=== PATIENT | male | born 1985 | race Caucasian/White ===

== ENCOUNTER 2019-05-23 17:45 | Inpatient (IN) ==
[2019-05-23 18:17] LABS: Appearance Urine Clear (Clear); Bacteria Urine Automated Negative (Negative); Blood Urine Negative (Negative); Color Urine Dark Yellow; Epithelial Cell Urine Auto 20-30 /lpf (0-5); Glucose Urine UA Negative (Negative); Ketones Urine 2+ (Negative); Leukocyte Esterase Urine Negative (Negative); Nitrite Urine Negative (Negative); Protein Urine Trace (Negative); RBC Urine Automated 0-4 /hpf (0-4); Specific Gravity Urine 1.038 (1.000-1.030); Urobilinogen Urine Negative (Negative); pH Urine 5.5 (4.5-7.5)
[2019-05-23 18:23] LABS: Bilirubin Urine Negative (Negative); Ictotest Urine Negative (Negative)
[2019-05-23 18:30] LABS: Amphetamines+Metham, Urine Neg (Neg); Barbiturates, Urine Neg (Neg); Benzodiazepine, Urine Neg (Neg); Cocaine, Urine Neg (Neg); MDMA (Ecstacy), Urine Neg (Neg); Methadone, Urine Neg (Neg); Opiate, Urine Neg (Neg); Phencyclidine, Urine Neg (Neg)
[2019-05-23 18:36] LABS: Mucus Urine Present (None Prsent)
[2019-05-23 18:51] LABS: Basophils # (auto) 0.03 K/uL (0-0.2); Basophils % (auto) 0.3 %; Eosinophils # (auto) 0.07 K/uL (0-0.5); Eosinophils % (auto) 0.7 %; Hematocrit (blood only) 46.5 % (42-52); Hemoglobin 16.5 g/dL (14.0-18.0); Immature Granulocytes # (auto) 0.02 K/uL (0.00-0.02); Immature Granulocytes % (auto) 0.2 %; Lymphocytes # (auto) 1.76 K/uL (1.2-3.4); Lymphocytes % (auto) 17.3 %; Mean Corpuscular Hgb Conc 35.5 g/dL (32-36); Mean Corpuscular Volume 87.2 fL (80-100); Mean Platelet Volume 12.2 fL (7.4-10.4); Monocytes % (auto) 8.9 %; Neutrophils # (auto) 7.38 K/uL (1.4-6.5); Neutrophils % (auto) 72.6 %; Platelet Count 147 K/uL (130-400); RDW Coefficient of Variation 14.6 % (11.5-14.5); RDW Standard Deviation 46.6 fL (36.4-46.3); Red Blood Count 5.33 M/uL (4.7-6.1); White Blood Count 10.16 K/uL (4.8-10.8)
[2019-05-23 19:01] LABS: Albumin Level 4.1 gm/dl (3.4-5.0); BUN Creatinine Ratio 10.8 (10-20); Calcium 9.3 mg/dl (8.5-10.1); Creatinine Clr Calc Pharmacy 145.5 ml/min; Est GFR (African American) 115.5; Est GFR (Non-African American) 99.7; Potassium 3.5 mmol/L (3.5-5.1)
--- NOTE | 2019-05-23 19:02 | Emergency Department Note ---
History of Present Illness General Chief complaint: Mental Health Evaluation Stated complaint: MENTAL HEALTH EVAL Time Seen by Provider: 05/23/19 17:53 History of Present Illness Provider complaint: Auditory hallucinations 34-year-old male with history of paranoid schizophrenia presents to the emergency department for auditory hallucinations. He presents to the emergency department with his flat optical element maker from [facility] where he lives. Textile Screen Printer reports that the patient has not slept the last 3 days. Patient reports he has been having auditory hallucinations. The auditory hallucinations have been making him sad and scared. The voices are threatening him and demanding money of him. The patient reports that the auditory hallucinations are sometimes a man's voice and sometimes a woman's voice. He states that the man's voice sometimes tells him to hurt other people and because of this he is afraid that he will hurt someone else. He stated he was afraid to travel with his flat optical element maker because he was afraid that he would hurt her due to the voice talking to him. The flat optical element maker at bedside also states that the patient had a recent medication change. She also reports that the patient did confide in her and state he was having suicidal thoughts earlier today. Home Medications Home Medications Medication Instructions Recorded Confirmed Type aripiprazole [Abilify Maintena] 300 mg IM Q4WK 05/21/19 05/23/19 History fluconazole [Diflucan] 200 mg PO DIRECTED PRN 05/21/19 05/23/19 History acetaminophen [Tylenol Extra 500 mg PO DIRECTED PRN 05/23/19 05/23/19 History Strength] aripiprazole [Abilify] 5 mg PO HS 05/23/19 05/23/19 History ascorbic acid (vitamin C) [Vitamin 1,000 mg PO BID 05/23/19 05/23/19 History C] benztropine 0.5 mg PO TID 05/23/19 05/23/19 History cholecalciferol (vitamin D3) 2,000 unit PO DAILY 05/23/19 05/23/19 History lorazepam [Ativan] 0.5 mg PO TID 05/23/19 05/23/19 History multivitamin 1 tab PO BID 05/23/19 05/23/19 History niacin 1,000 mg PO HS 05/23/19 05/23/19 History niacin 500 mg PO BID 05/23/19 05/23/19 History pyridoxine (vitamin B6) [Vitamin 100 mg PO QPM 05/23/19 05/23/19 History B-6] salmon oil-omega-3 fatty acids 1 cap PO DAILY 05/23/19 05/23/19 History [[place] Oil-1000] vitamin B complex 1 tab PO DAILY 05/23/19 05/23/19 History vitamin E 800 unit PO DAILY 05/23/19 05/23/19 History Allergies Allergy/AdvReac Type Severity Reaction Status Date / Time No Known Allergies Allergy Verified 05/23/19 18:03 Past Med/Surg History Medical History Mood disorder (Acute) No pertinent family history Paranoid schizophrenia (Chronic) Surgical History No pertinent past surgical history Social History Preferred Language: Kyrgyz Feels Safe at Home: Yes Smoking Status: Never smoker Hx Alcohol Use: No Hx Substance Use: No Review of Systems A total of 10 systems reviewed and were otherwise negative Physical Exam Vital Signs Vital Signs - 24 hr 05/23/19 17:47 Temperature 36.5 C Temperature Source Oral Pulse Rate 116 H Respiratory Rate 19 Blood Pressure 141/91 H Blood Pressure Mean 107 Pulse Oximetry 93 Sepsis Recent Fever Within 48 Hours No Sepsis Action Taken by Nursing No Action Required Physical Exam HENT: Exam performed. - Head: Normocephalic and atraumatic. - Right Ear: External ear normal. No mastoid tenderness. - Left Ear: External ear normal. No mastoid tenderness. - Mouth/Throat: The oropharynx is clear and moist. No trismus in the jaw. No dental abscesses or uvula swelling. No oropharyngeal exudate or tonsillar abscesses. EYES: Conjunctivae and EOM are normal. Pupils are equal, round, and reactive to light. Right eye exhibits no discharge. Left eye exhibits no discharge. No scleral icterus. NECK: Normal range of motion. Neck supple. No JVD present. No spinous process tenderness present. No carotid bruit present. No rigidity. No tracheal deviation and normal range of motion present. No Brudzinski's sign and no Kernig's sign noted. CV: Normal rate, regular rhythm, normal heart sounds and intact distal pulses. There is no peripheral edema. Palpable radial pulses bue. PULM/CHEST: Effort normal and breath sounds normal. No respiratory distress. No stridor. He has no wheezes. He has no rales. - Chest Wall: He exhibits no tenderness. ABD: The abdomen is soft. Bowel sounds are normal. He has no distension. No mass is present. There is no tenderness. There is no rebound, no guarding, no Edwards's sign and no tenderness at McBurney's point. Rovsig negative. MUSC/SKEL: Normal range of motion. There is no peripheral edema, tenderness or deformity. LYMPH: No cervical adenopathy. NEURO: He is alert and oriented to person, place, and time. He has normal strength. No cranial nerve deficit or sensory deficit. Coordination and gait normal. GCS eye subscore is 4. GCS verbal subscore is 5. GCS motor subscore is 6. Cerebellar tests wnl. SKIN: Skin is warm and dry. He is not diaphoretic. PSYCH: Patient appears sad and scared. Having auditory hallucinations currently. Course Course 1819: The patient was evaluated in room A8. A complete history and physical exam was performed. 1899: Patient medically cleared. Placed in observation at this time awaiting psychiatric evaluation and placement. 2216: Signs stable. Patient accepted into inpatient psychiatric [facility] in 3 S. Administered Medications Discontinued Medications Aripiprazole (Abilify) 5 mg PO NOW STA Stop: 05/23/19 21:58 Last Admin: 05/23/19 22:12 Dose: 5 mg Documented by: [id number] Benztropine Mesylate (Cogentin) 0.5 mg PO NOW STA Stop: 05/23/19 21:58 Last Admin: 05/23/19 22:12 Dose: 0.5 mg Documented by: [id number] Lorazepam (Ativan) 0.5 mg PO NOW STA Stop: 05/23/19 21:58 Last Admin: 05/23/19 22:12 Dose: 0.5 mg Documented by: [id number] Medical Decision Making Laboratory Data Result diagrams: 05/23/19 18:31 05/23/19 18:31 Lab Results 05/23/19 05/23/19 05/23/19 Range/Units 17:55 17:55 18:31 WBC 10.16 (4.8-10.8) K/uL RBC 5.33 (4.7-6.1) M/uL Hgb 16.5 (14.0-18.0) g/dL Hct 46.5 (42-52) % MCV 87.2 (80-100) fL MCH 31.0 (25-34) pg MCHC 35.5 (32-36) g/dL RDW Std Deviation 46.6 H (36.4-46.3) fL RDW Coeff of Fidelina 14.6 H (11.5-14.5) % Plt Count 147 (130-400) K/uL MPV 12.2 H (7.4-10.4) fL Immature Gran % (Auto) 0.2 % Neut % (Auto) 72.6 % Lymph % (Auto) 17.3 % [place] % (Auto) 8.9 % Eos % (Auto) 0.7 % Baso % (Auto) 0.3 % Immature Gran # (Auto) 0.02 (0.00-0.02) K/uL Neut # (Auto) 7.38 H (1.4-6.5) K/uL Lymph # (Auto) 1.76 (1.2-3.4) K/uL [place] # (Auto) 0.90 H (0.11-0.59) K/uL Eos # (Auto) 0.07 (0-0.5) K/uL Baso # (Auto) 0.03 (0-0.2) K/uL Sodium (136-145) mmol/L Potassium (3.5-5.1) mmol/L Chloride (98-107) mmol/L Carbon Dioxide (21-32) mmol/L Anion Gap (3-11) BUN (7-18) mg/dl Creatinine (0.6-1.4) mg/dl Est Cr Clr Drug Dosing ml/min Est GFR ( Amer) Est GFR (Non-Af Amer) BUN/Creatinine Ratio (10-20) Glucose (70-99) mg/dl Calcium (8.5-10.1) mg/dl Total Bilirubin (0.2-1) mg/dl AST (15-37) U/L ALT (12-78) U/L Alkaline Phosphatase (45-117) U/L Total Protein (6.4-8.2) gm/dl Albumin (3.4-5.0) gm/dl Globulin (2.5-4.0) gm/dl Albumin/Globulin Ratio (0.9-2) TSH (0.300-4.500) uIu/ml Urine Color Dark Yellow Urine Appearance Clear (Clear) Urine pH 5.5 (4.5-7.5) Ur Specific [place] 1.038 H (1.000-1.030) Urine Protein Trace H (Negative) Urine Glucose (UA) Negative (Negative) Urine Ketones 2+ H (Negative) Urine Blood Negative (Negative) Urine Nitrite Negative (Negative) Urine Bilirubin Negative (Negative) Urine Urobilinogen Negative (Negative) Ur Leukocyte Esterase Negative (Negative) Urine WBC (Auto) 1-5 (0-5) /hpf Urine RBC (Auto) 0-4 (0-4) /hpf U Hyaline Cast (Auto) 1-5 (0-5) /lpf U Epithel Cells (Auto) 20-30 H (0-5) /lpf Urine Bacteria (Auto) Negative (Negative) Urine Mucus Present A (None Prsent) Salicylates (2.8-20) mg/dl Urine Opiates Screen Neg (Neg) Ur Methadone, Qual Neg (Neg) Acetaminophen (10-30) ug/ml Urine Barbiturates Neg (Neg) Ur Phencyclidine (PCP) Neg (Neg) U Amphetamin/Meth Scrn Neg (Neg) MDMA (Ecstasy) Screen Neg (Neg) U Benzodiazepines Scrn Neg (Neg) Ur Cocaine Metabolite Neg (Neg) U Marijuana (THC) Screen Neg (Neg) Ethyl Alcohol mg/dL (0-3) mg/dl 05/23/19 05/23/19 05/23/19 Range/Units 18:31 18:31 18:31 WBC (4.8-10.8) K/uL RBC (4.7-6.1) M/uL Hgb (14.0-18.0) g/dL Hct (42-52) % MCV (80-100) fL MCH (25-34) pg MCHC (32-36) g/dL RDW Std Deviation (36.4-46.3) fL RDW Coeff of Fidelina (11.5-14.5) % Plt Count (130-400) K/uL MPV (7.4-10.4) fL Immature Gran % (Auto) % Neut % (Auto) % Lymph % (Auto) % [place] % (Auto) % Eos % (Auto) % Baso % (Auto) % Immature Gran # (Auto) (0.00-0.02) K/uL Neut # (Auto) (1.4-6.5) K/uL Lymph # (Auto) (1.2-3.4) K/uL [place] # (Auto) (0.11-0.59) K/uL Eos # (Auto) (0-0.5) K/uL Baso # (Auto) (0-0.2) K/uL Sodium 137 (136-145) mmol/L Potassium 3.5 (3.5-5.1) mmol/L Chloride 106 (98-107) mmol/L Carbon Dioxide 26 (21-32) mmol/L Anion Gap 5.0 (3-11) BUN 11 (7-18) mg/dl Creatinine 0.99 (0.6-1.4) mg/dl Est Cr Clr Drug Dosing 145.5 ml/min Est GFR ( Amer) 115.5 Est GFR (Non-Af Amer) 99.7 BUN/Creatinine Ratio 10.8 (10-20) Glucose 91 (70-99) mg/dl Calcium 9.3 (8.5-10.1) mg/dl Total Bilirubin 0.9 (0.2-1) mg/dl AST 43 H (15-37) U/L ALT 78 (12-78) U/L Alkaline Phosphatase 76 (45-117) U/L Total Protein 7.8 (6.4-8.2) gm/dl Albumin 4.1 (3.4-5.0) gm/dl Globulin 3.7 (2.5-4.0) gm/dl Albumin/Globulin Ratio 1.1 (0.9-2) TSH 1.310 (0.300-4.500) uIu/ml Urine Color Urine Appearance (Clear) Urine pH (4.5-7.5) Ur Specific [place] (1.000-1.030) Urine Protein (Negative) Urine Glucose (UA) (Negative) Urine Ketones (Negative) Urine Blood (Negative) Urine Nitrite (Negative) Urine Bilirubin (Negative) Urine Urobilinogen (Negative) Ur Leukocyte Esterase (Negative) Urine WBC (Auto) (0-5) /hpf Urine RBC (Auto) (0-4) /hpf U Hyaline Cast (Auto) (0-5) /lpf U Epithel Cells (Auto) (0-5) /lpf Urine Bacteria (Auto) (Negative) Urine Mucus (None Prsent) Salicylates < 1.7 L (2.8-20) mg/dl Urine Opiates Screen (Neg) Ur Methadone, Qual (Neg) Acetaminophen < 2 L (10-30) ug/ml Urine Barbiturates (Neg) Ur Phencyclidine (PCP) (Neg) U Amphetamin/Meth Scrn (Neg) MDMA (Ecstasy) Screen (Neg) U Benzodiazepines Scrn (Neg) Ur Cocaine Metabolite (Neg) U Marijuana (THC) Screen (Neg) Ethyl Alcohol mg/dL < 3.0 (0-3) mg/dl MDM Narrative Observation note Indication: Psychiatric evaluation/placement Patient, with history of paranoid schizophrenia was first seen at 1820 and the observation time began at 1900 and was necessary in order to determine psychiatric evaluation/placement. Upon re-evaluation, 3 hours and 17 minutes of observation revealed that the patient should be admitted for inpatient psychiatric help. Disposition date and time May 23, [id number]. Impression & Plan Paranoid schizophrenia, Acute psychosis, Hallucinations Discharge Plan Visit Data Chief Complaint: Mental Health Evaluation Stated Complaint: MENTAL HEALTH EVAL ED Provider: Ezekiel Aceves Discharge Problem: Paranoid schizophrenia, Acute psychosis, Hallucinations Patient Disposition: Admitted As Inpatient Forms Stand Alone Forms: [facility], Suicide Prevention Resources Prescriptions Prescriptions: No Action Abilify Maintena 400 mg suspension,extended rel syring 300 mg IM Q4WK RF: 0 fluconazole [Diflucan] 200 mg tablet 200 mg PO DIRECTED PRN (Reason: Acne) RF: 0 benztropine 0.5 mg Tablet 0.5 mg PO TID RF: 0 aripiprazole [Abilify] 5 mg Tablet 5 mg PO HS RF: 0 acetaminophen [Tylenol Extra Strength] 500 mg Tablet 500 mg PO DIRECTED PRN (Reason: pain/fever) RF: 0 multivitamin Tablet 1 tab PO BID RF: 0 [place] Oil-1000 1,000-200 mg Capsule 1 cap PO DAILY RF: 0 niacin 500 mg Tablet 500 mg PO BID RF: 0 niacin 1,000 mg Tablet Extended Release 1,000 mg PO HS RF: 0 ascorbic acid (vitamin C) [Vitamin C] 1,000 mg Tablet 1,000 mg PO BID RF: 0 cholecalciferol (vitamin D3) 2,000 unit Tablet,Chewable 2,000 unit PO DAILY RF: 0 vitamin E 400 unit Capsule 800 unit PO DAILY RF: 0 pyridoxine (vitamin B6) [Vitamin B-6] 100 mg Tablet 100 mg PO QPM RF: 0 vitamin B complex Tablet 1 tab PO DAILY RF: 0 lorazepam [Ativan] 0.5 mg Tablet 0.5 mg PO TID RF: 0 Referrals Referrals: Elia Lyons MD [Primary Care Provider] -
[2019-05-23 19:11] LABS: Albumin Globulin Ratio 1.1 (0.9-2); Bilirubin,Total 0.9 mg/dl (0.2-1); Globulin 3.7 gm/dl (2.5-4.0); Thyroid Stimulating Hormone 1.31 uIu/ml (0.300-4.500); Total Protein 7.8 gm/dl (6.4-8.2)
[2019-05-23 19:14] LABS: Acetaminophen < 2 ug/ml (10-30); Salicylate < 1.7 mg/dl (2.8-20)
[2019-05-23] MEDS ORDERED: LORazepam 0.5 MG TAB PO STA (21:57)
[2019-05-23] MEDS ORDERED: ARIPiprazole 5 MG TAB PO STA (21:57)
[2019-05-23] MEDS ORDERED: BENZTROPINE MESYLATE 0.5 MG TAB PO STA (21:57)
[2019-05-23] MEDS ORDERED: MAGNESIUM HYDROXIDE SUSP 30 ML UDC PO PRN (22:54)
[2019-05-23] MEDS ORDERED: ACETAMINOPHEN 325 MG TAB PO PRN (22:54)
[2019-05-23] MEDS ORDERED: SODIUM CHLORIDE 0.65% NA SOLN 45 ML (OCEAN) PRN (22:54)
[2019-05-23] MEDS ORDERED: ALUMINUM/MAGNESIUM SUSP 30 ML UDC PO PRN (22:54)
[2019-05-23] MEDS ORDERED: BISMUTH SUBSALICYLATE PER ML OMNICELL CHARGE PO PRN (22:54)
[2019-05-23] MEDS ORDERED: LORazepam 0.5 MG TAB PO PRN (22:55)
[2019-05-24] MEDS ORDERED: OMEGA-3 (PURIFIED FISH OIL) 1 GM CAP PO SCH (11:30)
[2019-05-24] MEDS ORDERED: ASCORBIC ACID 500 MG TAB PO SCH (11:30)
[2019-05-24] MEDS ORDERED: MULTIVITAMIN TAB PO SCH (11:30)
[2019-05-24] MEDS ORDERED: TOCOPHERYL, DL-ALPHA 400 UNITS CAP PO SCH (11:30)
[2019-05-24] MEDS ORDERED: CHOLECALCIFEROL 1,000 UNITS 25 MCG TAB PO SCH (11:30)
[2019-05-24] MEDS: BENZTROPINE MESYLATE 0.5 MG TAB PO SCH ×2 (12:10→20:55)
[2019-05-24] MEDS ORDERED: PALIPERIDONE 3 MG TABCR PO ONE (12:15)
[2019-05-24] MEDS: NIACIN 500 MG TAB PO SCH ×2 (12:18→12:41)
[2019-05-24] MEDS ORDERED: LORazepam 1 MG TAB PO STA (13:25)
--- NOTE | 2019-05-24 13:39 | History & Physical ---
Date of Service May 24, 2019 Impression / Recommendations Impression 34 yo male with shcizophrenia, paranoid type with long history of birmingham/paranoid delusions requiring multiple antipsychotic trials. He reports more breakthrough symptoms since Invega switched to Abilify. (1) Paranoid schizophrenia: The patient was admitted to the [facility] ([facility] mental [facility] unit) on q15 min checks (behavioral with suicide precautions) for safety. The patient will participate in group, recreational, and milieu therapies and will be offered additional individual and family sessions as clinically appropriate. Case discussed with Dr. Wise. Agreed to offer Invega and Ativan prns with plan to use in combo with Abilify maintenna over next month while Abilify in system. Avoid typicals as prone to EPS if possible. Inventory Assets Strengths: compliant with outpatient care, intelligent Risk Factors Assessment Male: Yes : Yes Do You Have Access To A Gun?: No Substance Use Disorders: No Previous Attempt: No Previous Psychiatric Hospitalization: Yes Protective Factors Assessment Responsible for Young Children: No Employed: No Supportive Family: Yes Psychiatric History Identifying Data CHAR BOLIVAR is a 34-year-old M who currently lives in [facility], has a history of schizophrenia, and was admitted on 05/23/19 22:20 on a 201 voluntary commitment for increase in paranoia and hallucinations for 2+ weeks. He is also on a 305 outpatient commitment. Chief Complaint "I just feel like things are caving in sometimes, like someone is going to get me". History of Present Illness Noted increase in paranoia and hallucinations (auditory) since March. Reports that switched from [facility] Invega sustenna to Ablify in December. Reports he is less sedated/fewer side effects overall on Abilify but "my thinking just isn't quite right". He reports feeling off topic and disorganized at times and now preoccupied with safety, particularly at night resulting in several days of poor sleep. He also reports decreased appetite and feels isolated from housemates. Normally he goes to [facility] but this was discontinued due to COVID-19. He was seen in ED on 05/20 but birmingham were rather non-specific and not command in nature so he was safety planned home. Sleep only worsened and birmingham did become command in sense he believed he may harm someone. He also made statements about there being an implant in his head and believes money was removed from his family accounts. Past Psychiatric History Current Psychiatric Diagnosis: Schizophrenia Outpatient Services: Brennon Wise MD for meds, Delma Durant ([facility]) for therapy, DOMENICA Barron Previous Psych Admissions: 2013 [facility] and [facility], [facility] for delusions Do You Have Access To A Gun?: No History of Previous Suicide Attempt: No Describe Attempts in the Past: denies Past Medication Trials: Haldol, Risperdal and Zyprexa have all been discontinued due to EPS. Saphris, perphenazine, Ativan, Invega Past Head Trauma/Neuro History History of Concussion/Seizure: No Allergies Allergy/AdvReac Type Severity Reaction Status Date / Time No Known Allergies Allergy Verified 05/23/19 18:03 Home Medications Home Medications Medication Instructions Recorded Confirmed Type aripiprazole [Abilify Maintena] 300 mg IM Q4WK 05/21/19 05/23/19 History fluconazole [Diflucan] 200 mg PO DIRECTED PRN 05/21/19 05/23/19 History acetaminophen [Tylenol Extra 500 mg PO DIRECTED PRN 05/23/19 05/23/19 History Strength] aripiprazole [Abilify] 5 mg PO HS 05/23/19 05/23/19 History ascorbic acid (vitamin C) [Vitamin 1,000 mg PO BID 05/23/19 05/23/19 History C] benztropine 0.5 mg PO TID 05/23/19 05/23/19 History cholecalciferol (vitamin D3) 2,000 unit PO DAILY 05/23/19 05/23/19 History lorazepam [Ativan] 0.5 mg PO TID 05/23/19 05/23/19 History multivitamin 1 tab PO BID 05/23/19 05/23/19 History niacin 1,000 mg PO HS 05/23/19 05/23/19 History niacin 500 mg PO BID 05/23/19 05/23/19 History pyridoxine (vitamin B6) [Vitamin 100 mg PO QPM 05/23/19 05/23/19 History B-6] salmon oil-omega-3 fatty acids 1 cap PO DAILY 05/23/19 05/23/19 History [[place] Oil-1000] vitamin B complex 1 tab PO DAILY 05/23/19 05/23/19 History vitamin E 800 unit PO DAILY 05/23/19 05/23/19 History Family History Family Mental Health History Comment: Schizophrenia in paternal uncle, perhaps a half-sis Alcohol History Hx of Alcohol Use Over the Past 12 Months: No Smoking Use Have You Smoked or Used Tobacco Products in the Last 30 Days: No Smoking Status: Never smoker Substance History Hx of Prescription Med Misuse Over the Past 12 Months: No Hx of Over the Counter Med Misuse Over the Past 12 Months: No Hx of Inhalent Misuse Over the Past 12 Months: No Hx of Organic Substance Use Over the Past 12 Months: No Hx of Illegal Substances/Street Drug Use Over Past 12 Months: No Problems as a Result of Past Substance Use: None Identified Personal History Living Arrangements: Supervised Living Living Arrangements Comments: Patient lives at a [facility]. He lives with 12 different individuals Childhood: grew up in [place] Highest Grade Completed: High School Graduate ([employer] [place]) and College Highest Grade Completed Comment: Bachelors in [employer] from [employer] Employment Status: Disabled (has volunteered at [employer] in the past) Marital Status: Single Beliefs That Will Affect Care: None Current Legal Problems: No Hx Traumatic Life Events: No Patient History Medical History Mood disorder (Acute) No pertinent family history Paranoid schizophrenia (Chronic) Surgical History No pertinent past surgical history Social History Preferred Language: Uzbek Communication Ability: Effective Inspector Set Up And Lay Out Required: No Beliefs That Will Affect Care: None Feels Safe at Home: Yes Smoking Status: Never smoker Hx Alcohol Use: No Hx Substance Use: No Review of Systems Review of Systems: All systems reviewed & are unremarkable except as noted in HPI & below Physical Exam Psychiatric: Orientation: alert and oriented x 3 Apperance: appropriately dressed Eye Contact: + fair eye contact Motor Behavior: steady gait and station Speech: normal rate/rhythm/volume of speech Affect: + depressed affect Mood: + anxious mood Thought Process: + circumstantial thought process Thought Content: + preoccupation and + paranoid Suicidal Thoughts: denies suicidal thoughts Homicidal Thoughts: denies homicidal thoughts Hallucinations: + auditory hallucinations Cognition: + attention not intact Estimated Intelligence: consistent with education level Insight: + poor insight Judgement: + poor judgement Vital Signs (Past 24 Hours): Last Vital Signs Temp 36.5 C 05/24/19 06:25 Pulse 90 05/24/19 06:26 Resp 18 05/24/19 06:25 BP 111/75 05/24/19 06:26 Pulse Ox 97 05/23/19 23:41 Results & Data ([facility]) Laboratory Results Laboratory Results - last 24 hr 05/23/19 05/23/19 05/23/19 17:55 17:55 18:31 WBC 10.16 RBC 5.33 Hgb 16.5 Hct 46.5 MCV 87.2 MCH 31.0 MCHC 35.5 RDW Std Deviation 46.6 H RDW Coeff of Fidelina 14.6 H Plt Count 147 MPV 12.2 H Immature Gran % (Auto) 0.2 Neut % (Auto) 72.6 Lymph % (Auto) 17.3 [place] % (Auto) 8.9 Eos % (Auto) 0.7 Baso % (Auto) 0.3 Immature Gran # (Auto) 0.02 Neut # (Auto) 7.38 H Lymph # (Auto) 1.76 [place] # (Auto) 0.90 H Eos # (Auto) 0.07 Baso # (Auto) 0.03 Sodium Potassium Chloride Carbon Dioxide Anion Gap BUN Creatinine Est Cr Clr Drug Dosing Est GFR ( Amer) Est GFR (Non-Af Amer) BUN/Creatinine Ratio Glucose Calcium Total Bilirubin AST ALT Alkaline Phosphatase Total Protein Albumin Globulin Albumin/Globulin Ratio TSH Urine Color Dark Yellow Urine Appearance Clear Urine pH 5.5 Ur Specific [place] 1.038 H Urine Protein Trace H Urine Glucose (UA) Negative Urine Ketones 2+ H Urine Blood Negative Urine Nitrite Negative Urine Bilirubin Negative Urine Urobilinogen Negative Ur Leukocyte Esterase Negative Urine WBC (Auto) 1-5 Urine RBC (Auto) 0-4 U Hyaline Cast (Auto) 1-5 U Epithel Cells (Auto) 20-30 H Urine Bacteria (Auto) Negative Urine Mucus Present A Salicylates Urine Opiates Screen Neg Ur Methadone, Qual Neg Acetaminophen Urine Barbiturates Neg Ur Phencyclidine (PCP) Neg U Amphetamin/Meth Scrn Neg MDMA (Ecstasy) Screen Neg U Benzodiazepines Scrn Neg Ur Cocaine Metabolite Neg U Marijuana (THC) Screen Neg Ethyl Alcohol mg/dL 05/23/19 05/23/19 05/23/19 18:31 18:31 18:31 WBC RBC Hgb Hct MCV MCH MCHC RDW Std Deviation RDW Coeff of Fidelina Plt Count MPV Immature Gran % (Auto) Neut % (Auto) Lymph % (Auto) [place] % (Auto) Eos % (Auto) Baso % (Auto) Immature Gran # (Auto) Neut # (Auto) Lymph # (Auto) [place] # (Auto) Eos # (Auto) Baso # (Auto) Sodium 137 Potassium 3.5 Chloride 106 Carbon Dioxide 26 Anion Gap 5.0 BUN 11 Creatinine 0.99 Est Cr Clr Drug Dosing 145.5 Est GFR ( Amer) 115.5 Est GFR (Non-Af Amer) 99.7 BUN/Creatinine Ratio 10.8 Glucose 91 Calcium 9.3 Total Bilirubin 0.9 AST 43 H ALT 78 Alkaline Phosphatase 76 Total Protein 7.8 Albumin 4.1 Globulin 3.7 Albumin/Globulin Ratio 1.1 TSH 1.310 Urine Color Urine Appearance Urine pH Ur Specific [place] Urine Protein Urine Glucose (UA) Urine Ketones Urine Blood Urine Nitrite Urine Bilirubin Urine Urobilinogen Ur Leukocyte Esterase Urine WBC (Auto) Urine RBC (Auto) U Hyaline Cast (Auto) U Epithel Cells (Auto) Urine Bacteria (Auto) Urine Mucus Salicylates < 1.7 L Urine Opiates Screen Ur Methadone, Qual Acetaminophen < 2 L Urine Barbiturates Ur Phencyclidine (PCP) U Amphetamin/Meth Scrn MDMA (Ecstasy) Screen U Benzodiazepines Scrn Ur Cocaine Metabolite U Marijuana (THC) Screen Ethyl Alcohol mg/dL < 3.0 Current Inpatient Medications Current Inpatient Medications: Current Inpatient Medications Acetaminophen (Tylenol) 650 mg PO Q4H PRN PRN Reason: Headache or Minor Fever Stop: 06/22/19 22:53 Al Hydrox/Mg Hydrox/Simethicone (Maalox) 30 ml PO Q4H PRN PRN Reason: GI Upset Stop: 06/22/19 22:53 Aripiprazole (Abilify) 5 mg PO HS SARA Stop: 06/23/19 21:59 Benztropine Mesylate (Cogentin) 0.5 mg PO TID@1000,1400,2200 SARA Stop: 06/23/19 13:59 Last Admin: 05/24/19 12:10 Dose: 0.5 mg Documented by: Bismuth Subsalicylate (Kaopectate) 15 ml PO PRN PRN PRN Reason: Loose Stool Stop: 06/22/19 22:53 Hydroxyzine HCl (Vistaril) 50 mg PO HSZ PRN PRN Reason: Insomnia Stop: 06/22/19 22:53 Hydroxyzine HCl (Vistaril) 25 mg PO Q4H PRN PRN Reason: Anxiety Stop: 06/22/19 22:53 Lorazepam (Ativan) 0.5 mg PO TID PRN PRN Reason: Anxiety Stop: 06/22/19 22:54 Last Admin: 05/24/19 10:45 Dose: 0.5 mg Documented by: Magnesium Hydroxide (Milk Of Magnesia) 30 ml PO DAILY PRN PRN Reason: Constipation Stop: 06/22/19 22:53 Sodium Chloride ([place] Nasal) 1 - 2 sprays NA PRN PRN PRN Reason: Nasal Dryness/Congestion Stop: 06/22/19 22:53
[2019-05-24] MEDS ORDERED: VITAMIN B COMPLEX TAB PO SCH (14:00)
[2019-05-24] MEDS: LORazepam 1 MG TAB PO PRN (20:30)
[2019-05-24] MEDS ORDERED: PYRIDOXINE HCL 50 MG TAB PO SCH (21:00)
[2019-05-24] MEDS ORDERED: PALIPERIDONE 3 MG TABCR PO SCH (22:00)
[2019-05-24] MEDS ORDERED: NIACIN 500 MG TAB PO SCH (22:00)
[2019-05-24] MEDS ORDERED: ARIPiprazole 5 MG TAB PO SCH (22:00)
[2019-05-25] MEDS: LORazepam 1 MG TAB PO PRN ×3 (05:02→19:21)
[2019-05-25 08:13] LABS: Glucose Fasting 86 mg/dl (70-99)
[2019-05-25 08:19] LABS: Chol HDL Ratio 4; Cholesterol 192 mg/dl (0-200); HDL Cholesterol 53 mg/dl; LDL Cholesterol Calculated 118 mg/dl; Triglycerides 105 mg/dl (0-150); VLDL Cholesterol 21 mg/dl
[2019-05-25] MEDS: PALIPERIDONE 3 MG TABCR PO PRN (08:36)
[2019-05-25] MEDS: BENZTROPINE MESYLATE 0.5 MG TAB PO SCH ×3 (08:36→21:07)
--- NOTE | 2019-05-25 13:13 | Psychiatric Progress Note ---
Date of Service May 25, 2019 Impression / Recommendations Impression 34 yo male with shcizophrenia, paranoid type with long history of [place]/paranoid delusions requiring multiple antipsychotic trials. He reports more breakthrough symptoms since Invega switched to Abilify. (1) Paranoid schizophrenia: 05/23--The patient was admitted to the [facility] ([facility]) on q15 min checks (behavioral with suicide precautions) for safety. The patient will participate in group, recreational, and milieu therapies and will be offered additional individual and family sessions as clinically appropriate. Case discussed with Dr. Wise. Agreed to offer Invega and Ativan prns with plan to use in combo with Abilify maintenna over next month while Abilify in system. Avoid typicals as prone to EPS if possible. 05/24--increase Invega to 6 mg, he'd prefer am dosing. Will add standing Klonopin to minimize breakthrough/Ativan prns. Inventory Assets Strengths: compliant with outpatient care, intelligent Risk Factors Assessment Male: Yes : Yes Do You Have Access To A Gun?: No Substance Use Disorders: No Previous Attempt: No Previous Psychiatric Hospitalization: Yes Protective Factors Assessment Responsible for Young Children: No Employed: No Supportive Family: Yes Interval History Chief Complaint "I get messed up, can't think, worry about being watched". Review of Systems Sleep Information Total Hours of Sleep: 6 Sleep Comments: kept his room lights on dimly through the night Meal Information Percent Meal Consumed - Breakfast: 100 Percent Meal Consumed - Lunch: 100 Percent Meal Consumed - Dinner: 25 Nutrition Comment: pt verbalized he was not feeling very hungry Subjective Subjective Patient was seen & assessed and interval progress reviewed with nursing. Did take prns yesterday for thought blocking, general feeling of things being unsafe. Today states that he was thinking about cameras that are somewhat invisible yet also part of a computer matrix. Believes that $ will be taken from him. Won't elaborate much on b[place] but periods where clearly preoccupied. States he doesn't believe that can get his meds consistently at the [facility]. Then talked about some checking compulsions he's noticed/had since childhood. Physical Exam Psychiatric Orientation: alert and oriented x 3 Apperance: appropriately dressed Eye Contact: + fair eye contact Motor Behavior: steady gait and station Speech: normal rate/rhythm/volume of speech Affect: + depressed affect Mood: + anxious mood Thought Process: + circumstantial thought process Thought Content: + preoccupation and + paranoid Suicidal Thoughts: denies suicidal thoughts Homicidal Thoughts: denies homicidal thoughts Hallucinations: + auditory hallucinations Cognition: + attention not intact Estimated Intelligence: consistent with education level Insight: + poor insight Judgement: + poor judgement Vital Signs (Past 24 Hours) Last Vital Signs Temp 36.4 C L 05/25/19 06:16 Pulse 105 H 05/25/19 06:17 Resp 18 05/25/19 06:16 BP 141/89 H 05/25/19 06:17 Pulse Ox 97 05/23/19 23:41 Results & Data ([facility]) Laboratory Results Laboratory Results - last 24 hr 05/25/19 07:33 Fasting Glucose 86 Triglycerides 105 Cholesterol 192 LDL Cholesterol, Calc 118 VLDL Cholesterol, Calc 21 HDL Cholesterol 53 Cholesterol/HDL Ratio 4 Current Inpatient Medications Current Inpatient Medications: Current Inpatient Medications Acetaminophen (Tylenol) 650 mg PO Q4H PRN PRN Reason: Headache or Minor Fever Stop: 06/22/19 22:53 Al Hydrox/Mg Hydrox/Simethicone (Maalox) 30 ml PO Q4H PRN PRN Reason: GI Upset Stop: 06/22/19 22:53 Benztropine Mesylate (Cogentin) 0.5 mg PO TID@1000,1400,2200 [facility] Stop: 06/23/19 13:59 Last Admin: 05/25/19 08:36 Dose: 0.5 mg Documented by: Bismuth Subsalicylate (Kaopectate) 15 ml PO PRN PRN PRN Reason: Loose Stool Stop: 06/22/19 22:53 Hydroxyzine HCl (Vistaril) 50 mg PO HSZ PRN PRN Reason: Insomnia Stop: 06/22/19 22:53 Lorazepam (Ativan) 1 mg PO TID PRN PRN Reason: Anxiety Stop: 06/22/19 22:54 Last Admin: 05/25/19 10:20 Dose: 1 mg Documented by: Magnesium Hydroxide (Milk Of Magnesia) 30 ml PO DAILY PRN PRN Reason: Constipation Stop: 06/22/19 22:53 Paliperidone (Invega) 3 mg PO HS SARA Stop: 06/23/19 21:59 Last Admin: 05/24/19 20:56 Dose: 3 mg Documented by: Paliperidone (Invega) 3 mg PO Q6 PRN PRN Reason: Agitation Stop: 06/23/19 17:59 Last Admin: 05/25/19 08:36 Dose: 3 mg Documented by: Sodium Chloride ([place] Nasal) 1 - 2 sprays NA PRN PRN PRN Reason: Nasal Dryness/Congestion Stop: 06/22/19 22:53 Mental Health & Subst Abuse Tx Psychiatrist Name of Psychiatrist: Dr. Wise Therapist [facility]: [facility] Hand Stone Polisher Name of Hand Stone Polisher: Mumtaz Martínez Post Discharge Appointments Primary Care Physician Name Of Family Doctor: Dr. Lyons
[2019-05-25] MEDS: clonazePAM 0.5 MG TAB PO SCH ×2 (13:56→21:07)
[2019-05-25] MEDS: PALIPERIDONE 3 MG TABCR PO SCH (14:00)
[2019-05-26] MEDS: LORazepam 1 MG TAB PO PRN ×2 (06:56→15:15)
[2019-05-26] MEDS: BENZTROPINE MESYLATE 0.5 MG TAB PO SCH ×3 (08:10→21:30)
[2019-05-26] MEDS: PALIPERIDONE 3 MG TABCR PO SCH (08:10)
[2019-05-26] MEDS: clonazePAM 0.5 MG TAB PO SCH ×2 (08:10→21:30)
--- NOTE | 2019-05-26 10:49 | Psychiatric Progress Note ---
Date of Service May 26, 2019 Impression / Recommendations Impression 34 yo male with shcizophrenia, paranoid type with long history of [place]/paranoid delusions requiring multiple antipsychotic trials. He reports more breakthrough symptoms since Invega switched to Abilify. new cough today, no criteria for Covid testing. Mild sedation from Klonopin, ongoing delusions. (1) Paranoid schizophrenia: 05/23--The patient was admitted to the [facility] ([facility]) on q15 min checks (behavioral with suicide precautions) for safety. The patient will participate in group, recreational, and milieu therapies and will be offered additional individual and family sessions as clinically appropriate. Case discussed with Dr. Wise. Agreed to offer Invega and Ativan prns with plan to use in combo with Abilify maintenna over next month while Abilify in system. Avoid typicals as prone to EPS if possible. 05/24--increase Invega to 6 mg, he'd prefer am dosing. Will add standing Klonopin to minimize breakthrough/Ativan prns. 05/25--continue current med plan for today, if remains sedated may dose Klonopin TID, no evidence of NMS, if fever check CPK and consult with infection control. Inventory Assets Strengths: compliant with outpatient care, intelligent Risk Factors Assessment Male: Yes : Yes Do You Have Access To A Gun?: No Substance Use Disorders: No Previous Attempt: No Previous Psychiatric Hospitalization: Yes Protective Factors Assessment Responsible for Young Children: No Employed: No Supportive Family: Yes Interval History Chief Complaint dry cough, "I'm scared there are computer parts in me". Review of Systems Sleep Information Total Hours of Sleep: 6.5 Sleep Comments: pt on q-15 minute checks Meal Information Percent Meal Consumed - Breakfast: 100 Percent Meal Consumed - Lunch: 100 Percent Meal Consumed - Dinner: 100 Nutrition Comment: pt verbalized he was not feeling very hungry Subjective Subjective Patient was seen & assessed and interval progress reviewed with nursing and social work in treatment team. no fever, c/o dry cough this am. He is aware of thought blocking so continues to report to staff as happening when there is a presence in the room. Believes that he may be taken over by robots. He is able to tell me this is not real but it is distressing for him. Contact precautions discussed with school of nursing director. He had c/o blurry vision (apparently prior to admission) to staff. Tells me hard to read, no apparent issues with eye movements, suspect Abilify and will just need to work out of system. States he slept well for him, seems a bit tired from Klonopin this am. Physical Exam Psychiatric Orientation: alert Apperance: appropriately dressed and appropriately groomed Eye Contact: good eye contact Motor Behavior: no abnormal motor movements; n EPS Speech: normal rate/rhythm/volume of speech (though less spontaneous.) Affect: + blunted affect Mood: + anxious mood Thought Process: clear/coherent thought process Thought Content: + paranoid and + delusions Suicidal Thoughts: denies suicidal thoughts Homicidal Thoughts: denies homicidal thoughts Hallucinations: no auditory hallucinations and no visual hallucinations Cognition: + attention not intact Estimated Intelligence: consistent with education level Insight: + limited insight Judgement: + limited judgement Vital Signs (Past 24 Hours) Last Vital Signs Temp 37.2 C 05/26/19 10:14 Pulse 108 H 05/26/19 09:01 Resp 18 05/26/19 06:45 BP 119/79 05/26/19 06:46 Pulse Ox 97 05/23/19 23:41 Results & Data ([email or web address] Current Inpatient Medications Current Inpatient Medications: Current Inpatient Medications Acetaminophen (Tylenol) 650 mg PO Q4H PRN PRN Reason: Headache or Minor Fever Stop: 06/22/19 22:53 Al Hydrox/Mg Hydrox/Simethicone (Maalox) 30 ml PO Q4H PRN PRN Reason: GI Upset Stop: 06/22/19 22:53 Benztropine Mesylate (Cogentin) 0.5 mg PO TID@1000,1400,2200 [facility] Stop: 06/23/19 13:59 Last Admin: 05/26/19 08:10 Dose: 0.5 mg Documented by: Bismuth Subsalicylate (Kaopectate) 15 ml PO PRN PRN PRN Reason: Loose Stool Stop: 06/22/19 22:53 Clonazepam (Klonopin) 0.5 mg PO BID SARA Stop: 06/24/19 13:14 Last Admin: 05/26/19 08:10 Dose: 0.5 mg Documented by: Hydroxyzine HCl (Vistaril) 50 mg PO HSZ PRN PRN Reason: Insomnia Stop: 06/22/19 22:53 Lorazepam (Ativan) 1 mg PO TID PRN PRN Reason: Anxiety Stop: 06/22/19 22:54 Last Admin: 05/26/19 06:56 Dose: 1 mg Documented by: Magnesium Hydroxide (Milk Of Magnesia) 30 ml PO DAILY PRN PRN Reason: Constipation Stop: 06/22/19 22:53 Paliperidone (Invega) 3 mg PO Q6 PRN PRN Reason: Agitation Stop: 06/23/19 17:59 Last Admin: 05/25/19 08:36 Dose: 3 mg Documented by: Paliperidone (Invega) 6 mg PO QAM SARA Stop: 06/24/19 13:14 Last Admin: 05/26/19 08:10 Dose: 6 mg Documented by: Sodium Chloride ([place] Nasal) 1 - 2 sprays NA PRN PRN PRN Reason: Nasal Dryness/Congestion Stop: 06/22/19 22:53 Mental Health & Subst Abuse Tx Psychiatrist Name of Psychiatrist: Dr. Wise Therapist [facility]: [facility] Seaweed Harvester Name of Seaweed Harvester: Mumtaz Martínez Post Discharge Appointments Primary Care Physician Name Of Family Doctor: Dr. Lyons
[2019-05-26] MEDS: PALIPERIDONE 3 MG TABCR PO PRN (14:54)
--- NOTE | 2019-05-26 15:07 | Electrocardiogram Report ---
Test Reason : Blood Pressure : / mmHG Vent. Rate : 081 BPM Atrial Rate : 081 BPM P-R Int : 130 ms QRS Dur : 094 ms QT Int : 348 ms P-R-T Axes : 057 008 045 degrees QTc Int : 404 ms Sinus rhythm with sinus arrhythmia with occasional Premature ventricular complexes Possible Left atrial enlargement Borderline ECG Confirmed by Burke Rock ([id number]) on 05/26/2019 3:07:12 PM Referred By: REFERRED SELF Confirmed By:Burke Rock
[2019-05-27] MEDS: PALIPERIDONE 3 MG TABCR PO SCH (07:43)
[2019-05-27] MEDS: clonazePAM 0.5 MG TAB PO SCH ×2 (07:43→21:06)
--- NOTE | 2019-05-27 07:43 | Psychiatric Progress Note ---
Date of Service May 27, 2019 Impression / Recommendations Impression 34 yo male with shcizophrenia, paranoid type with long history of auditory hallucinations of voices and paranoid delusions requiring multiple antipsychotic trials. He reports more breakthrough symptoms since Invega switched to Abilify, so is being switched back. Mild sedation from Klonopin, but otherwise tolerating med changes well. He has ongoing delusions, AH and anxiety, and although he feels safe in the hospital, he does not feel safe outside. He remains at risk for suicide if discharged, and ongoing inpatient treatment is recommended. He is now on a 305 involuntary inpatient commitment. (1) Paranoid schizophrenia: 05/23--The patient was admitted to the [facility] ([facility]) on q15 min checks (behavioral with suicide precautions) for safety. The patient will participate in group, recreational, and milieu therapies and will be offered additional individual and family sessions as clinically appropriate. Case discussed with Dr. Wise. Agreed to offer Invega and Ativan prns with plan to use in combo with Abilify Maintena over next month while Abilify in system. Avoid typicals as prone to EPS if possible. 05/24--increase Invega to 6 mg, he'd prefer am dosing. Will add standing Klonopin to minimize breakthrough/Ativan prns. 05/25--continue current med plan for today, if remains sedated may dose Klonopin TID, no evidence of NMS, if fever check CPK and consult with infection control. 05/26--continue paliperidone 6 mg daily and 3 mg as needed, clonazepam 0.5 mg twice daily, and lorazepam 1 mg 3 times daily as needed. Patient remains afebrile and normotensive, but has had episodes of tachycardia. He reports resolution of cough and denies other URI symptoms. Tachycardia may be due to anxiety, as he reports feeling distraught about the command auditory hallucinations. --306 conversion hearing held today; --Schedule discharge planning meeting with [facility] staff and trimming caser. Care coordinated with Dr. Wise; will also notify his therapist Delma Durant of hospitalization. Inventory Assets Strengths: compliant with outpatient care, intelligent Risk Factors Assessment Male: Yes : Yes Do You Have Access To A Gun?: No Substance Use Disorders: No Previous Attempt: No Previous Psychiatric Hospitalization: Yes Protective Factors Assessment Responsible for Young Children: No Employed: No Supportive Family: Yes Interval History Identifying Information CHAR BOLIVAR is a 34-year-old M who currently lives in [facility] intermediate, has a history of schizophrenia, and was admitted on 05/23/19 22:20 on a 201 voluntary commitment for increase in paranoia and hallucinations for 2+ weeks. He is also on a 305 outpatient commitment, and 306 conversion held 05/27/2019. Chief Complaint "I tried to check myself in, but I was turned away". Review of Systems Sleep Information Total Hours of Sleep: 5.5 Sleep Comments: pt on q-15 minute checks Meal Information Percent Meal Consumed - Breakfast: 100 Percent Meal Consumed - Lunch: 100 Percent Meal Consumed - Dinner: 100 Nutrition Comment: pt verbalized he was not feeling very hungry Subjective Subjective Patient was seen & assessed and interval progress reviewed with nursing and social work. Staff report he reported a dry cough yesterday, was afebrile but slightly tachycardic, denied chest pain and S OB. He was given cough drops, and later reported resolution of the cough. He has a 306 conversion hearing today, as he is on a 305 involuntary outpatient commitment. Social work contacted his outpatient trimming caser, Beatrice, yesterday, who states she meets with him every 1 to 2 weeks, and will be present by phone for his conversion hearing. She also spoke with Anna, his goal insurance agency sales manager at [facility], who reported that the patient is good at attending appointments and loves routine. She noted that he had been increasingly disorganized over the past week, which was a significant change in a sign of decompensation. He continued to report "scary" auditory hallucinations telling him that his life was not worth living, that he is worthless, and feeling that he needed help. He received a dose of paliperidone 3 mg as needed. He then reported feeling anxious and tearful, and received lorazepam 1 mg. He also utilized a stress ball and walked laps around the unit. He told staff that he was considering returning home with his parents, who told him he was welcome there anytime, as he was displeased about how his medication is dispensed at the [facility], but also feels his parents can be unstable at times. On my assessment, he reports he feels safe here, but continues to have AH telling him they will kill him, which come and go, and are less intense than on admission. States he was so fearful that "I'd meet my end at the hands of bad people, and it sarah be soon," that he contemplated ending his own life. He states that "the delusions I had the past week were the strongest I've ever had," and were very frightening. He is fearful of leaving the hospital, stating he doesn't feel safe, and agrees with his treatment plan. He is tolerating the medication changes well, and asks multiple appropriate questions. He wants to know if there is a medication that will "take away all my symptoms." He expresses frustration that the [facility] staff wouldn't give him his meds the way Dr. Wise had advised him to take them, stating he saw dr. Wise multiple times in a 3 days period prior to admission and they were adjusting meds to try to improve his sleep, but [facility] staff insisted he take meds the way they'd been prescribed previously. He declined to attend his 306 converstion hearing. Physical Exam Psychiatric Orientation: alert and cooperative Apperance: appropriately dressed, appropriately groomed and appeared stated age Eye Contact: + poor eye contact Motor Behavior: steady gait and station and no abnormal motor movements Speech: normal rate/rhythm/volume of speech Affect: + anxious affect and mood congruent with affect Mood: + anxious mood Thought Process: goal directed thought process Thought Content: + paranoid and + persecution Suicidal Thoughts: + reports suicidal thoughts Homicidal Thoughts: denies homicidal thoughts Hallucinations: + auditory hallucinations Cognition: recent memory grossly intact, attention grossly intact and language grossly intact Insight: good insight Judgement: good judgement Vital Signs (Past 24 Hours) Last Vital Signs Temp 36.5 C 05/27/19 06:43 Pulse 98 H 05/27/19 06:44 Resp 18 05/27/19 06:43 BP 126/87 05/27/19 06:44 Pulse Ox 96 05/26/19 17:35 Results & Data ([facility]) Current Inpatient Medications Current Inpatient Medications: Current Inpatient Medications Acetaminophen (Tylenol) 650 mg PO Q4H PRN PRN Reason: Headache or Minor Fever Stop: 06/22/19 22:53 Al Hydrox/Mg Hydrox/Simethicone (Maalox) 30 ml PO Q4H PRN PRN Reason: GI Upset Stop: 06/22/19 22:53 Benztropine Mesylate (Cogentin) 0.5 mg PO TID@1000,1400,2200 [facility] Stop: 06/23/19 13:59 Last Admin: 05/26/19 21:30 Dose: 0.5 mg Documented by: Bismuth Subsalicylate (Kaopectate) 15 ml PO PRN PRN PRN Reason: Loose Stool Stop: 06/22/19 22:53 Clonazepam (Klonopin) 0.5 mg PO BID SARA Stop: 06/24/19 13:14 Last Admin: 05/26/19 21:30 Dose: 0.5 mg Documented by: Hydroxyzine HCl (Vistaril) 50 mg PO HSZ PRN PRN Reason: Insomnia Stop: 06/22/19 22:53 Lorazepam (Ativan) 1 mg PO TID PRN PRN Reason: Anxiety Stop: 06/22/19 22:54 Last Admin: 05/26/19 15:15 Dose: 1 mg Documented by: Magnesium Hydroxide (Milk Of Magnesia) 30 ml PO DAILY PRN PRN Reason: Constipation Stop: 06/22/19 22:53 Paliperidone (Invega) 3 mg PO Q6 PRN PRN Reason: Agitation Stop: 06/23/19 17:59 Last Admin: 05/26/19 14:54 Dose: 3 mg Documented by: Paliperidone (Invega) 6 mg PO QAM SARA Stop: 06/24/19 13:14 Last Admin: 05/26/19 08:10 Dose: 6 mg Documented by: Sodium Chloride ([place] Nasal) 1 - 2 sprays NA PRN PRN PRN Reason: Nasal Dryness/Congestion Stop: 06/22/19 22:53 Mental Health & Subst Abuse Tx Psychiatrist Name of Psychiatrist: Dr. Wise Psychiatrist's Psychiatric Appointment Comment: [address] [facility], [address], [place] Therapist Name of Therapist: Elli Durant Therapist's Therapy Appointment Comment: [address] [facility] [place] Aws Software Development Engineer Name of Aws Software Development Engineer: [facility] Cornelia Barron Phone Number for Aws Software Development Engineer: [phone] Post Discharge Appointments Primary Care Physician Name Of Family Doctor: Cristiana Lyons Primary Care Provider Appointment Comment: [address] [facility], [place] Contact Information Discharge Discharge Address: [address] [place] [address], [id number]
[2019-05-27] MEDS: BENZTROPINE MESYLATE 0.5 MG TAB PO SCH ×3 (10:05→21:06)
[2019-05-27] MEDS: LORazepam 1 MG TAB PO PRN (14:16)
[2019-05-28] MEDS: clonazePAM 0.5 MG TAB PO SCH ×2 (07:45→21:38)
[2019-05-28] MEDS: PALIPERIDONE 3 MG TABCR PO SCH (07:46)
[2019-05-28] MEDS: BENZTROPINE MESYLATE 0.5 MG TAB PO SCH ×3 (07:46→21:38)
--- NOTE | 2019-05-28 08:08 | Psychiatric Progress Note ---
Date of Service May 28, 2019 Impression / Recommendations Impression 34 yo male with shcizophrenia, paranoid type with long history of auditory hallucinations of voices and paranoid delusions requiring multiple antipsychotic trials. He reports more breakthrough symptoms since Invega switched to Abilify, so is being switched back. Mild sedation from Klonopin, but otherwise tolerating med changes well. He has ongoing delusions, AH and anxiety, although he reports improvement in these symptoms over the past 1-2 days. Pt does admit to feeling safe in the hospital, but remains unable to contract for safety outside of the inpatient setting. He remains at risk for suicide if discharged, and ongoing inpatient treatment is recommended. He is now on a 305 involuntary inpatient commitment. (1) Paranoid schizophrenia: 05/23--The patient was admitted to the [facility] ([facility] mental health unit) on q15 min checks (behavioral with suicide precautions) for safety. The patient will participate in group, recreational, and milieu therapies and will be offered additional individual and family sessions as clinically appropriate. Case discussed with Dr. Wise. Agreed to offer Invega and Ativan prns with plan to use in combo with Abilify Maintena over next month while Abilify in system. Avoid typicals as prone to EPS if possible. 05/24--increase Invega to 6 mg, he'd prefer am dosing. Will add standing Klonopin to minimize breakthrough/Ativan prns. 05/25--continue current med plan for today, if remains sedated may dose Klonopin TID, no evidence of NMS, if fever check CPK and consult with infection control. 05/26--continue paliperidone 6 mg daily and 3 mg as needed, clonazepam 0.5 mg twice daily, and lorazepam 1 mg 3 times daily as needed. Patient remains afebrile and normotensive, but has had episodes of tachycardia. He reports resolution of cough and denies other URI symptoms. Tachycardia may be due to anxiety, as he reports feeling distraught about the command auditory hallucinations. --306 conversion hearing held today; --Schedule discharge planning meeting with CRR staff and case liner. Care coordinated with Dr. Wise; will also notify his therapist Delma Durant of hospitalization. 05/27--Continue current medication regimen - anticipate conversion to Invega Sustenna ~4 weeks after previous Abilify Maintena injection was given. Pt currently on a 305 inpatient commitment. --Dietary consult placed due to patient's focus on snack choices and reported concern surrounding significant weight increase when on Invega Sustenna in the past. --Discharge planning meeting scheduled for 06/02 with CRR staff and CM --Coordinate outpatient appointments Inventory Assets Strengths: compliant with outpatient care, intelligent Risk Factors Assessment Male: Yes : Yes Do You Have Access To A Gun?: No Substance Use Disorders: No Previous Attempt: No Previous Psychiatric Hospitalization: Yes Protective Factors Assessment Responsible for Young Children: No Employed: No Supportive Family: Yes Interval History Identifying Information CHAR BOLIVAR is a 34-year-old M who currently lives in [facility] home, has a history of schizophrenia, and was admitted on 05/23/19 22:20 on a 201 voluntary commitment for increase in paranoia and hallucinations for 2+ weeks. He is also on a 305 outpatient commitment, and 306 conversion held 05/27/2019. Chief Complaint "Um, things are ok. I slept pretty well last night." Review of Systems Notes Constitutional: denied Cardiovascular: denied Respiratory: denied Gastrointestinal: denied Neurological: denied Psychiatric: denies symptoms other than stated above Total of at least 10 systems reviewed, pertinent positives as above and in HPI. Sleep Information Total Hours of Sleep: 6.5 Sleep Comments: pt on q-15 minute checks Meal Information Percent Meal Consumed - Breakfast: 100 Percent Meal Consumed - Lunch: 40 Percent Meal Consumed - Dinner: 100 Nutrition Comment: per meal record Subjective Subjective Patient was seen & assessed and interval progress reviewed with treatment team. Staff report the patient has been doing well, and is tolerating medication adjustments. Pt reports ongoing auditory hallucinations, and continues to be somewhat fixated on his negative thoughts. Pt was seen today to assess progress since admission. Pt reports that he is noticing some improvement in his psychiatric symptoms with recent medication changes. While he admits to improvement in his paranoid thoughts and auditory hallucinations, he continues to be concerned about the possibility of harm to self if he were to leave the hospital. Pt is able to discuss appropriate concerns surrounding medications. While patient does feel that Invega had been helpful for his negative thoughts and auditory hallucinations in the past, he is concerned about some of the side effects he had with the previous medication trial. Once specific concern is significant weight gain. Pt was offered and accepted a dietary consultation with hopes to educate patient on healthy nutrition options. Pt denies SI, but states he would be unable to predict is ability to maintain his safety outside of the hospital setting. Pt denies other needs or concerns today. Physical Exam Psychiatric Orientation: alert, oriented x 3 and cooperative Apperance: appropriately dressed, appropriately groomed and appeared stated age Eye Contact: good eye contact Motor Behavior: steady gait and station and no abnormal motor movements Speech: normal rate/rhythm/volume of speech Affect: + anxious affect, + constricted affect and mood congruent with affect Mood: + anxious mood Thought Process: goal directed thought process Thought Content: + paranoid Suicidal Thoughts: denies suicidal thoughts but reports he is unable to contract for safety outside of the inpatient setting Homicidal Thoughts: denies homicidal thoughts Hallucinations: + auditory hallucinations (but does report improvement with recent medication changes); no visual hallucinations Cognition: attention grossly intact and language grossly intact Insight: good insight Judgement: good judgement Vital Signs (Past 24 Hours) Last Vital Signs Temp 36.5 C 05/28/19 06:51 Pulse 112 H 05/28/19 06:51 Resp 18 05/28/19 06:51 BP 138/82 05/28/19 06:51 Pulse Ox 96 05/26/19 17:35 Results & Data (U) Current Inpatient Medications Current Inpatient Medications: Current Inpatient Medications Acetaminophen (Tylenol) 650 mg PO Q4H PRN PRN Reason: Headache or Minor Fever Stop: 06/22/19 22:53 Al Hydrox/Mg Hydrox/Simethicone (Maalox) 30 ml PO Q4H PRN PRN Reason: GI Upset Stop: 06/22/19 22:53 Benztropine Mesylate (Cogentin) 0.5 mg PO TID@1000,1400,2200 [facility] Stop: 06/23/19 13:59 Last Admin: 05/28/19 07:46 Dose: 0.5 mg Documented by: Bismuth Subsalicylate (Kaopectate) 15 ml PO PRN PRN PRN Reason: Loose Stool Stop: 06/22/19 22:53 Clonazepam (Klonopin) 0.5 mg PO BID SARA Stop: 06/24/19 13:14 Last Admin: 05/28/19 07:45 Dose: 0.5 mg Documented by: Hydroxyzine HCl (Vistaril) 50 mg PO HSZ PRN PRN Reason: Insomnia Stop: 06/22/19 22:53 Lorazepam (Ativan) 1 mg PO TID PRN PRN Reason: Anxiety Stop: 06/22/19 22:54 Last Admin: 05/27/19 14:16 Dose: 1 mg Documented by: Magnesium Hydroxide (Milk Of Magnesia) 30 ml PO DAILY PRN PRN Reason: Constipation Stop: 06/22/19 22:53 Paliperidone (Invega) 3 mg PO Q6 PRN PRN Reason: Agitation Stop: 06/23/19 17:59 Last Admin: 05/26/19 14:54 Dose: 3 mg Documented by: Paliperidone (Invega) 6 mg PO QAM SARA Stop: 06/24/19 13:14 Last Admin: 05/28/19 07:46 Dose: 6 mg Documented by: Sodium Chloride (Modena Nasal) 1 - 2 sprays NA PRN PRN PRN Reason: Nasal Dryness/Congestion Stop: 06/22/19 22:53 Mental Health & Subst Abuse Tx Psychiatrist Name of Psychiatrist: Dr. Wise Psychiatrist's Psychiatric Appointment Comment: [address] [place] [address], [address] [place] [address] Therapist Name of Therapist: Brand[place] - Delma Durant Therapist's Date of Therapist Appointment: 06/05/19 Time of Therapist Appointment: 1:00 p.m. Therapy Appointment Comment: Telephone appt Photographic Specialist Name of Photographic Specialist: [facility] Zeferino Barron Phone Number for Photographic Specialist: [phone] Post Discharge Appointments Primary Care Physician Name Of Family Doctor: Cristiana Lyons Primary Care Provider Appointment Comment: [address] [facility] Other #1: Name of Aftercare Appointment: Essence HANSEN Phone Number of Aftercare Appointment: [phone] Aftercare Appointment Comment: [address] [place] [address] Contact Information Discharge Discharge Address: [address] [place] [id number]
[2019-05-28] MEDS: LORazepam 1 MG TAB PO PRN (16:40)
[2019-05-28] MEDS: PALIPERIDONE 3 MG TABCR PO PRN (20:00)
[2019-05-29] MEDS: PALIPERIDONE 3 MG TABCR PO SCH (07:48)
[2019-05-29] MEDS: BENZTROPINE MESYLATE 0.5 MG TAB PO SCH ×3 (07:49→21:05)
[2019-05-29] MEDS: clonazePAM 0.5 MG TAB PO SCH ×2 (07:49→21:05)
--- NOTE | 2019-05-29 08:50 | Psychiatric Progress Note ---
Date of Service May 29, 2019 Impression / Recommendations Impression 34 yo male with shcizophrenia, paranoid type with long history of auditory hallucinations of voices and paranoid delusions requiring multiple antipsychotic trials. He reports more breakthrough symptoms since Invega switched to Abilify, so is being switched back. Mild sedation from Klonopin, but otherwise tolerating med changes well. He has ongoing delusions, AH and anxiety, although he reports improvement in these symptoms over the past 1-2 days. Pt does admit to feeling safe in the hospital, but remains unable to contract for safety outside of the inpatient setting. He remains at risk for suicide if discharged, and ongoing inpatient treatment is recommended. He is now on a 305 involuntary inpatient commitment. (1) Paranoid schizophrenia: 05/23--The patient was admitted to the [facility] ([facility] mental health unit) on q15 min checks (behavioral with suicide precautions) for safety. The patient will participate in group, recreational, and milieu therapies and will be offered additional individual and family sessions as clinically appropriate. Case discussed with Dr. Wise. Agreed to offer Invega and Ativan prns with plan to use in combo with Abilify Maintena over next month while Abilify in system. Avoid typicals as prone to EPS if possible. 05/24--increase Invega to 6 mg, he'd prefer am dosing. Will add standing Klonopin to minimize breakthrough/Ativan prns. 05/25--continue current med plan for today, if remains sedated may dose Klonopin TID, no evidence of NMS, if fever check CPK and consult with infection control. 05/26--continue paliperidone 6 mg daily and 3 mg as needed, clonazepam 0.5 mg twice daily, and lorazepam 1 mg 3 times daily as needed. Patient remains afebrile and normotensive, but has had episodes of tachycardia. He reports resolution of cough and denies other URI symptoms. Tachycardia may be due to anxiety, as he reports feeling distraught about the command auditory hallucinations. --306 conversion hearing held today; --Schedule discharge planning meeting with [facility] staff and case assembler. Care coordinated with Dr. Wise; will also notify his therapist Delma Durant of hospitalization. 05/27--Continue current medication regimen - anticipate conversion to Invega Sustenna ~4 weeks after previous Abilify Maintena injection was given. Pt currently on a 305 inpatient commitment. --Dietary consult placed due to patient's focus on snack choices and reported concern surrounding significant weight increase when on Invega Sustenna in the past. --Discharge planning meeting scheduled for 06/02 with CRR staff and CM --Coordinate outpatient appointments 05/28--Continue current medication regimen --Remainder of treatment plan as above Inventory Assets Strengths: compliant with outpatient care, intelligent Risk Factors Assessment Male: Yes : Yes Do You Have Access To A Gun?: No Substance Use Disorders: No Previous Attempt: No Previous Psychiatric Hospitalization: Yes Protective Factors Assessment Responsible for Young Children: No Employed: No Supportive Family: Yes Interval History Identifying Information CHAR BOLIVAR is a 34-year-old M who currently lives in [facility] custodial, has a history of schizophrenia, and was admitted on 05/23/19 22:20 on a 201 voluntary commitment for increase in paranoia and hallucinations for 2+ weeks. He is also on a 305 outpatient commitment, and 306 conversion held 05/27/2019. Chief Complaint "I'm feeling a little better. Sleep is always good for me." Review of Systems Notes Constitutional: reports improved sleep for the last several nights Cardiovascular: denied Respiratory: denied Gastrointestinal: denied Neurological: denied Psychiatric: denies symptoms other than stated above Total of at least 10 systems reviewed, pertinent positives as above and in HPI. Sleep Information Total Hours of Sleep: 5.5 Sleep Comments: pt on q-15 minute checks Meal Information Percent Meal Consumed - Breakfast: 100 Percent Meal Consumed - Lunch: 100 Percent Meal Consumed - Dinner: 100 Nutrition Comment: per meal record Subjective Subjective Patient was seen & assessed and interval progress reviewed with nursing and social work. Staff report the patient had a somewhat difficult evening, experiencing increased anxiety and reported having auditory hallucinations contributing to thoughts to "hurt someone" - though no specific individual identified. Pt did process these thoughts appropriately with staff. Pt seen today to assess progress since admission. Pt states he is feeling "a little better" this morning, and rated his mood an 8/10 during community meeting. Pt states that he has been sleeping well the past several nights, and that this generally leads to improvement in his mood. Pt was asked about his anxiety lev el, to which he responded "what's anxiety again?" We discussed the different ways in which anxiety manifests, and patient was able to talk about several coping strategies he has trialed over time. Pt does admit to "worrying about my future", but admits "I like my life, I believe we're all just here to have a good time." Pt denies acute SI, but continues to report concerns about his safety should he return home. He admits to ongoing paranoia and auditory hallucinations that, while improved, continue to be concerning to the patient. He denies other needs or concerns at this time. Physical Exam Psychiatric Orientation: alert, oriented x 3 and cooperative Apperance: appropriately dressed (casually dressed, wearing khaki pants and a polo shirt), appropriately groomed and appeared stated age Eye Contact: good eye contact Motor Behavior: steady gait and station and no abnormal motor movements Speech: normal rate/rhythm/volume of speech Affect: + anxious affect and mood congruent with affect Mood: + anxious mood Thought Process: goal directed thought process and clear/coherent thought process Thought Content: + paranoid and + delusions (though reportedly improving) Suicidal Thoughts: denies suicidal thoughts (but continues to report feeling unsafe for discharge home) Hallucinations: + auditory hallucinations (ongoing, but patient reports some improvement); no visual hallucinations Cognition: recent memory grossly intact, attention grossly intact and language grossly intact Insight: good insight Judgement: good judgement Vital Signs (Past 24 Hours) Last Vital Signs Temp 36.5 C 05/28/19 06:51 Pulse 109 H 05/29/19 06:49 Resp 18 05/29/19 06:47 BP 125/86 05/29/19 06:49 Pulse Ox 96 05/26/19 17:35 Results & Data ([facility]) Current Inpatient Medications Current Inpatient Medications: Current Inpatient Medications Acetaminophen (Tylenol) 650 mg PO Q4H PRN PRN Reason: Headache or Minor Fever Stop: 06/22/19 22:53 Al Hydrox/Mg Hydrox/Simethicone (Maalox) 30 ml PO Q4H PRN PRN Reason: GI Upset Stop: 06/22/19 22:53 Benztropine Mesylate (Cogentin) 0.5 mg PO TID@1000,1400,2200 SARA Stop: 06/23/19 13:59 Last Admin: 05/29/19 07:49 Dose: 0.5 mg Documented by: Bismuth Subsalicylate (Kaopectate) 15 ml PO PRN PRN PRN Reason: Loose Stool Stop: 06/22/19 22:53 Clonazepam (Klonopin) 0.5 mg PO BID SARA Stop: 06/24/19 13:14 Last Admin: 05/29/19 07:49 Dose: 0.5 mg Documented by: Hydroxyzine HCl (Vistaril) 50 mg PO HSZ PRN PRN Reason: Insomnia Stop: 06/22/19 22:53 Last Admin: 05/28/19 23:36 Dose: 50 mg Documented by: Lorazepam (Ativan) 1 mg PO TID PRN PRN Reason: Anxiety Stop: 06/22/19 22:54 Last Admin: 05/28/19 16:40 Dose: 1 mg Documented by: Magnesium Hydroxide (Milk Of Magnesia) 30 ml PO DAILY PRN PRN Reason: Constipation Stop: 06/22/19 22:53 Paliperidone (Invega) 3 mg PO Q6 PRN PRN Reason: Agitation Stop: 06/23/19 17:59 Last Admin: 05/28/19 20:00 Dose: 3 mg Documented by: Paliperidone (Invega) 6 mg PO QAM SARA Stop: 06/24/19 13:14 Last Admin: 05/29/19 07:48 Dose: 6 mg Documented by: Sodium Chloride (Lander Nasal) 1 - 2 sprays NA PRN PRN PRN Reason: Nasal Dryness/Congestion Stop: 06/22/19 22:53 Mental Health & Subst Abuse Tx Psychiatrist Name of Psychiatrist: Dr. Wise Psychiatrist's Psychiatric Appointment Comment: [address] [place] [address], [address] Therapist Name of Therapist: [facility] - Delma Durant Therapist's Date of Therapist Appointment: 06/05/19 Time of Therapist Appointment: 1:00 p.m. Therapy Appointment Comment: Telephone appt Mill Control Operator Name of Mill Control Operator: [employer] Zeferino Barron Phone Number for Mill Control Operator: [phone] Post Discharge Appointments Primary Care Physician Name Of Family Doctor: Cristiana - Dr. Lyons Primary Care Provider Appointment Comment: [address] [facility] Other #1: Name of Aftercare Appointment: Essence HANSEN Phone Number of Aftercare Appointment: [phone] Aftercare Appointment Comment: [address] [facility], [place] [address] Contact Information Discharge Discharge Address: [address] [place] [address], [place] [address]
[2019-05-29] MEDS: LORazepam 1 MG TAB PO PRN (18:46)
[2019-05-30] MEDS: clonazePAM 0.5 MG TAB PO SCH ×2 (08:40→20:53)
[2019-05-30] MEDS: PALIPERIDONE 3 MG TABCR PO SCH (08:40)
[2019-05-30] MEDS: BENZTROPINE MESYLATE 0.5 MG TAB PO SCH ×3 (08:41→20:53)
[2019-05-30] MEDS: LORazepam 1 MG TAB PO PRN (09:17)
--- NOTE | 2019-05-30 10:51 | Psychiatric Progress Note ---
Date of Service May 30, 2019 Impression / Recommendations Impression 34 yo male with shcizophrenia, paranoid type with long history of auditory hallucinations of voices and paranoid delusions requiring multiple antipsychotic trials. He reports more breakthrough symptoms since Invega switched to Abilify, so is being switched back. Mild sedation from Klonopin, but otherwise tolerating med changes well. He has ongoing delusions, AH and anxiety, although he reports improvement in these symptoms since his admission. Pt initiated on metformin on 05/29 due to reports of significant weight gain with paliperidone in the past - will begin at 250mg with dinner and titrate as tolerated. Pt does admit to feeling safe in the hospital, but remains unable to contract for safety outside of the inpatient setting. He remains at risk for suicide if discharged, and ongoing inpatient treatment is recommended. He is now on a 305 involuntary inpatient commitment. (1) Paranoid schizophrenia: 05/23--The patient was admitted to the [facility] ([facility] mental health unit) on q15 min checks (behavioral with suicide precautions) for safety. The patient will participate in group, recreational, and milieu therapies and will be offered additional individual and family sessions as clinically appropriate. Case discussed with Dr. Wise. Agreed to offer Invega and Ativan prns with plan to use in combo with Kiesha Thompson over next month shantel Pop in system. Avoid typicals as prone to EPS if possible. 05/24--increase Invega to 6 mg, he'd prefer am dosing. Will add standing Klonopin to minimize breakthrough/Ativan prns. 05/25--continue current med plan for today, if remains sedated may dose Klonopin TID, no evidence of NMS, if fever check CPK and consult with infection control. 05/26--continue paliperidone 6 mg daily and 3 mg as needed, clonazepam 0.5 mg twice daily, and lorazepam 1 mg 3 times daily as needed. Patient remains afebrile and normotensive, but has had episodes of tachycardia. He reports resolution of cough and denies other URI symptoms. Tachycardia may be due to anxiety, as he reports feeling distraught about the command auditory hallucinations. --306 conversion hearing held today; --Schedule discharge planning meeting with [facility] staff and behavioral health case manager. Care coordinated with Dr. Wise; will also notify his therapist Delma Durant of hospitalization. 05/27--Continue current medication regimen - anticipate conversion to Invega Sustenna ~4 weeks after previous Abilify Maintena injection was given. Pt currently on a 305 inpatient commitment. --Dietary consult placed due to patient's focus on snack choices and reported concern surrounding significant weight increase when on Invega Sustenna in the past. --Discharge planning meeting scheduled for 06/02 with [facility] staff and CM --Coordinate outpatient appointments 05/28--Continue current medication regimen --Remainder of treatment plan as above 05/29 - Continue current medication regimen, patient reportedly having a more difficult day today - Pt agreeable with initiation of metformin in attempts to combat metabolic side effects of atypical antipsychotic medications. Will begin with 250mg each evening with dinner and titrate as tolerated (low dose as patient is often preoccupied with medication changes and side effects). - Meeting with [facility] staff and CM on 06/02 - will discuss discharge planning further Inventory Assets Strengths: compliant with outpatient care, intelligent Risk Factors Assessment Male: Yes : Yes Do You Have Access To A Gun?: No Substance Use Disorders: No Previous Attempt: No Previous Psychiatric Hospitalization: Yes Protective Factors Assessment Responsible for Young Children: No Employed: No Supportive Family: Yes Interval History Identifying Information CHAR BOLIVAR is a 34-year-old M who currently lives in [facility] home, has a history of schizophrenia, and was admitted on 05/23/19 22:20 on a 201 voluntary commitment for increase in paranoia and hallucinations for 2+ weeks. He is also on a 305 outpatient commitment, and 306 conversion held 05/27/2019. Chief Complaint "Um, not so good today. I'm in an abnormally bad mood." Review of Systems Notes Constitutional: denied Cardiovascular: denied Respiratory: denied Gastrointestinal: reports increased appetite Neurological: denied Psychiatric: denies symptoms other than stated above Total of at least 10 systems reviewed, pertinent positives as above and in HPI. Sleep Information Total Hours of Sleep: 5 Sleep Comments: pt on q-15 minute checks Meal Information Percent Meal Consumed - Breakfast: 100 Percent Meal Consumed - Lunch: 100 Percent Meal Consumed - Dinner: 100 Nutrition Comment: per meal record Subjective Subjective Patient was seen & assessed and interval progress reviewed with treatment team. Staff report the patient had a somewhat difficult evening, rating his mood a 5/10 and "apprehensive" last night. This morning he is reporting increased anxiety and even irritability, rating his mood a 2/10 during this morning's community meeting. Pt was seen today to assess progress since admission. Pt states that he is in "an abnormally bad mood" this morning, reporting anxiety, irritability, sadness "all in one." Pt states he is not sure of any particular stressors, but thinks "maybe it was something I ate, like the sausage I had this morning put me in a bad mood. Maybe I shouldn't eat meat anymore, could that be why?" Pt states that he may require help with filling out his menu, but that he was hoping to have more vegetarian options to choose from. We discussed his concern regarding weight gain, and trial of metformin was offered. Pt states he had been on the medication in the past, but felt "it made me really slow." It was unclear with further questioning of the patient if this response was truly related to the trial of metformin. Pt did admit, however, that he was interested in the medication. Risks, benefits, and potential side effects were discussed. When talking about his auditory hallucinations and anxiety, the patient stated "I feel like people's spirits can like drift into my body and like control my thoughts and speak to me." Pt states that these are "people from the past" - including his psychiatrist who "enters my brain and can like fix things with magic or something. Pt states this does not happen with individuals he is in conversation with in the present. Pt states "that's usually where the voices come from, it's like they are within me." Pt states that while he continues to experience these feelings on the unit, he feels they are "not able to control me as easily." Overall patient does admit to improvement in his condition, though he does continues to be preoccupied with psychiatric symptoms in the past. Pt denies SI, but states he does not feel safe outside of the hospital. Pt states, "I'm safe here because I know the doors are locked." When asked who he was worried about breaking in, he states "like thieves in the night or something." Pt denies any additional needs at this time. Physical Exam Psychiatric Orientation: alert, oriented x 3 and cooperative Apperance: appropriately dressed, appropriately groomed and appeared stated age Eye Contact: good eye contact Motor Behavior: no abnormal motor movements (observed while laying in/sitting on bed) Speech: normal rate/rhythm/volume of speech (anxious tone) Affect: + anxious affect (appearing more anxious and worried today, compared to yesterday) Mood: + anxious mood and + irritable mood ("I was feeling more angry today than normal, but I don't know why") Thought Process: goal directed thought process, clear/coherent thought process and thought association intact Thought Content: + preoccupation, + paranoid (reports concern for safety, "thieves in the night" coming to the [facility]) and + delusions (believes at times his body is being taken over by "spirits from the past"); no hopelessness Suicidal Thoughts: denies suicidal thoughts But reports not feeling safe outside of the hospital setting Homicidal Thoughts: denies homicidal thoughts Hallucinations: + auditory hallucinations; no visual hallucinations does admit to ongoing voices, but states they "don't feel like they control me as much now." Cognition: attention grossly intact and language grossly intact Insight: + fair insight Judgement: + fair judgement Vital Signs (Past 24 Hours) Last Vital Signs Temp 36.7 C 05/30/19 06:00 Pulse 85 05/30/19 06:39 Resp 18 05/30/19 06:00 BP 134/78 05/30/19 06:39 Pulse Ox 96 05/26/19 17:35 Results & Data ([facility]) Current Inpatient Medications Current Inpatient Medications: Current Inpatient Medications Acetaminophen (Tylenol) 650 mg PO Q4H PRN PRN Reason: Headache or Minor Fever Stop: 06/22/19 22:53 Al Hydrox/Mg Hydrox/Simethicone (Maalox) 30 ml PO Q4H PRN PRN Reason: GI Upset Stop: 06/22/19 22:53 Benztropine Mesylate (Cogentin) 0.5 mg PO TID@1000,1400,2200 SARA Stop: 06/23/19 13:59 Last Admin: 05/30/19 08:41 Dose: 0.5 mg Documented by: Bismuth Subsalicylate (Kaopectate) 15 ml PO PRN PRN PRN Reason: Loose Stool Stop: 06/22/19 22:53 Clonazepam (Klonopin) 0.5 mg PO BID SARA Stop: 06/24/19 13:14 Last Admin: 05/30/19 08:40 Dose: 0.5 mg Documented by: Hydroxyzine HCl (Vistaril) 50 mg PO HSZ PRN PRN Reason: Insomnia Stop: 06/22/19 22:53 Last Admin: 05/28/19 23:36 Dose: 50 mg Documented by: Lorazepam (Ativan) 1 mg PO TID PRN PRN Reason: Anxiety Stop: 06/22/19 22:54 Last Admin: 05/30/19 09:17 Dose: 1 mg Documented by: Magnesium Hydroxide (Milk Of Magnesia) 30 ml PO DAILY PRN PRN Reason: Constipation Stop: 06/22/19 22:53 Paliperidone (Invega) 3 mg PO Q6 PRN PRN Reason: Agitation Stop: 06/23/19 17:59 Last Admin: 05/28/19 20:00 Dose: 3 mg Documented by: Paliperidone (Invega) 6 mg PO QAM SARA Stop: 06/24/19 13:14 Last Admin: 05/30/19 08:40 Dose: 6 mg Documented by: Sodium Chloride ([place] Nasal) 1 - 2 sprays NA PRN PRN PRN Reason: Nasal Dryness/Congestion Stop: 06/22/19 22:53 Mental Health & Subst Abuse Tx Psychiatrist Name of Psychiatrist: Dr. Wise Psychiatrist's Date of Appointment with Psychiatrist: 06/11/19 Time of Appointment with Psychiatrist: 12:20pm Psychiatric Appointment Comment: [address] [place] [address], [address] Therapist Name of Therapist: [employer] - Delma Durant Therapist's Date of Therapist Appointment: 06/05/19 Time of Therapist Appointment: 1:00 p.m. Therapy Appointment Comment: Telephone appt Vice President Of Product Marketing Name of Vice President Of Product Marketing: Base Service Zeferino Barron Phone Number for Vice President Of Product Marketing: [phone] Post Discharge Appointments Primary Care Physician Name Of Family Doctor: Cristiana Lyons Primary Care Provider Appointment Comment: [address] [facility] Other #1: Name of Aftercare Appointment: [facility] Phone Number of Aftercare Appointment: [phone] Aftercare Appointment Comment: [address], [place] [address] Contact Information Discharge Discharge Address: [address] [place] [address]
[2019-05-30] MEDS: METFORMIN HCL 500 MG TAB PO SCH (17:15)
--- NOTE | 2019-05-31 07:06 | Psychiatric Progress Note ---
Date of Service May 31, 2019 Impression / Recommendations Impression 34 yo male with shcizophrenia, paranoid type with long history of auditory hallucinations of voices and paranoid delusions requiring multiple antipsychotic trials. He reports more breakthrough symptoms since Invega switched to Abilify, so is being switched back. Mild sedation from Klonopin, but otherwise tolerating med changes well. He has ongoing delusions, AH and anxiety, although he reports improvement in these symptoms since his admission. Pt initiated on metformin on 05/29 due to weight gain with paliperidone in the past. Pt does admit to feeling safe in the hospital, but remains unable to contract for safety outside of the inpatient setting. He remains at risk for suicide if discharged, and ongoing inpatient treatment is recommended. He is now on a 305 involuntary inpatient commitment. (1) Paranoid schizophrenia: 05/23--The patient was admitted to the [facility] ([facility] unit) on q15 min checks (behavioral with suicide precautions) for safety. The patient will participate in group, recreational, and milieu therapies and will be offered additional individual and family sessions as clinically appropriate. Case discussed with Dr. Wise. Agreed to offer Invega and Ativan prns with plan to use in combo with Abilify Maintena over next month while Abilify in system. Avoid typicals as prone to EPS if possible. 05/24--increase Invega to 6 mg, he'd prefer am dosing. Will add standing Klonopin to minimize breakthrough/Ativan prns. 05/25--continue current med plan for today, if remains sedated may dose Klonopin TID, no evidence of NMS, if fever check CPK and consult with infection control. 05/26--continue paliperidone 6 mg daily and 3 mg as needed, clonazepam 0.5 mg twice daily, and lorazepam 1 mg 3 times daily as needed. Patient remains afebrile and normotensive, but has had episodes of tachycardia. He reports resolution of cough and denies other URI symptoms. Tachycardia may be due to anxiety, as he reports feeling distraught about the command auditory hallucinations. --306 conversion hearing held today; --Schedule discharge planning meeting with [facility] staff and case investigator. Care coordinated with Dr. Wise; will also notify his therapist Delma Durant of hospitalization. 4/8--Continue current medication regimen - anticipate conversion to Invega Sustenna ~4 weeks after previous Abilify Maintena injection was given. Pt currently on a 305 inpatient commitment. --Dietary consult placed due to patient's focus on snack choices and reported concern surrounding significant weight increase when on Invega Sustenna in the past. --Discharge planning meeting scheduled for 06/02 with [facility] staff and CM --Coordinate outpatient appointments 05/28--Continue current medication regimen --Remainder of treatment plan as above 05/29 - Continue current medication regimen, patient reportedly having a more difficult day today - Pt agreeable with initiation of metformin in attempts to combat metabolic side effects of atypical antipsychotic medications. Will begin with 250mg each evening with dinner and titrate as tolerated (low dose as patient is often preoccupied with medication changes and side effects). - Meeting with [facility] staff and CM on 06/02 - will discuss discharge planning further 05/30--continue current medications, encourage patient to work on coping skills (reality testing, identifying healthy supports, examining what his daily structure will be after discharge as OP programming changes due to the pandemic). Inventory Assets Strengths: compliant with outpatient care, intelligent Risk Factors Assessment Male: Yes : Yes Do You Have Access To A Gun?: No Substance Use Disorders: No Previous Attempt: No Previous Psychiatric Hospitalization: Yes Protective Factors Assessment Responsible for Young Children: No Employed: No Supportive Family: Yes Interval History Identifying Information CHAR BOLIVAR is a 34-year-old M who currently lives in [facility], has a history of schizophrenia, and was admitted on 05/23/19 22:20 on a 201 voluntary commitment for increase in paranoia and hallucinations for 2+ weeks. He is also on a 305 outpatient commitment, and 306 conversion held 05/27/2019. Chief Complaint " Kind of a good day". Review of Systems Sleep Information Total Hours of Sleep: 5 Sleep Comments: up to the bathroom at 0400 and back to bed/sleep Meal Information Percent Meal Consumed - Breakfast: 100 Percent Meal Consumed - Lunch: 100 Percent Meal Consumed - Dinner: 100 Nutrition Comment: per meal record Subjective Subjective Patient was seen & assessed and interval progress reviewed with nursing and social work. Staff report he had a very difficult day yesterday, was distraught, angry, and depressed. He was easily overwhelmed, and refused some groups. He received prn of Lorazepam, and started metformin for weight gain. On my assessment, he states that he feels a bit better today, as his auditory hallucinations are "less aggressive." He states that they were very distressing the past few days, were threatening him, and telling him that he needed to give the money "that I don't have." He reports anxiety with significant worry about "telepathy, it's a bad experience to have, it is my mind inventing way to explain the voices." He is also feeling guilty and sad about his relationship with his parents, stating that he has been thinking about it and thinks that he should cut off contact with them, as they often make him feel badly about himself. He states they do not believe in mental illness and tell him that he is fine, does not need treatment, and just needs to study and get a job in software development. He says "I know I have a problem, and they tried to convince me I don't." He also talks about an interaction with his mother just prior to hospitalization, where she brought him into the ER but he was discharged home. When they were leaving, she was driving and got lost in the parking lot, yelled at a hospital employee who tried to help her, and was driving erratically. He told her he would just take a cab, and she said "but what about me?" He says that she frequently makes it about her and causes him to feel guilty, and feels he needs to focus on his own health, and wants to have better supports, and make friends, although feels he has none currently. He was participating in [employer] at one point, but it is now on hold due to the pandemic, and he thinks the increased isolation has exacerbated his symptoms. He is able to visualize some goals for the future, including a job that is minimally stressful, such as pushing carts at the grocery store, and states he discussed this with his case investigator and even started to apply for a position as a personal lines advisor at [employer], but did not follow through. States he gets easily overwhelmed by anxiety. Several times he references a romantic relationship, but says that he does not think he could ever handle a relationship as it is too much stress. Physical Exam Psychiatric Orientation: alert and cooperative Apperance: appropriately dressed, appropriately groomed and appeared stated age Short hair, unshaven. Good hygiene. Eye Contact: + fair eye contact Motor Behavior: steady gait and station and no abnormal motor movements Speech: normal rate/rhythm/volume of speech Affect: + depressed affect; + mood not congruent with affect "Kind of a good day." Thought Process: goal directed thought process Thought Content: + hopelessness, + loneliness, + guilt and + self deprecation Suicidal Thoughts: denies suicidal thoughts Homicidal Thoughts: denies homicidal thoughts Hallucinations: + auditory hallucinations Cognition: recent memory grossly intact, attention grossly intact and language grossly intact Insight: + fair insight Judgement: + fair judgement Vital Signs (Past 24 Hours) Last Vital Signs Temp 36.5 C 05/31/19 06:31 Pulse 90 05/31/19 06:32 Resp 18 05/31/19 06:31 BP 114/78 05/31/19 06:32 Pulse Ox 96 05/26/19 17:35 Results & Data ([facility]) Current Inpatient Medications Current Inpatient Medications: Current Inpatient Medications Acetaminophen (Tylenol) 650 mg PO Q4H PRN PRN Reason: Headache or Minor Fever Stop: 06/22/19 22:53 Al Hydrox/Mg Hydrox/Simethicone (Maalox) 30 ml PO Q4H PRN PRN Reason: GI Upset Stop: 06/22/19 22:53 Benztropine Mesylate (Cogentin) 0.5 mg PO TID@1000,1400,2200 [facility] Stop: 06/23/19 13:59 Last Admin: 05/30/19 20:53 Dose: 0.5 mg Documented by: Bismuth Subsalicylate (Kaopectate) 15 ml PO PRN PRN PRN Reason: Loose Stool Stop: 06/22/19 22:53 Clonazepam (Klonopin) 0.5 mg PO BID SARA Stop: 06/24/19 13:14 Last Admin: 05/30/19 20:53 Dose: 0.5 mg Documented by: Hydroxyzine HCl (Vistaril) 50 mg PO HSZ PRN PRN Reason: Insomnia Stop: 06/22/19 22:53 Last Admin: 05/28/19 23:36 Dose: 50 mg Documented by: Lorazepam (Ativan) 1 mg PO TID PRN PRN Reason: Anxiety Stop: 06/22/19 22:54 Last Admin: 05/30/19 09:17 Dose: 1 mg Documented by: Magnesium Hydroxide (Milk Of Magnesia) 30 ml PO DAILY PRN PRN Reason: Constipation Stop: 06/22/19 22:53 Metformin HCl (Glucophage) 250 mg PO DAILYBD SARA Stop: 06/29/19 17:14 Last Admin: 05/30/19 17:15 Dose: 250 mg Documented by: Paliperidone (Invega) 3 mg PO Q6 PRN PRN Reason: Agitation Stop: 06/23/19 17:59 Last Admin: 05/28/19 20:00 Dose: 3 mg Documented by: Paliperidone (Invega) 6 mg PO QAM SARA Stop: 06/24/19 13:14 Last Admin: 05/30/19 08:40 Dose: 6 mg Documented by: Sodium Chloride ([place] Nasal) 1 - 2 sprays NA PRN PRN PRN Reason: Nasal Dryness/Congestion Stop: 06/22/19 22:53 Mental Health & Subst Abuse Tx Psychiatrist Name of Psychiatrist: Dr. Wise Psychiatrist's Date of Appointment with Psychiatrist: 06/11/19 Time of Appointment with Psychiatrist: 12:20pm Psychiatric Appointment Comment: [address] [facility] [address] [facility], [address] Therapist Name of Therapist: Elli Durant Therapist's Date of Therapist Appointment: 06/05/19 Time of Therapist Appointment: 1:00 p.m. Therapy Appointment Comment: Telephone appt Group Home Worker Name of Group Home Worker: [facility] Service Zeferino Barron Phone Number for Group Home Worker: [phone] Post Discharge Appointments Primary Care Physician Name Of Family Doctor: Cristiana Lyons Primary Care Provider Appointment Comment: [address] [facility] Contact Information Discharge Discharge Address: [address] [place] [address], [place] [address]
[2019-05-31] MEDS: BENZTROPINE MESYLATE 0.5 MG TAB PO SCH ×3 (08:16→21:27)
[2019-05-31] MEDS: clonazePAM 0.5 MG TAB PO SCH ×2 (08:16→21:28)
[2019-05-31] MEDS: PALIPERIDONE 3 MG TABCR PO SCH (08:17)
[2019-05-31] MEDS: METFORMIN HCL 500 MG TAB PO SCH (17:26)
--- NOTE | 2019-06-01 06:40 | Psychiatric Progress Note ---
Date of Service June 01, 2019 Impression / Recommendations Impression 34 y/o male with shcizophrenia, paranoid type with long history of auditory hallucinations of voices and paranoid delusions requiring multiple antipsychotic trials. He reports more breakthrough symptoms since Invega switched to Abilify, so is being switched back. Mild sedation from Klonopin, but otherwise tolerating med changes well. He has ongoing delusions, AH and anxiety, although he reports improvement in these symptoms since his admission. Pt initiated on metformin on 05/29 due to weight gain with paliperidone in the past. Pt does admit to feeling safe in the hospital, but remains unable to contract for safety outside of the inpatient setting. He remains at risk for suicide if discharged, and ongoing inpatient treatment is recommended. He is now on a 305 involuntary inpatient commitment. (1) Paranoid schizophrenia: 05/23--The patient was admitted to the [facility] ([facility] mental [facility] unit) on q15 min checks (behavioral with suicide precautions) for safety. The patient will participate in group, recreational, and milieu therapies and will be offered additional individual and family sessions as clinically appropriate. Case discussed with Dr. Wise. Agreed to offer Invega and Ativan prns with plan to use in combo with Abilify Maintena over next month while Abilify in system. Avoid typicals as prone to EPS if possible. 05/24--increase Invega to 6 mg, he'd prefer am dosing. Will add standing Klonopin to minimize breakthrough/Ativan prns. 05/25--continue current med plan for today, if remains sedated may dose Klonopin TID, no evidence of NMS, if fever check CPK and consult with infection control. 05/26--continue paliperidone 6 mg daily and 3 mg as needed, clonazepam 0.5 mg twice daily, and lorazepam 1 mg 3 times daily as needed. Patient remains afebrile and normotensive, but has had episodes of tachycardia. He reports resolution of cough and denies other URI symptoms. Tachycardia may be due to anxiety, as he reports feeling distraught about the command auditory hallucinations. --306 conversion hearing held today; --Schedule discharge planning meeting with CRR staff and patient case coordinator. Care coordinated with Dr. Wise; will also notify his therapist Delma Durant of hospitalization. 05/27--Continue current medication regimen - anticipate conversion to Invega Sustenna ~4 weeks after previous Abilify Maintena injection was given. Pt currently on a 305 inpatient commitment. --Dietary consult placed due to patient's focus on snack choices and reported concern surrounding significant weight increase when on Invega Sustenna in the past. --Discharge planning meeting scheduled for 06/02 with CRR staff and CM --Coordinate outpatient appointments 05/28--Continue current medication regimen --Remainder of treatment plan as above 05/29 - Continue current medication regimen, patient reportedly having a more difficult day today - Pt agreeable with initiation of metformin in attempts to combat metabolic side effects of atypical antipsychotic medications. Will begin with 250mg each evening with dinner and titrate as tolerated (low dose as patient is often preoccupied with medication changes and side effects). - Meeting with CRR staff and CM on 06/02 - will discuss discharge planning further 05/30-05/31 --continue current medications, encourage patient to work on coping skills (reality testing, identifying healthy supports, examining what his daily structure will be after discharge as OP programming changes due to the pandemic). Inventory Assets Strengths: compliant with outpatient care, intelligent Risk Factors Assessment Male: Yes : Yes Do You Have Access To A Gun?: No Substance Use Disorders: No Previous Attempt: No Previous Psychiatric Hospitalization: Yes Protective Factors Assessment Responsible for Young Children: No Employed: No Supportive Family: Yes Interval History Identifying Information CHAR BOLIVAR is a 34-year-old M who currently lives in [facility], has a history of schizophrenia, and was admitted on 05/23/19 22:20 on a 201 voluntary commitment for increase in paranoia and hallucinations for 2+ weeks. He is also on a 305 outpatient commitment, and 306 conversion held 05/27/2019. Chief Complaint " Not great in some ways". Review of Systems Sleep Information Total Hours of Sleep: 4.5 Sleep Comments: slept 2 hours on the evening shift then was awake. he was offered and accepted his first prn hs vistaril for sleep aid at 0019 and his second at 0137. he finally fell back to sleep at 0300 rounds. he was awake at 0500 but back to sleep at 0530. he was awakened for am vital signs and stated he was still tired and was going to go back to sleep. Meal Information Percent Meal Consumed - Breakfast: 95 Percent Meal Consumed - Lunch: 100 Percent Meal Consumed - Dinner: 100 Nutrition Comment: per meal record Subjective Subjective Patient was seen & assessed and interval progress reviewed with nursing and social work. Staff report he had multiple one-to-one's with staff yesterday at his request, wanting to discuss his thoughts about cutting off contact with his parents. He stated fearfulness that they would stop paying for his rent if he did this. He stated they are very controlling, and that his mother tries to control his diet and medications, and is focused on vitamins being the care for everything. He gave an example of when they go grocery shopping, his mother will only allow him to buy vegetables and will not allow him to get meat or dairy items, and he is afraid to put food that he wants in the cart. Other options for community supports were explored. He stated a goal to make friends, and reflected that his parents do not have any friends and have awkward social interactions, and he also struggles with the ability to emotionally connect with others. He related that he feels worse after talking to his parents, and that they use guilt to control him. On my assessment today, he states that he is disturbed by some "lustful" thoughts that he has been having about his mother, which started in December, are intermittent, often when he is falling asleep or dreaming. They have been more pronounced over the past couple of months, are ego-dystonic, and disturbing to him. He denies any desire to act on these thoughts, and discussed intrusive thoughts and provided reassurance. Discussed methods for distraction and dismissal of unwanted thoughts. He also reports "a weird delusion that girls have the power to possess people," stating he feels like "girls could possess my body, take over my thoughts." He denies that he believes this is happening to him, but has wondered if it could happen, and wondered if it had something to do with how people form relationships. He has a lot of questions about how people get a boyfriend or girlfriend, stating he has never understood this. He also reports that a skin rash that was previously treated with fluconazole and resolved has now returned, and requested fluconazole be reordered. Physical Exam Psychiatric Orientation: alert and cooperative Apperance: appropriately dressed, appropriately groomed and appeared stated age Eye Contact: good eye contact Motor Behavior: steady gait and station and no abnormal motor movements Speech: normal rate/rhythm/volume of speech Affect: + depressed affect and + anxious affect Mood: + depressed mood and + anxious mood Thought Process: goal directed thought process Thought Content: + cognitive distortions, + thought insertion, + hopelessness, + worthlessness, + loneliness and + guilt Suicidal Thoughts: denies suicidal thoughts Homicidal Thoughts: denies homicidal thoughts Hallucinations: + auditory hallucinations Cognition: recent memory grossly intact, attention grossly intact and language grossly intact Estimated Intelligence: consistent with education level Insight: + fair insight Judgement: + fair judgement Vital Signs (Past 24 Hours) Last Vital Signs Temp 36.5 C 06/01/19 06:34 Pulse 76 06/01/19 06:34 Resp 18 06/01/19 06:34 BP 118/79 06/01/19 06:34 Pulse Ox 96 05/26/19 17:35 Results & Data ([facility]) Current Inpatient Medications Current Inpatient Medications: Current Inpatient Medications Acetaminophen (Tylenol) 650 mg PO Q4H PRN PRN Reason: Headache or Minor Fever Stop: 06/22/19 22:53 Al Hydrox/Mg Hydrox/Simethicone (Maalox) 30 ml PO Q4H PRN PRN Reason: GI Upset Stop: 06/22/19 22:53 Benztropine Mesylate (Cogentin) 0.5 mg PO TID@1000,1400,2200 [facility] Stop: 06/23/19 13:59 Last Admin: 05/31/19 21:27 Dose: 0.5 mg Documented by: Bismuth Subsalicylate (Kaopectate) 15 ml PO PRN PRN PRN Reason: Loose Stool Stop: 06/22/19 22:53 Clonazepam (Klonopin) 0.5 mg PO BID [facility] Stop: 06/24/19 13:14 Last Admin: 05/31/19 21:28 Dose: 0.5 mg Documented by: Hydroxyzine HCl (Vistaril) 50 mg PO HSZ PRN PRN Reason: Insomnia Stop: 06/22/19 22:53 Last Admin: 06/01/19 01:37 Dose: 50 mg Documented by: Lorazepam (Ativan) 1 mg PO TID PRN PRN Reason: Anxiety Stop: 06/22/19 22:54 Last Admin: 05/30/19 09:17 Dose: 1 mg Documented by: Magnesium Hydroxide (Milk Of Magnesia) 30 ml PO DAILY PRN PRN Reason: Constipation Stop: 06/22/19 22:53 Metformin HCl (Glucophage) 250 mg PO DAILYBD [facility] Stop: 06/29/19 17:14 Last Admin: 05/31/19 17:26 Dose: 250 mg Documented by: Paliperidone (Invega) 3 mg PO Q6 PRN PRN Reason: Agitation Stop: 06/23/19 17:59 Last Admin: 05/28/19 20:00 Dose: 3 mg Documented by: Paliperidone (Invega) 6 mg PO QAM [facility] Stop: 06/24/19 13:14 Last Admin: 05/31/19 08:17 Dose: 6 mg Documented by: Sodium Chloride ([place] Nasal) 1 - 2 sprays NA PRN PRN PRN Reason: Nasal Dryness/Congestion Stop: 06/22/19 22:53 Mental Health & Subst Abuse Tx Psychiatrist Name of Psychiatrist: Dr. Wise Psychiatrist's Date of Appointment with Psychiatrist: 06/11/19 Time of Appointment with Psychiatrist: 12:20pm Psychiatric Appointment Comment: [facility] [address] [facility], [address], [place] Therapist Name of Therapist: Elli Durant Therapist's Date of Therapist Appointment: 06/05/19 Time of Therapist Appointment: 1:00 p.m. Therapy Appointment Comment: Telephone appt Decommissioning Well Site Manager Name of Decommissioning Well Site Manager: [facility] Service Zeferino Barron Phone Number for Decommissioning Well Site Manager: [phone] Post Discharge Appointments Primary Care Physician Name Of Family Doctor: Cristiana Lyons Primary Care Provider Appointment Comment: [address] [facility] Contact Information Discharge Discharge Address: [address] [place] [address], [place] [address]
[2019-06-01] MEDS: BENZTROPINE MESYLATE 0.5 MG TAB PO SCH ×3 (07:46→21:21)
[2019-06-01] MEDS: PALIPERIDONE 3 MG TABCR PO SCH (07:47)
[2019-06-01] MEDS: clonazePAM 0.5 MG TAB PO SCH ×2 (07:47→21:21)
[2019-06-01] MEDS: METFORMIN HCL 500 MG TAB PO SCH (17:15)
--- NOTE | 2019-06-02 07:21 | Psychiatric Progress Note ---
Date of Service June 02, 2019 Impression / Recommendations Impression 34 y/o male with schizophrenia, paranoid type with long history of auditory hallucinations of voices and paranoid delusions requiring multiple antipsychotic trials. He reports more breakthrough symptoms since Invega switched to Abilify, so oral paliperidone was started on admission. Benzodiazepines also being used due to high levels of anxiety and intrusive thoughts. Mood has improved, continues to struggle with delusions, intrusive thoughts, and anxiety, although he reports improvement in these symptoms since his admission. Pt initiated on metformin on 05/29 due to weight gain with paliperidone in the past. Pt does admit to feeling safe in the hospital, but remains unable to contract for safety outside of the inpatient setting. He remains at risk for suicide if discharged, and ongoing inpatient treatment is recommended. He is now on a 305 involuntary inpatient commitment. (1) Paranoid schizophrenia: 05/23--The patient was admitted to the [facility] ([facility]) on q15 min checks (behavioral with suicide precautions) for safety. The patient will participate in group, recreational, and milieu therapies and will be offered additional individual and family sessions as clinically appropriate. Case discussed with Dr. Wise. Agreed to offer Invega and Ativan prns with plan to use in combo with Kiesha Thompson over next month w radha Pop in system. Avoid typicals as prone to EPS if possible. 05/24--increase Invega to 6 mg, he'd prefer am dosing. Will add standing Klonopin to minimize breakthrough/Ativan prns. 05/25--continue current med plan for today, if remains sedated may dose Klonopin TID, no evidence of NMS, if fever check CPK and consult with infection control. 05/26--continue paliperidone 6 mg daily and 3 mg as needed, clonazepam 0.5 mg twice daily, and lorazepam 1 mg 3 times daily as needed. Patient remains afebrile and normotensive, but has had episodes of tachycardia. He reports resolution of cough and denies other URI symptoms. Tachycardia may be due to anxiety, as he reports feeling distraught about the command auditory hallucinations. --306 conversion hearing held today; --Schedule discharge planning meeting with CRR staff and caser shoe parts. Care coordinated with Dr. Wise; will also notify his therapist Delma Durant of hospitalization. 05/27--Continue current medication regimen - anticipate conversion to Invega Sustenna ~4 weeks after previous Abilify Maintena injection was given. Pt currently on a 305 inpatient commitment. --Dietary consult placed due to patient's focus on snack choices and reported concern surrounding significant weight increase when on Invega Sustenna in the past. --Discharge planning meeting scheduled for 06/02 with CR[facility] staff and CM --Coordinate outpatient appointments 05/28--Continue current medication regimen --Remainder of treatment plan as above 05/29 - Continue current medication regimen, patient reportedly having a more difficult day today - Pt agreeable with initiation of metformin in attempts to combat metabolic side effects of atypical antipsychotic medications. Will begin with 250mg each evening with dinner and titrate as tolerated (low dose as patient is often preoccupied with medication changes and side effects). - Meeting with [facility] staff and CM on 06/02 - will discuss discharge planning further 05/30-06/01 --continue current medications, encourage patient to work on coping skills (reality testing, identifying healthy supports, examining what his daily structure will be after discharge as OP programming changes due to the pandemic ). --Discharge planning meeting with his caser shoe parts and intermediate staff 06/03/2019 Inventory Assets Strengths: compliant with outpatient care, intelligent Risk Factors Assessment Male: Yes : Yes Do You Have Access To A Gun?: No Substance Use Disorders: No Previous Attempt: No Previous Psychiatric Hospitalization: Yes Protective Factors Assessment Responsible for Young Children: No Employed: No Supportive Family: Yes Interval History Identifying Information CHAR BOLIVAR is a 34-year-old M who currently lives in [facility], has a history of schizophrenia, and was admitted on 05/23/19 22:20 on a 201 voluntary commitment for increase in paranoia and hallucinations for 2+ weeks. He is also on a 305 outpatient commitment, and 306 conversion held 2019. Chief Complaint " Doing okay, better today". Review of Systems Sleep Information Total Hours of Sleep: 6.25 Sleep Comments: awake to go to the bathroom then unable to fall back to sleep. wanted to have sleep med but it was after 0315 then. prn meds reviewed and he opted to read for awhile. he was able to fall back to sleep by 0400 rounds. Meal Information Percent Meal Consumed - Breakfast: 100 Percent Meal Consumed - Lunch: 100 Percent Meal Consumed - Dinner: 100 Nutrition Comment: per meal record Subjective Subjective Patient was seen & assessed and interval progress reviewed with treatment team. Staff report he is going to groups and remains distraught, anxious, and delusional. He continues to report delusions of persecution and AH of voices. On my assessment, he states that mood is a bit better today, rates it an 8/10, and denies SI. He continues to report intrusive thoughts and paranoia/delusions, but is trying to distract himself. He denies suicidal thoughts and feels safe here. He is feeling more hopeful about the future, but still very concerned about discharge, is unsure how he will handle being stuck in the [facility], and is worried about having to do his outpatient psychiatry appointments over the phone, stating that he feels uncomfortable talking over the phone as he thinks people might be recording it, and would prefer to see him [id number]. Although he states that today, so far, has been a better day, he is worried about leaving prematurely, stating he wants to ensure that he stable before discharge. Physical Exam Psychiatric Orientation: alert, oriented x 3 and cooperative Apperance: appropriately dressed, appropriately groomed and appeared stated age Eye Contact: + fair eye contact Motor Behavior: steady gait and station and no abnormal motor movements Speech: normal rate/rhythm/volume of speech Affect: + anxious affect "Better." Thought Process: goal directed thought process Thought Content: + paranoid and + delusions Intrusive thoughts Suicidal Thoughts: denies suicidal thoughts Homicidal Thoughts: denies homicidal thoughts Hallucinations: no auditory hallucinations and no visual hallucinations Cognition: recent memory grossly intact, attention grossly intact and language grossly intact Estimated Intelligence: consistent with education level Insight: + fair insight Judgement: + fair judgement Vital Signs (Past 24 Hours) Last Vital Signs Temp 36.5 C 06/02/19 06:52 Pulse 91 H 06/02/19 06:53 Resp 18 06/02/19 06:52 BP 122/72 06/02/19 06:53 Pulse Ox 96 05/26/19 17:35 Results & Data ([facility]) Current Inpatient Medications Current Inpatient Medications: Current Inpatient Medications Acetaminophen (Tylenol) 650 mg PO Q4H PRN PRN Reason: Headache or Minor Fever Stop: 06/22/19 22:53 Al Hydrox/Mg Hydrox/Simethicone (Maalox) 30 ml PO Q4H PRN PRN Reason: GI Upset Stop: 06/22/19 22:53 Benztropine Mesylate (Cogentin) 0.5 mg PO TID@1000,1400,2200 [facility] Stop: 06/23/19 13:59 Last Admin: 06/01/19 21:21 Dose: 0.5 mg Documented by: Bismuth Subsalicylate (Kaopectate) 15 ml PO PRN PRN PRN Reason: Loose Stool Stop: 06/22/19 22:53 Clonazepam (Klonopin) 0.5 mg PO BID [facility] Stop: 06/24/19 13:14 Last Admin: 06/01/19 21:21 Dose: 0.5 mg Documented by: Fluconazole (Diflucan) 200 mg PO Mo@0900 [facility] Stop: 07/01/19 08:59 Hydroxyzine HCl (Vistaril) 50 mg PO HSZ PRN PRN Reason: Insomnia Stop: 06/22/19 22:53 Last Admin: 06/01/19 01:37 Dose: 50 mg Documented by: Lorazepam (Ativan) 1 mg PO TID PRN PRN Reason: Anxiety Stop: 06/22/19 22:54 Last Admin: 05/30/19 09:17 Dose: 1 mg Documented by: Magnesium Hydroxide (Milk Of Magnesia) 30 ml PO DAILY PRN PRN Reason: Constipation Stop: 06/22/19 22:53 Metformin HCl (Glucophage) 250 mg PO DAILYBD [facility] Stop: 06/29/19 17:14 Last Admin: 06/01/19 17:15 Dose: 250 mg Documented by: Paliperidone (Invega) 3 mg PO Q6 PRN PRN Reason: Agitation Stop: 06/23/19 17:59 Last Admin: 05/28/19 20:00 Dose: 3 mg Documented by: Paliperidone (Invega) 6 mg PO QAM [facility] Stop: 06/24/19 13:14 Last Admin: 06/01/19 07:47 Dose: 6 mg Documented by: Sodium Chloride ([place] Nasal) 1 - 2 sprays NA PRN PRN PRN Reason: Nasal Dryness/Congestion Stop: 06/22/19 22:53 Mental Health & Subst Abuse Tx Psychiatrist Name of Psychiatrist: Dr. Wise Psychiatrist's Date of Appointment with Psychiatrist: 06/11/19 Time of Appointment with Psychiatrist: 12:20pm Psychiatric Appointment Comment: [address] [facility], [address], [place] Therapist Name of Therapist: [employer] - Delma Durant Therapist's Date of Therapist Appointment: 06/05/19 Time of Therapist Appointment: 1:00 p.m. Therapy Appointment Comment: Telephone appt Radiotelegraphist Name of Radiotelegraphist: [facility] Service [facility] Phone Number for Radiotelegraphist: [phone] Post Discharge Appointments Primary Care Physician Name Of Family Doctor: Cristiana Lyons Primary Care Provider Appointment Comment: [address] [facility] Contact Information Discharge Discharge Address: [address] [place] [address]
[2019-06-02] MEDS: BENZTROPINE MESYLATE 0.5 MG TAB PO SCH ×3 (07:54→20:52)
[2019-06-02] MEDS: clonazePAM 0.5 MG TAB PO SCH ×2 (07:54→20:51)
[2019-06-02] MEDS: PALIPERIDONE 3 MG TABCR PO SCH (07:55)
[2019-06-02] MEDS: FLUCONAZOLE 100 MG TAB PO SCH (07:55)
[2019-06-02] MEDS: METFORMIN HCL 500 MG TAB PO SCH (17:06)
[2019-06-02] MEDS: LORazepam 1 MG TAB PO PRN (17:13)
[2019-06-03] MEDS: BENZTROPINE MESYLATE 0.5 MG TAB PO SCH ×3 (08:08→20:16)
[2019-06-03] MEDS: PALIPERIDONE 3 MG TABCR PO SCH (08:08)
[2019-06-03] MEDS: clonazePAM 0.5 MG TAB PO SCH ×2 (08:08→20:16)
--- NOTE | 2019-06-03 08:36 | Psychiatric Progress Note ---
Date of Service June 03, 2019 Impression / Recommendations Impression 34 y/o male with schizophrenia, paranoid type with long history of auditory hallucinations of voices and paranoid delusions requiring multiple antipsychotic trials. Pt verbalized willingness for admission, and was converted to a 305 due to his ongoing involuntary outpatient commitment. He reports more breakthrough symptoms since Invega switched to Abilify, so oral paliperidone was started on admission. Benzodiazepines also being used due to high levels of anxiety and intrusive thoughts. Mood has improved, continues to struggle with delusions, intrusive thoughts, and anxiety. Although he reports improvement in these symptoms since his admission, he continues to require prn medications to target severe anxiety. Pt initiated on metformin on 05/29 due to weight gain with paliperidone in the past. Pt does admit to feeling safe in the hospital, but is hoping to have several consistently improved days prior to feeling ready for discharge. Pt did admit to feeling his meeting with his java development manager and the [facility] staff went well this morning, and he is feeling more comfortable with returning to the [facility] at time of discharge. He remains at risk for significant decompensation and therefore at increased risk of suicide if he is discharged prematurely. At this time, ongoing inpatient treatment is recommended. (1) Paranoid schizophrenia: 05/23--The patient was admitted to the [facility] ([facility] unit) on q15 min checks (behavioral with suicide precautions) for safety. The patient will participate in group, recreational, and milieu therapies and will be offered additional individual and family sessions as clinically appropriate. Case discussed with Dr. Wise. Agreed to offer Invega and Ativan prns with plan to use in combo with Abilify Maintena over next month while Abilify in system. Avoid typicals as prone to EPS if possible. 05/24--increase Invega to 6 mg, he'd prefer am dosing. Will add standing Klonopin to minimize breakthrough/Ativan prns. 05/25--continue current med plan for today, if remains sedated may dose Klonopin TID, no evidence of NMS, if fever check CPK and consult with infection control. 05/26--continue paliperidone 6 mg daily and 3 mg as needed, clonazepam 0.5 mg twice daily, and lorazepam 1 mg 3 times daily as needed. Patient remains afebrile and normotensive, but has had episodes of tachycardia. He reports resolution of cough and denies other URI symptoms. Tachycardia may be due to anxiety, as he reports feeling distraught about the command auditory hallucinations. --306 conversion hearing held today; --Schedule discharge planning meeting with [facility] staff and java development manager. Care coordinated with Dr. Wise; will also notify his therapist Delma Durant of hospitalization. 05/27--Continue current medication regimen - anticipate conversion to Invega Sustenna ~4 weeks after previous Abilify Maintena injection was given. Pt currently on a 305 inpatient commitment. --Dietary consult placed due to patient's focus on snack choices and reported concern surrounding significant weight increase when on Invega Sustenna in the past. --Discharge planning meeting scheduled for 06/02 with [facility] staff and CM --Coordinate outpatient appointments 05/28--Continue current medication regimen --Remainder of treatment plan as above 05/29 - Continue current medication regimen, patient reportedly having a more difficult day today - Pt agreeable with initiation of metformin in attempts to combat metabolic side effects of atypical antipsychotic medications. Will begin with 250mg each evening with dinner and titrate as tolerated (low dose as patient is often preoccupied with medication changes and side effects). - Meeting with [facility] staff and CM on 06/02 - will discuss discharge planning further 05/30-06/01 --continue current medications, encourage patient to work on coping skills (reality testing, identifying healthy supports, examining what his daily structure will be after discharge as OP programming changes due to the pandemic). --Discharge planning meeting with his java development manager and [facility] staff 06/03/201906/02 - Continue psychiatric medication regimen as above - pt was agreeable with i ncreasing metformin to 500mg with dinner starting this evening. - Positive meeting took place today with the patient, his java development manager, and [facility] representation - Pt reporting desire to have "like a couple good days in a row" before feeling comfortable with discharge home Inventory Assets Strengths: compliant with outpatient care, intelligent Risk Factors Assessment Male: Yes : Yes Do You Have Access To A Gun?: No Substance Use Disorders: No Previous Attempt: No Previous Psychiatric Hospitalization: Yes Protective Factors Assessment Responsible for Young Children: No Employed: No Supportive Family: Yes Interval History Identifying Information CHAR BOLIVAR is a 34-year-old M who currently lives in [facility], has a history of schizophrenia, and was admitted on 05/23/19 22:20 on a 201 voluntary commitment for increase in paranoia and hallucinations for 2+ weeks. He is also on a 305 outpatient commitment, and 306 conversion held 05/27/2019. Chief Complaint "Um, well. I had a good meeting this morning. I was pretty proud of myself." Review of Systems Notes Constitutional: denied Cardiovascular: denied Respiratory: denied Gastrointestinal: denied Neurological: denied Psychiatric: denies symptoms other than stated above Total of at least 10 systems reviewed, pertinent positives as above and in HPI. Sleep Information Total Hours of Sleep: 4.5 Sleep Comments: pt appeared to have difficulties staying asleep. pt appeared to be awake @ 0230 for about an hour. pt appeared to fall back asleep after staff's encouragement for pt to laying down with the light off. pt on q-15 minute checks Meal Information Percent Meal Consumed - Breakfast: 100 Percent Meal Consumed - Lunch: 100 Percent Meal Consumed - Dinner: 100 Nutrition Comment: per meal record Subjective Subjective Patient was seen & assessed and interval progress reviewed with nursing and social work. Staff report the patient has continued to experience intermittent anxiety. He did require some prn lorazepam last evening after experiencing a flashback, per staff. Pt did attend community meeting last evening and rated his mood a 7/10 and "thoughtful". Meeting scheduled for this morning with patient's java development manager and [facility] representation to discuss discharge planning. Pt was seen today to assess progress since admission. Pt states that he is feeling a bit better today, admitting that his meeting this morning went well. Pt states he had completed a list of topic he wanted to discuss and felt as though everyone involved in the phone call was attentive to his concerns. Pt did indicate that he was feeling a bit uneasy today, since "I asked them to kind of limit my contact with my parents." Pt explained to this provider that "the longer I go between talking to my parents, the more confident I feel in my progress. Sometimes they just tear me down, or treat me like I'm still in high school." We discussed that while his parent's support likely comes from a place of love, that sometimes we do need to evaluate the support we are receiving to ensure it is positive and beneficial. Pt states that he is still calling his parents, but that he feels better about being the one to decide if he feels up to talking. Pt continues to report perceived benefits with his current medication regimen. He does ask about long-term medication plans. We discussed that it is still too soon to receive an injectable medication, but that either Abilify Maintena or Invega Sustenna could be considered - likely a decision to be made by his outpatient psychiatrist after discharge. Pt states, "the benefits I get from the Sustenna makes it worth the side effects - I think anyway." After some discussion, patient was agreeable with trial of increased dose of metformin, in attempts to counteract known side effects of weight gain with Invega. Risks and benefits reviewed, patient agreed to trial while in the hospital to ensure he tolerates the adjustment. Pt denies SI today. He does admit to occasional episodes of "overlapping personalities", where he believes his outpatient psychiatrist or parents spirits can "enter my body", occasionally through the phone connection. Pt states "saying it out loud to you, I know it sounds crazy, but it just feels so real. It's comforting, sometimes I wonder if I created it because of feeling so much loneliness. I don't know." Pt denies experiencing this sensation so far today. When asked about discharge plans, the patient reports desire to "have a couple good days in a row before I go, so I know that it's likely to stay good." He does admit that today feels "like a good day so far." Physical Exam Psychiatric Orientation: alert, oriented x 3 and cooperative (and pleasant) Apperance: appropriately dressed (casually, wearing khakis and a polo), appropriately groomed and appeared stated age Eye Contact: good eye contact Motor Behavior: steady gait and station and no abnormal motor movements Speech: normal rate/rhythm/volume of speech Affect: + anxious affect and + constricted affect Mood: + anxious mood ("Still a little worried") Thought Process: goal directed thought process, clear/coherent thought process and thought association intact Thought Content: + delusions (continues to describe "overlapping personalities"); no hopelessness Pt continues to report experiences where it feels as though the spirits of others can inhabit his body, "overlapping personalities". States this has not yet happened today. Suicidal Thoughts: denies suicidal thoughts Homicidal Thoughts: denies homicidal thoughts Hallucinations: no auditory hallucinations (denies today) and no visual hallucinations Cognition: attention grossly intact and language grossly intact Insight: + fair insight Judgement: + fair judgement Vital Signs (Past 24 Hours) Last Vital Signs Temp 36.6 C 06/03/19 06:52 Pulse 89 06/03/19 06:53 Resp 18 06/03/19 06:52 BP 123/68 06/03/19 06:53 Pulse Ox 96 05/26/19 17:35 Results & Data ([facility]) Current Inpatient Medications Current Inpatient Medications: Current Inpatient Medications Acetaminophen (Tylenol) 650 mg PO Q4H PRN PRN Reason: Headache or Minor Fever Stop: 06/22/19 22:53 Al Hydrox/Mg Hydrox/Simethicone (Maalox) 30 ml PO Q4H PRN PRN Reason: GI Upset Stop: 06/22/19 22:53 Benztropine Mesylate (Cogentin) 0.5 mg PO TID@1000,1400,2200 [facility] Stop: 06/23/19 13:59 Last Admin: 06/03/19 08:08 Dose: 0.5 mg Documented by: Bismuth Subsalicylate (Kaopectate) 15 ml PO PRN PRN PRN Reason: Loose Stool Stop: 06/22/19 22:53 Clonazepam (Klonopin) 0.5 mg PO BID [facility] Stop: 06/24/19 13:14 Last Admin: 06/03/19 08:08 Dose: 0.5 mg Documented by: Fluconazole (Diflucan) 200 mg PO Mo@0900 [facility] Stop: 07/01/19 08:59 Last Admin: 06/02/19 07:55 Dose: 200 mg Documented by: Hydroxyzine HCl (Vistaril) 50 mg PO HSZ PRN PRN Reason: Insomnia Stop: 06/22/19 22:53 Last Admin: 06/01/19 01:37 Dose: 50 mg Documented by: Lorazepam (Ativan) 1 mg PO TID PRN PRN Reason: Anxiety Stop: 06/22/19 22:54 Last Admin: 06/02/19 17:13 Dose: 1 mg Documented by: Magnesium Hydroxide (Milk Of Magnesia) 30 ml PO DAILY PRN PRN Reason: Constipation Stop: 06/22/19 22:53 Metformin HCl (Glucophage) 250 mg PO DAILYBD SARA Stop: 06/29/19 17:14 Last Admin: 06/02/19 17:06 Dose: 250 mg Documented by: Paliperidone (Invega) 3 mg PO Q6 PRN PRN Reason: Agitation Stop: 06/23/19 17:59 Last Admin: 05/28/19 20:00 Dose: 3 mg Documented by: Paliperidone (Invega) 6 mg PO QAM SARA Stop: 06/24/19 13:14 Last Admin: 06/03/19 08:08 Dose: 6 mg Documented by: Sodium Chloride (Zap Nasal) 1 - 2 sprays NA PRN PRN PRN Reason: Nasal Dryness/Congestion Stop: 06/22/19 22:53 Mental Health & Subst Abuse Tx Psychiatrist Name of Psychiatrist: Dr. Wise Psychiatrist's Date of Appointment with Psychiatrist: 06/11/19 Time of Appointment with Psychiatrist: 12:20pm Psychiatric Appointment Comment: [address] [place] [address], [address] [place] [address] Therapist Name of Therapist: SpecifiedBy - Delma Durant Therapist's Date of Therapist Appointment: 06/05/19 Time of Therapist Appointment: 1:00 p.m. Therapy Appointment Comment: Telephone appt Social Service Worker Name of Social Service Worker: [facility] Zeferino Barron Phone Number for Social Service Worker: [phone] Post Discharge Appointments Primary Care Physician Name Of Family Doctor: Cristiana Lyons Primary Care Provider Appointment Comment: [address] [facility] Other #1: Name of Aftercare Appointment: Essence HANSEN Phone Number of Aftercare Appointment: [phone] Aftercare Appointment Comment: [address] [facility] [place] [address] #2: Name of Aftercare Appointment: Cristiana Brito - Dr. العراقي Phone Number of Aftercare Appointment: [phone] Time of Aftercare Appointment: Please call post discharge to reschedule telehealth appt Aftercare Appointment Comment: [address] [facility] Contact Information Discharge Discharge Address: [address] [place] [address], [place] [address]
[2019-06-03] MEDS: METFORMIN HCL 500 MG TAB PO SCH (17:14)
[2019-06-04] MEDS: clonazePAM 0.5 MG TAB PO SCH ×2 (07:45→20:29)
[2019-06-04] MEDS: PALIPERIDONE 3 MG TABCR PO SCH (07:45)
[2019-06-04] MEDS: BENZTROPINE MESYLATE 0.5 MG TAB PO SCH ×3 (07:46→20:29)
--- NOTE | 2019-06-04 09:06 | Psychiatric Progress Note ---
Date of Service June 04, 2019 Impression / Recommendations Impression 34 y/o male with schizophrenia, paranoid type with long history of auditory hallucinations of voices and paranoid delusions requiring multiple antipsychotic trials. He was initially admitted voluntarily, and converted to a 305 due to IOC. Psychotic symptoms worsened when Invega Sustenna was switched to Abilify Maintena, so oral paliperidone was started on admission. Benzodiazepines also being used due to high levels of anxiety and intrusive thoughts. Mood has improved, continues to struggle with delusions, intrusive thoughts, and anxiety. Although he reports improvement in these symptoms since his admission, he continues to require prn medications to target severe anxiety. Metformin was started on 05/29 due to weight gain with paliperidone in the past. Discharge planning meeting was held with his correctional case records supervisor and the [facility] staff yesterday, which went well, but he is feeling distraught and preparing for discharge, with worsening of psychotic symptoms and mood today. He remains at risk for signifi cant decompensation and therefore at increased risk of suicide if he is discharged prematurely. At this time, ongoing inpatient treatment is recommended. (1) Paranoid schizophrenia: 05/23--The patient was admitted to the [facility] ([facility]) on q15 min checks (behavioral with suicide precautions) for safety. The patient will participate in group, recreational, and milieu therapies and will be offered additional individual and family sessions as clinically appropriate. Case discussed with Dr. Wise. Agreed to offer Invega and Ativan prns with plan to use in combo with Abilify Maintena over next month while Abilify in system. Avoid typicals as prone to EPS if possible. 05/24--increase Invega to 6 mg, he'd prefer am dosing. Will add standing Klonopin to minimize breakthrough/Ativan prns. 05/25--continue current med plan for today, if remains sedated may dose Klonopin TID, no evidence of NMS, if fever check CPK and consult with infection control. 05/26--continue paliperidone 6 mg daily and 3 mg as needed, clonazepam 0.5 mg twice daily, and lorazepam 1 mg 3 times daily as needed. Patient remains afebrile and normotensive, but has had episodes of tachycardia. He reports resolution of cough and denies other URI symptoms. Tachycardia may be due to anxiety, as he reports feeling distraught about the command auditory hallucinations. --306 conversion hearing held today; --Schedule discharge planning meeting with [facility] staff and correctional case records supervisor. Care coordinated with Dr. Wise; will also notify his therapist Delma Durant of hospitalization. 05/27--Continue current medication regimen - anticipate conversion to Invega Sustenna ~4 weeks after previous Abilify Maintena injection was given. Pt currently on a 305 inpatient commitment. --Dietary consult placed due to patient's focus on snack choices and reported concern surrounding significant weight increase when on Invega Sustenna in the past. --Discharge planning meeting scheduled for 06/02 with [facility] staff and CM --Coordinate outpatient appointments 05/28--Continue current medication regimen --Remainder of treatment plan as above 05/29 - Continue current medication regimen, patient reportedly having a more difficult day today - Pt agreeable with initiation of metformin in attempts to combat metabolic side effects of atypical antipsychotic medications. Will begin with 250mg each evening with dinner and titrate as tolerated (low dose as patient is often preoccupied with medication changes and side effects). - Meeting with [facility] staff and CM on 06/02 - will discuss discharge planning further 05/30-06/01 --continue current medications, encourage patient to work on coping skills (reality testing, identifying healthy supports, examining what his daily structure will be after discharge as OP programming changes due to the pandemic). --Discharge planning meeting with his correctional case records supervisor and assisted staff 06/03/201906/02 - Continue psychiatric medication regimen as above - pt was agreeable with increasing metformin to 500mg with dinner starting this evening. - Positive meeting took place today with the patient, his correctional case records supervisor, and [facility] representation - Pt reporting desire to have "like a couple good days in a row" before feeling comfortable with discharge home 06/03 -Continue to encourage group attendance and participation, provide support, and assist the patient to identify short and long-term goals and a plan for how to reach them. He would also benefit from identifying healthy coping skills and reality testing methods. He would be helpful to make a daily schedule to ease his transition back to the [facility], as his current supports are limited due to the pandemic. Inventory Assets Strengths: compliant with outpatient care, intelligent Risk Factors Assessment Male: Yes : Yes Do You Have Access To A Gun?: No Substance Use Disorders: No Previous Attempt: No Previous Psychiatric Hospitalization: Yes Protective Factors Assessment Responsible for Young Children: No Employed: No Supportive Family: Yes Interval History Identifying Information CHAR BOLIVAR is a 34-year-old M who currently lives in [facility] home, has a history of schizophrenia, and was admitted on 05/23/19 22:20 on a 201 voluntary commitment for increase in paranoia and hallucinations for 2+ weeks. He is also on a 305 outpatient commitment, and 306 conversion held 05/27/2019. Chief Complaint " I gotta tell you, I feel bad". Review of Systems Sleep Information Total Hours of Sleep: 7.25 Sleep Comments: pt on q-15 minute checks Meal Information Percent Meal Consumed - Breakfast: 90 Percent Meal Consumed - Lunch: 100 Percent Meal Consumed - Dinner: 100 Nutrition Comment: per meal record Subjective Subjective Patient was seen & assessed and interval progress reviewed with treatment team. Staff report he had a meeting with his BCM and [facility] staff and was able to discuss some of his frustrations and concerns, and staff encouraged him to communicate these more openly with them. He expressed concerns that he was being given extra cleaning tasks, including cleaning up after other residents. They also agreed to help him to look for a new therapist. On my assessment today, the patient states that he is having a difficult morning, as he woke up "angry, frustrated, sad, I didn't want to take a shower, didn't want to finish breakfast, didn't want to fill out a menu." He thinks worsening mood was triggered by his meeting yesterday and thinking about discharge, feeling frustrated with the situation at the [facility], as he feels his roommates do not like him and take advantage of him, making him do all the cleaning. He wants to be able to get out and socialize, meet new friends, but recognizes that its difficult right now due to the pandemic. He says he "can't escape the delusions," and feels the [facility] is now becoming involved in his delusional thoughts. He talks about concerns that "people are watching me" and making fun of him at the [facility]. He endorses auditory hallucinations that comment on what he is reading, making derogatory statements, but denies suicidal thoughts. Physical Exam Psychiatric Orientation: alert and cooperative (and pleasant) Apperance: appropriately dressed (wearing same VIVEK since admission, khakis and a polo), appropriately groomed and appeared stated age Eye Contact: + fair eye contact Motor Behavior: steady gait and station and no abnormal motor movements Speech: normal rate/rhythm/volume of speech Affect: + depressed affect, + anxious affect, + constricted affect and mood congruent with affect Appears distraught Mood: + depressed mood and + anxious mood Thought Process: goal directed thought process Thought Content: + preoccupation, + paranoid, + cognitive distortions, + delusions (continues to describe "overlapping personalities"), + thought insertion, + persecution, + worthlessness, + loneliness, + guilt and + self deprecation Suicidal Thoughts: denies suicidal thoughts Homicidal Thoughts: denies homicidal thoughts Hallucinations: + auditory hallucinations; no visual hallucinations Cognition: recent memory grossly intact, attention grossly intact and language grossly intact Estimated Intelligence: consistent with education level Insight: + fair insight Judgement: + fair judgement Vital Signs (Past 24 Hours) Last Vital Signs Temp 36.5 C 06/04/19 06:41 Pulse 81 06/04/19 06:41 Resp 18 06/04/19 06:41 BP 116/72 06/04/19 06:41 Pulse Ox 96 05/26/19 17:35 Results & Data ([facility]) Current Inpatient Medications Current Inpatient Medications: Current Inpatient Medications Acetaminophen (Tylenol) 650 mg PO Q4H PRN PRN Reason: Headache or Minor Fever Stop: 06/22/19 22:53 Al Hydrox/Mg Hydrox/Simethicone (Maalox) 30 ml PO Q4H PRN PRN Reason: GI Upset Stop: 06/22/19 22:53 Benztropine Mesylate (Cogentin) 0.5 mg PO TID@1000,1400,2200 [facility] Stop: 06/23/19 13:59 Last Admin: 06/04/19 07:46 Dose: 0.5 mg Documented by: Bismuth Subsalicylate (Kaopectate) 15 ml PO PRN PRN PRN Reason: Loose Stool Stop: 06/22/19 22:53 Clonazepam (Klonopin) 0.5 mg PO BID [facility] Stop: 06/24/19 13:14 Last Admin: 06/04/19 07:45 Dose: 0.5 mg Documented by: Fluconazole (Diflucan) 200 mg PO Mo@0900 SARA Stop: 07/01/19 08:59 Last Admin: 06/02/19 07:55 Dose: 200 mg Documented by: Hydroxyzine HCl (Vistaril) 50 mg PO HSZ PRN PRN Reason: Insomnia Stop: 06/22/19 22:53 Last Admin: 06/01/19 01:37 Dose: 50 mg Documented by: Lorazepam (Ativan) 1 mg PO TID PRN PRN Reason: Anxiety Stop: 06/22/19 22:54 Last Admin: 06/02/19 17:13 Dose: 1 mg Documented by: Magnesium Hydroxide (Milk Of Magnesia) 30 ml PO DAILY PRN PRN Reason: Constipation Stop: 06/22/19 22:53 Metformin HCl (Glucophage) 250 mg PO DAILYBD SARA Stop: 06/29/19 17:14 Last Admin: 06/03/19 17:14 Dose: 250 mg Documented by: Paliperidone (Invega) 3 mg PO Q6 PRN PRN Reason: Agitation Stop: 06/23/19 17:59 Last Admin: 05/28/19 20:00 Dose: 3 mg Documented by: Paliperidone (Invega) 6 mg PO QAM SARA Stop: 06/24/19 13:14 Last Admin: 06/04/19 07:45 Dose: 6 mg Documented by: Sodium Chloride ([place] Nasal) 1 - 2 sprays NA PRN PRN PRN Reason: Nasal Dryness/Congestion Stop: 06/22/19 22:53 Mental Health & Subst Abuse Tx Psychiatrist Name of Psychiatrist: Dr. Wise Psychiatrist's Date of Appointment with Psychiatrist: 06/11/19 Time of Appointment with Psychiatrist: 12:20pm Psychiatric Appointment Comment: [facility] [address] [facility], [address], [place] Therapist Name of Therapist: Elli Durant Therapist's Date of Therapist Appointment: 06/05/19 Time of Therapist Appointment: 1:00 p.m. Therapy Appointment Comment: Telephone appt Machine Puller Name of Machine Puller: [facility] Phone Number for Machine Puller: [phone] Post Discharge Appointments Primary Care Physician Name Of Family Doctor: Cristiana Lyons Primary Care Provider Appointment Comment: [address] [facility] Contact Information Discharge Discharge Address: [address] [place] [address], [place] [address]
[2019-06-04] MEDS: LORazepam 1 MG TAB PO PRN (13:08)
[2019-06-04] MEDS: PALIPERIDONE 3 MG TABCR PO PRN (15:52)
[2019-06-04] MEDS: METFORMIN HCL 500 MG TAB PO SCH (17:24)
[2019-06-05] MEDS: PALIPERIDONE 3 MG TABCR PO SCH (08:31)
[2019-06-05] MEDS: BENZTROPINE MESYLATE 0.5 MG TAB PO SCH ×3 (08:32→20:50)
[2019-06-05] MEDS: clonazePAM 0.5 MG TAB PO SCH ×2 (08:33→20:50)
--- NOTE | 2019-06-05 09:53 | Psychiatric Progress Note ---
Date of Service June 05, 2019 Impression / Recommendations Impression 34 y/o male with schizophrenia, paranoid type with long history of auditory hallucinations of voices and paranoid delusions requiring multiple antipsychotic trials. He was initially admitted voluntarily, and converted to a 305 due to IOC. Psychotic symptoms worsened when Invega Sustenna was switched to Abilify Maintena, so oral paliperidone was started on admission. Benzodiazepines also being used due to high levels of anxiety and intrusive thoughts. Mood has improved, continues to struggle with delusions, intrusive thoughts, and anxiety. Although he reports improvement in these symptoms since his admission, he continues to require prn medications to target severe anxiety. Metformin was started on 05/29 due to weight gain with paliperidone in the past. Discharge planning meeting was held with his catalytic case operator and the [facility] staff yesterday, which went well, but he is feeling distraught and preparing for discharge, with worsening of psychotic symptoms and mood today. He remains at risk for signifi cant decompensation and therefore at increased risk of suicide if he is discharged prematurely. Will coordinate with [facility] staff regarding possible discharge early next week. At this time, ongoing inpatient treatment is recommended. (1) Paranoid schizophrenia: 05/23--The patient was admitted to the [facility] ([facility] unit) on q15 min checks (behavioral with suicide precautions) for safety. The patient will participate in group, recreational, and milieu therapies and will be offered additional individual and family sessions as clinically appropriate. Case discussed with Dr. Wise. Agreed to offer Invega and Ativan prns with plan to use in combo with Abilify Maintena over next month while Abilify in system. Avoid typicals as prone to EPS if possible. 05/24--increase Invega to 6 mg, he'd prefer am dosing. Will add standing Klonopin to minimize breakthrough/Ativan prns. 05/25--continue current med plan for today, if remains sedated may dose Klonopin TID, no evidence of NMS, if fever check CPK and consult with infection control. 05/26--continue paliperidone 6 mg daily and 3 mg as needed, clonazepam 0.5 mg twice daily, and lorazepam 1 mg 3 times daily as needed. Patient remains afebrile and normotensive, but has had episodes of tachycardia. He reports resolution of cough and denies other URI symptoms. Tachycardia may be due to anxiety, as he reports feeling distraught about the command auditory hallucinations. --306 conversion hearing held today; --Schedule discharge planning meeting with [facility] staff and catalytic case operator. Care coordinated with Dr. Wise; will also notify his therapist Delma Durant of hospitalization. 05/27--Continue current medication regimen - anticipate conversion to Invega Sustenna ~4 weeks after previous Abilify Maintena injection was given. Pt currently on a 305 inpatient commitment. --Dietary consult placed due to patient's focus on snack choices and reported concern surrounding significant weight increase when on Invega Sustenna in the past. --Discharge planning meeting scheduled for 06/02 with [facility] staff and CM --Coordinate outpatient appointments 05/28--Continue current medication regimen --Remainder of treatment plan as above 05/29 - Continue current medication regimen, patient reportedly having a more difficult day today - Pt agreeable with initiation of metformin in attempts to combat metabolic side effects of atypical antipsychotic medications. Will begin with 250mg each evening with dinner and titrate as tolerated (low dose as patient is often preoccupied with medication changes and side effects). - Meeting with [facility] staff and CM on 06/02 - will discuss discharge planning further 05/30-06/01 --continue current medications, encourage patient to work on coping skills (reality testing, identifying healthy supports, examining what his daily structure will be after discharge as OP programming changes due to the pandemic). --Discharge planning meeting with his catalytic case operator and senior care staff 06/03/201906/02 - Continue psychiatric medication regimen as above - pt was agreeable with increasing metformin to 500mg with dinner starting this evening. - Positive meeting took place today with the patient, his catalytic case operator, and [facility] representation - Pt reporting desire to have "like a couple good days in a row" before feeling comfortable with discharge home 06/03 -Continue to encourage group attendance and participation, provide support, and assist the patient to identify short and long-term goals and a plan for how to reach them. He would also benefit from identifying healthy coping skills and reality testing methods. He would be helpful to make a daily schedule to ease his transition back to the [facility], as his current supports are limited due to the pandemic. 06/04 - Continue current medication regimen, patient reporting prn paliperidone was very effective for him yesterday afternoon - Continue therapeutic plan as above, patient continues to require significant assistance from staff regarding recommendations to reach out to his positive supports from [employer] regarding goal planning and coping skills - Despite patient asking staff to stop informing him when his parents call into the unit, patient has been calling them of his own accord - reporting the phone calls are distressing to him. - Given several outpatient psychiatric appointments next week, encourage working with patient on setting discharge goals and a daily schedule - consider discharge early next week if condition remains stable Inventory Assets Strengths: compliant with outpatient care, intelligent Risk Factors Assessment Male: Yes : Yes Do You Have Access To A Gun?: No Substance Use Disorders: No Previous Attempt: No Previous Psychiatric Hospitalization: Yes Protective Factors Assessment Responsible for Young Children: No Employed: No Supportive Family: Yes Interval History Identifying Information CHAR BOLIVAR is a 34-year-old M who currently lives in [facility], has a history of schizophrenia, and was admitted on 05/23/19 22:20 on a 201 voluntary commitment for increase in paranoia and hallucinations for 2+ weeks. He is also on a 305 outpatient commitment, and 306 conversion held 05/27/2019. Chief Complaint "Ah, I'm so-so." Review of Systems Notes Constitutional: denied Cardiovascular: denied Respiratory: denied Gastrointestinal: denied Neurological: denied Psychiatric: denies symptoms other than stated above Total of at least 10 systems reviewed, pertinent positives as above and in HPI. Sleep Information Total Hours of Sleep: 4.25 Sleep Comments: pt given vistaril per rn. pt awoke @0130 for about 1.5 hrs. pt appeared to be asleep afterwards. pt on q-15 minute checks Meal Information Percent Meal Consumed - Breakfast: 75 Percent Meal Consumed - Lunch: 100 Percent Meal Consumed - Dinner: 100 Nutrition Comment: per meal record Subjective Subjective Patient was seen & assessed and interval progress reviewed with nursing and social work. Staff report the patient appeared to have had a rather difficult day yesterday, as he presented as more irritable and reported poor sleep. Pt did rated his mood a 6-7/10 and "attentive" by evening. Pt has requested staff restrict phone calls from his parents, although patient continues to call out to them intermittently. Pt was seen today to assess progress since admission. Pt states he is feeling "so-so" today. He admits "I woke up feeling pretty cranky yesterday." He admits to increased irritability in the morning and early af ternoon, but is unable to provide any specific reasoning - aside from "maybe bad dreams or something, I don't know." Pt does report "my mood improved quite a bit as the day went on, so I think that was good." Pt proceeds to discuss recent phone calls with his parents, stating "I think my parents are a trigger for my illness." We discussed his feelings related to his recent phone calls with them. His report implies a belief that his parents are overbearing and provide some interference with goals. He was able to engage in productive conversation regarding positive supports through [employer] and verbalized that he would feel comfortable calling them and reaching out to them with concerns and questions after discharge. Pt denied suicidal ideation today. We discussed his scheduled psychiatry and therapy appointment next week, and patient seemed interested in a discharge early in the week to allow for him to make these appointments. Pt denied other needs or concerns today. Physical Exam Psychiatric Orientation: alert, oriented x 3 and cooperative Apperance: appropriately dressed (casually, khakis and t-shirt - wearing same clothes for several days), appropriately groomed and appeared stated age Eye Contact: good eye contact Motor Behavior: no abnormal motor movements (observed while sitting on edge of bed) Speech: normal rate/rhythm/volume of speech Affect: + anxious affect Mood: + anxious mood ("I don't know, I still get overwhelmed sometimes") Thought Process: goal directed thought process and clear/coherent thought process Thought Content: + preoccupation and + obsessions (and ruminations) Suicidal Thoughts: denies suicidal thoughts and denies suicidal intent Homicidal Thoughts: denies homicidal thoughts Hallucinations: + auditory hallucinations (improving); no visual hallucinations Cognition: attention grossly intact and language grossly intact Insight: + fair insight Judgement: + fair judgement Vital Signs (Past 24 Hours) Last Vital Signs Temp 36.4 C L 06/05/19 06:44 Pulse 105 H 06/05/19 06:44 Resp 18 06/05/19 06:44 BP 118/79 06/05/19 06:44 Pulse Ox 96 05/26/19 17:35 Results & Data ([facility]) Current Inpatient Medications Current Inpatient Medications: Current Inpatient Medications Acetaminophen (Tylenol) 650 mg PO Q4H PRN PRN Reason: Headache or Minor Fever Stop: 06/22/19 22:53 Al Hydrox/Mg Hydrox/Simethicone (Maalox) 30 ml PO Q4H PRN PRN Reason: GI Upset Stop: 06/22/19 22:53 Benztropine Mesylate (Cogentin) 0.5 mg PO TID@1000,1400,2200 [facility] Stop: 06/23/19 13:59 Last Admin: 06/05/19 08:32 Dose: 0.5 mg Documented by: Bismuth Subsalicylate (Kaopectate) 15 ml PO PRN PRN PRN Reason: Loose Stool Stop: 06/22/19 22:53 Clonazepam (Klonopin) 0.5 mg PO BID [facility] Stop: 06/24/19 13:14 Last Admin: 06/05/19 08:33 Dose: 0.5 mg Documented by: Fluconazole (Diflucan) 200 mg PO Mo@0900 [facility] Stop: 07/01/19 08:59 Last Admin: 06/02/19 07:55 Dose: 200 mg Documented by: Hydroxyzine HCl (Vistaril) 50 mg PO HSZ PRN PRN Reason: Insomnia Stop: 06/22/19 22:53 Last Admin: 06/05/19 02:53 Dose: 50 mg Documented by: Lorazepam (Ativan) 1 mg PO TID PRN PRN Reason: Anxiety Stop: 06/22/19 22:54 Last Admin: 06/04/19 13:08 Dose: 1 mg Documented by: Magnesium Hydroxide (Milk Of Magnesia) 30 ml PO DAILY PRN PRN Reason: Constipation Stop: 06/22/19 22:53 Metformin HCl (Glucophage) 250 mg PO DAILYBD SARA Stop: 06/29/19 17:14 Last Admin: 06/04/19 17:24 Dose: 250 mg Documented by: Paliperidone (Invega) 3 mg PO Q6 PRN PRN Reason: Agitation Stop: 06/23/19 17:59 Last Admin: 06/04/19 15:52 Dose: 3 mg Documented by: Paliperidone (Invega) 6 mg PO QAM [facility] Stop: 06/24/19 13:14 Last Admin: 06/05/19 08:31 Dose: 6 mg Documented by: Sodium Chloride (Berks Nasal) 1 - 2 sprays NA PRN PRN PRN Reason: Nasal Dryness/Congestion Stop: 06/22/19 22:53 Mental Health & Subst Abuse Tx Psychiatrist Name of Psychiatrist: Dr. Wise Psychiatrist's Date of Appointment with Psychiatrist: 06/11/19 Time of Appointment with Psychiatrist: 12:20pm Psychiatric Appointment Comment: [address], [address], [place] Therapist Name of Therapist: [facility] - Delma Durant Therapist's Date of Therapist Appointment: 06/10/19 Time of Therapist Appointment: 9:00 a.m. Therapy Appointment Comment: Telephone appt Hatchery Man [facility] Phone Number for Hatchery Man: [phone] Post Discharge Appointments Primary Care Physician Name Of Family Doctor: Cristiana Lyons Primary Care Provider Appointment Comment: [address] [facility] Other #1: Name of Aftercare Appointment: Essence Castillo or [place] Phone Number of Aftercare Appointment: [phone] Aftercare Appointment Comment: [address] [facility] [address] #2: Name of Aftercare Appointment: [facility] - Dr. العراقي Phone Number of Aftercare Appointment: [phone] Time of Aftercare Appointment: Please call post discharge to reschedule telehealth appt Aftercare Appointment Comment: [address] [facility] Contact Information Discharge Discharge Address: [address] [place] [address], [place] [address]
[2019-06-05] MEDS: LORazepam 1 MG TAB PO PRN (11:22)
[2019-06-05] MEDS: METFORMIN HCL 500 MG TAB PO SCH (17:38)
[2019-06-06] MEDS: clonazePAM 0.5 MG TAB PO SCH ×2 (08:40→21:28)
[2019-06-06] MEDS: PALIPERIDONE 3 MG TABCR PO SCH (08:40)
[2019-06-06] MEDS: BENZTROPINE MESYLATE 0.5 MG TAB PO SCH ×3 (10:30→21:28)
[2019-06-06] MEDS: LORazepam 1 MG TAB PO PRN (10:40)
--- NOTE | 2019-06-06 11:18 | Psychiatric Progress Note ---
Date of Service June 06, 2019 Impression / Recommendations Impression 34 y/o male with schizophrenia, paranoid type with long history of auditory hallucinations of voices and paranoid delusions requiring multiple antipsychotic trials. He was initially admitted voluntarily, and converted to a 305 due to IOC. Psychotic symptoms worsened when Invega Sustenna was switched to Abilify Maintena, so oral paliperidone was started on admission. Benzodiazepines also being used due to high levels of anxiety and intrusive thoughts. Mood has improved, continues to struggle with delusions, intrusive thoughts, and anxiety. Although he reports improvement in these symptoms since his admission, he continues to require prn medications to target severe anxiety. Metformin was started on 05/29 due to weight gain with paliperidone in the past. Discharge planning meeting was held with his manager case management and the [facility] staff yesterday, which went well, but he is feeling distraught and preparing for discharge, with worsening of psychotic symptoms and mood today. He remains at risk for signifi cant decompensation and therefore at increased risk of suicide if he is discharged prematurely. Will coordinate with [facility] staff regarding possible discharge early next week. At this time, ongoing inpatient treatment is recommended. (1) Paranoid schizophrenia: 05/23--The patient was admitted to the [facility] ([facility] mental health unit) on q15 min checks (behavioral with suicide precautions) for safety. The patient will participate in group, recreational, and milieu therapies and will be offered additional individual and family sessions as clinically appropriate. Case discussed with Dr. Wise. Agreed to offer Invega and Ativan prns with plan to use in combo with Abilify Maintena over next month while Abilify in system. Avoid typicals as prone to EPS if possible. 05/24--increase Invega to 6 mg, he'd prefer am dosing. Will add standing Klonopin to minimize breakthrough/Ativan prns. 05/25--continue current med plan for today, if remains sedated may dose Klonopin TID, no evidence of NMS, if fever check CPK and consult with infection control. 05/26--continue paliperidone 6 mg daily and 3 mg as needed, clonazepam 0.5 mg twice daily, and lorazepam 1 mg 3 times daily as needed. Patient remains afebrile and normotensive, but has had episodes of tachycardia. He reports resolution of cough and denies other URI symptoms. Tachycardia may be due to anxiety, as he reports feeling distraught about the command auditory hallucinations. --306 conversion hearing held today; --Schedule discharge planning meeting with [facility] staff and manager case management. Care coordinated with Dr. Wise; will also notify his therapist Delma Durant of hospitalization. 05/27--Continue current medication regimen - anticipate conversion to Invega Sustenna ~4 weeks after previous Abilify Maintena injection was given. Pt currently on a 305 inpatient commitment. --Dietary consult placed due to patient's focus on snack choices and reported concern surrounding significant weight increase when on Invega Sustenna in the past. --Discharge planning meeting scheduled for 06/02 with [facility] staff and CM --Coordinate outpatient appointments 05/28--Continue current medication regimen --Remainder of treatment plan as above 05/29 - Continue current medication regimen, patient reportedly having a more difficult day today - Pt agreeable with initiation of metformin in attempts to combat metabolic side effects of atypical antipsychotic medications. Will begin with 250mg each evening with dinner and titrate as tolerated (low dose as patient is often preoccupied with medication changes and side effects). - Meeting with [facility] staff and CM on 06/02 - will discuss discharge planning further 05/30-06/01 --continue current medications, encourage patient to work on coping skills (reality testing, identifying healthy supports, examining what his daily structure will be after discharge as OP programming changes due to the pandemic). --Discharge planning meeting with his manager case management and correction staff 06/03/201906/02 - Continue psychiatric medication regimen as above - pt was agreeable with increasing metformin to 500mg with dinner starting this evening. - Positive meeting took place today with the patient, his manager case management, and [facility] representation - Pt reporting desire to have "like a couple good days in a row" before feeling comfortable with discharge home 06/03 -Continue to encourage group attendance and participation, provide support, and assist the patient to identify short and long-term goals and a plan for how to reach them. He would also benefit from identifying healthy coping skills and reality testing methods. He would be helpful to make a daily schedule to ease his transition back to the [facility], as his current supports are limited due to the pandemic. 06/04 - Continue current medication regimen, patient reporting prn paliperidone was very effective for him yesterday afternoon - Continue therapeutic plan as above, patient continues to require significant assistance from staff regarding recommendations to reach out to his positive supports from [employer] regarding goal planning and coping skills - Despite patient asking staff to stop informing him when his parents call into the unit, patient has been calling them of his own accord - reporting the phone calls are distressing to him. - Given several outpatient psychiatric appointments next week, encourage working with patient on setting discharge goals and a daily schedule - consider discharge early next week if condition remains stable 06/05 - Continue treatment plan as outlined above - Anticipate working with [facility] staff to coordinate a discharge as early as 06/09/2019 Inventory Assets Strengths: compliant with outpatient care, intelligent Risk Factors Assessment Male: Yes : Yes Do You Have Access To A Gun?: No Substance Use Disorders: No Previous Attempt: No Previous Psychiatric Hospitalization: Yes Protective Factors Assessment Responsible for Young Children: No Employed: No Supportive Family: Yes Interval History Identifying Information CHAR BOLIVAR is a 34-year-old M who currently lives in [facility] home, has a history of schizophrenia, and was admitted on 05/23/19 22:20 on a 201 voluntary commitment for increase in paranoia and hallucinations for 2+ weeks. He is also on a 305 outpatient commitment, and 306 conversion held 05/27/2019. Chief Complaint "I'm having some anxiety right now." Review of Systems Notes Constitutional: denied Cardiovascular: denied Respiratory: denied Gastrointestinal: denied Neurological: denied Psychiatric: denies symptoms other than stated above Total of at least 10 systems reviewed, pertinent positives as above and in HPI. Sleep Information Total Hours of Sleep: 6 Sleep Comments: pt on q-15 minute checks Meal Information Percent Meal Consumed - Breakfast: 100 Percent Meal Consumed - Lunch: 100 Percent Meal Consumed - Dinner: 100 Nutrition Comment: per meal record Subjective Subjective Patient was seen & assessed and interval progress reviewed with treatment team. Staff report the patient continues to participate in group and recreational programming. Pt was seen today to assess progress since admission. Pt states that he is experiencing increased anxiety this morning. He reports having spoken to his goals coordinator through [facility] this morning, and learned this individual was planning to call his parents to assist the patient in getting access to his social security card. Pt states that his present anxiety is related to "I'm worried my parents will be mean to her. I know they can be difficult to talk to." Pt was reassured that this individual deals with many types of conversations in her line of work, and may actually be a good person to offer an explanation to his parents as to the resources he will need in order to reach the goals they are working toward. Pt remained preoccupied with this topic for the duration of our conversation, but was able to be intermittently directed toward other subjects. Pt states that he is continuing to experience the sensation that other "spirits" can overlap his own and see the world through his eyes. He remains able to participate in reality testing, and is able to admit that this generally occurs when the patient is anxious or "feeling triggered." We discussed his use of prn medications for anxiety, but also reviewed helpful coping strategies for anxiety. Pt was also reminded of his support system at the [facility] and his team of providers. Pt denied any suicidal ideation and is not verbalizing any concerns related to anticipated discharge on 06/09/2019. He denies other needs or concerns today. Physical Exam Psychiatric Orientation: alert, oriented x 3 and cooperative Apperance: appropriately dressed (casually, wearing same khakis and polo for several days ) and + disheveled (stubble on face, appearing more unkempt as his admission continues) (His more unkempt presentation seems most consistent with prolonged hospitalization as opposed to demonstration of poor self-care). Eye Contact: good eye contact Motor Behavior: no abnormal motor movements (observed while sitting on edge of bed) Speech: normal rate/rhythm/volume of speech (anxious tone) Affect: + anxious affect Mood: + anxious mood Thought Process: goal directed thought process and clear/coherent thought process Thought Content: + preoccupation (with phone call being made to parents by [facility] staff) and + delusions (ongoing, admits they are exacerbated by anxiety ); no hopelessness Suicidal Thoughts: denies suicidal thoughts Homicidal Thoughts: denies homicidal thoughts Hallucinations: + auditory hallucinations (occasionally hearing voices of "spirits" overlapping his own); no visual hallucinations Cognition: attention grossly intact and language grossly intact Insight: + fair insight Judgement: + fair judgement Vital Signs (Past 24 Hours) Last Vital Signs Temp 36.3 C L 06/06/19 06:57 Pulse 91 H 06/06/19 06:58 Resp 18 06/06/19 06:57 BP 124/75 06/06/19 06:58 Pulse Ox 96 05/26/19 17:35 Results & Data ([facility]) Current Inpatient Medications Current Inpatient Medications: Current Inpatient Medications Acetaminophen (Tylenol) 650 mg PO Q4H PRN PRN Reason: Headache or Minor Fever Stop: 06/22/19 22:53 Al Hydrox/Mg Hydrox/Simethicone (Maalox) 30 ml PO Q4H PRN PRN Reason: GI Upset Stop: 06/22/19 22:53 Benztropine Mesylate (Cogentin) 0.5 mg PO TID@1000,1400,2200 [facility] Stop: 06/23/19 13:59 Last Admin: 06/06/19 10:30 Dose: 0.5 mg Documented by: Bismuth Subsalicylate (Kaopectate) 15 ml PO PRN PRN PRN Reason: Loose Stool Stop: 06/22/19 22:53 Clonazepam (Klonopin) 0.5 mg PO BID [facility] Stop: 06/24/19 13:14 Last Admin: 06/06/19 08:40 Dose: 0.5 mg Documented by: Fluconazole (Diflucan) 200 mg PO Mo@0900 [facility] Stop: 07/01/19 08:59 Last Admin: 06/02/19 07:55 Dose: 200 mg Documented by: Hydroxyzine HCl (Vistaril) 50 mg PO HSZ PRN PRN Reason: Insomnia Stop: 06/22/19 22:53 Last Admin: 06/05/19 02:53 Dose: 50 mg Documented by: Lorazepam (Ativan) 1 mg PO TID PRN PRN Reason: Anxiety Stop: 06/22/19 22:54 Last Admin: 06/06/19 10:40 Dose: 1 mg Documented by: Magnesium Hydroxide (Milk Of Magnesia) 30 ml PO DAILY PRN PRN Reason: Constipation Stop: 06/22/19 22:53 Metformin HCl (Glucophage) 500 mg PO DAILYBD [facility] Stop: 07/05/19 17:14 Last Admin: 06/05/19 17:38 Dose: 500 mg Documented by: Paliperidone (Invega) 3 mg PO Q6 PRN PRN Reason: Agitation Stop: 06/23/19 17:59 Last Admin: 06/04/19 15:52 Dose: 3 mg Documented by: Paliperidone (Invega) 6 mg PO QAM SARA Stop: 06/24/19 13:14 Last Admin: 06/06/19 08:40 Dose: 6 mg Documented by: Sodium Chloride ([place] Nasal) 1 - 2 sprays NA PRN PRN PRN Reason: Nasal Dryness/Congestion Stop: 06/22/19 22:53 Mental Health & Subst Abuse Tx Psychiatrist Name of Psychiatrist: Dr. Wise Psychiatrist's Date of Appointment with Psychiatrist: 06/11/19 Time of Appointment with Psychiatrist: 12:20pm Psychiatric Appointment Comment: [address], [address], [place] Therapist Name of Therapist: [facility] - Delma Durant Therapist's Date of Therapist Appointment: 06/10/19 Time of Therapist Appointment: 9:00 a.m. Therapy Appointment Comment: Telephone appt Retail Clerk Name of Retail Clerk: [facility] Zeferino Cruza Phone Number for Retail Clerk: [phone] Post Discharge Appointments Primary Care Physician Name Of Family Doctor: Cristiana Lyons Primary Care Provider Appointment Comment: [address] [facility] Other #1: Name of Aftercare Appointment: Essence Castillo or Meron Phone Number of Aftercare Appointment: [phone] Aftercare Appointment Comment: [address] [place] [address] #2: Name of Aftercare Appointment: [facility] Cornelia العراقي Phone Number of Aftercare Appointment: [phone] Time of Aftercare Appointment: Please call post discharge to reschedule telehealth appt Aftercare Appointment Comment: [address] [facility] Contact Information Discharge Discharge Address: [address] [place] [id number]
[2019-06-06] MEDS: METFORMIN HCL 500 MG TAB PO SCH (17:26)
[2019-06-06] MEDS: PALIPERIDONE 3 MG TABCR PO PRN (18:37)
[2019-06-07] MEDS: PALIPERIDONE 3 MG TABCR PO SCH (09:02)
[2019-06-07] MEDS: clonazePAM 0.5 MG TAB PO SCH ×2 (09:02→20:33)
[2019-06-07] MEDS: BENZTROPINE MESYLATE 0.5 MG TAB PO SCH ×3 (10:30→20:34)
--- NOTE | 2019-06-07 13:30 | Psychiatric Progress Note ---
Date of Service June 07, 2019 Impression / Recommendations Impression 34 y/o male with schizophrenia, paranoid type with long history of auditory hallucinations of voices and paranoid delusions requiring multiple antipsychotic trials. He was initially admitted voluntarily, and converted to a 305 due to IOC. Psychotic symptoms worsened when Invega Sustenna was switched to Abilify Maintena, so oral paliperidone was started on admission. Benzodiazepines also being used due to high levels of anxiety and intrusive thoughts. Mood has improved, continues to struggle with delusions, intrusive thoughts, and anxiety. Although he reports improvement in these symptoms since his admission, he continues to require prn medications to target severe anxiety. Metformin was started on 05/29 due to weight gain with paliperidone in the past. Reviewed Plan: continue current meds and treatment plan. Inventory Assets Strengths: compliant with outpatient care, intelligent Risk Factors Assessment Male: Yes : Yes Do You Have Access To A Gun?: No Substance Use Disorders: No Previous Attempt: No Previous Psychiatric Hospitalization: Yes Protective Factors Assessment Responsible for Young Children: No Employed: No Supportive Family: Yes Interval History Identifying Information CHAR BOLIVAR is a 34-year-old M who currently lives in [facility], has a history of schizophrenia, and was admitted on 05/23/19 22:20 on a 201 voluntary commitment for increase in paranoia and hallucinations for 2+ weeks. He is also on a 305 outpatient commitment, and 306 conversion held 05/27/2019.Reviewed Chief Complaint "I'm good, slept better, would like that prn for when I leave". Review of Systems Sleep Information Total Hours of Sleep: 4.75 Sleep Comments: patient reported difficulty falling back to sleep when awake from 0230 to 0330. Meal Information Percent Meal Consumed - Breakfast: 100 Percent Meal Consumed - Lunch: 100 Percent Meal Consumed - Dinner: 100 Nutrition Comment: per meal record Subjective Subjective Patient was seen & assessed and interval progress reviewed with nursing and social work. preoccupied at times, seemed overhwhelmed working on safety plan per staff though denies today. received prn Invega and VistarilX2. He asked appropriate questions. Physical Exam Psychiatric Orientation: alert Apperance: appropriately groomed Eye Contact: good eye contact Motor Behavior: steady gait and station and no abnormal motor movements Speech: normal rate/rhythm/volume of speech Affect: euthymic affect Mood: + anxious mood Thought Process: linear/logical thought process Thought Content: reality based without delusions Suicidal Thoughts: denies suicidal thoughts Homicidal Thoughts: denies homicidal thoughts Hallucinations: no auditory hallucinations and no visual hallucinations Insight: + fair insight Judgement: + fair judgement Vital Signs (Past 24 Hours) Last Vital Signs Temp 36.5 C 06/07/19 07:07 Pulse 81 06/07/19 07:08 Resp 18 06/07/19 07:07 BP 116/72 06/07/19 07:08 Pulse Ox 96 05/26/19 17:35 Results & Data ([facility]) Current Inpatient Medications Current Inpatient Medications: Current Inpatient Medications Acetaminophen (Tylenol) 650 mg PO Q4H PRN PRN Reason: Headache or Minor Fever Stop: 06/22/19 22:53 Al Hydrox/Mg Hydrox/Simethicone (Maalox) 30 ml PO Q4H PRN PRN Reason: GI Upset Stop: 06/22/19 22:53 Benztropine Mesylate (Cogentin) 0.5 mg PO TID@1000,1400,2200 [facility] Stop: 06/23/19 13:59 Last Admin: 06/07/19 10:30 Dose: 0.5 mg Documented by: Bismuth Subsalicylate (Kaopectate) 15 ml PO PRN PRN PRN Reason: Loose Stool Stop: 06/22/19 22:53 Clonazepam (Klonopin) 0.5 mg PO BID [facility] Stop: 06/24/19 13:14 Last Admin: 06/07/19 09:02 Dose: 0.5 mg Documented by: Fluconazole (Diflucan) 200 mg PO Mo@0900 [facility] Stop: 07/01/19 08:59 Last Admin: 06/02/19 07:55 Dose: 200 mg Documented by: Hydroxyzine HCl (Vistaril) 50 mg PO HSZ PRN PRN Reason: Insomnia Stop: 06/22/19 22:53 Last Admin: 06/07/19 03:04 Dose: 50 mg Documented by: Lorazepam (Ativan) 1 mg PO TID PRN PRN Reason: Anxiety Stop: 06/22/19 22:54 Last Admin: 06/06/19 10:40 Dose: 1 mg Documented by: Magnesium Hydroxide (Milk Of Magnesia) 30 ml PO DAILY PRN PRN Reason: Constipation Stop: 06/22/19 22:53 Metformin HCl (Glucophage) 500 mg PO DAILYBD SARA Stop: 07/05/19 17:14 Last Admin: 06/06/19 17:26 Dose: 500 mg Documented by: Paliperidone (Invega) 3 mg PO Q6 PRN PRN Reason: Agitation Stop: 06/23/19 17:59 Last Admin: 06/06/19 18:37 Dose: 3 mg Documented by: Paliperidone (Invega) 6 mg PO QAM SARA Stop: 06/24/19 13:14 Last Admin: 06/07/19 09:02 Dose: 6 mg Documented by: Sodium Chloride ([place] Nasal) 1 - 2 sprays NA PRN PRN PRN Reason: Nasal Dryness/Congestion Stop: 06/22/19 22:53 Mental Health & Subst Abuse Tx Psychiatrist Name of Psychiatrist: Dr. Wise Psychiatrist's Date of Appointment with Psychiatrist: 06/11/19 Time of Appointment with Psychiatrist: 12:20pm Psychiatric Appointment Comment: [address] [place] [address], [address] Therapist Name of Therapist: [employer] - Delma Durant Therapist's Date of Therapist Appointment: 06/10/19 Time of Therapist Appointment: 9:00 a.m. Therapy Appointment Comment: Telephone appt Applied Computer Science Professor Name of Applied Computer Science Professor: [facility] Service Zeferino Barron Phone Number for Applied Computer Science Professor: [phone] Post Discharge Appointments Primary Care Physician Name Of Family Doctor: Cristiana Lyons Primary Care Provider Appointment Comment: [address] [facility] Contact Information Discharge Discharge Address: [address] [place] [address], [place] [address]
[2019-06-07] MEDS: METFORMIN HCL 500 MG TAB PO SCH (17:25)
[2019-06-07] MEDS: PALIPERIDONE 3 MG TABCR PO PRN (19:46)
[2019-06-08] MEDS: clonazePAM 0.5 MG TAB PO SCH ×2 (07:46→17:27)
[2019-06-08] MEDS: PALIPERIDONE 3 MG TABCR PO SCH (07:46)
[2019-06-08] MEDS: BENZTROPINE MESYLATE 0.5 MG TAB PO SCH ×3 (07:46→20:19)
--- NOTE | 2019-06-08 11:35 | Psychiatric Progress Note ---
Date of Service June 08, 2019 Impression / Recommendations Impression 34 y/o male with schizophrenia, paranoid type with long history of auditory hallucinations of voices and paranoid delusions requiring multiple antipsychotic trials. He was initially admitted voluntarily, and converted to a 305 due to IOC. Psychotic symptoms worsened when Invega Sustenna was switched to Abilify Maintena, so oral paliperidone was started on admission. Benzodiazepines also being used due to high levels of anxiety and intrusive thoughts. Mood has improved, continues to struggle with delusions, intrusive thoughts, and anxiety. Although he reports improvement in these symptoms since his admission, he continues to require prn medications to target severe anxiety. Metformin was started on 05/29 due to weight gain with paliperidone in the past. Reviewed More anxious in anticipation of discharge (1) Paranoid schizophrenia: 05/23--The patient was admitted to the [facility] on q15 min checks (behavioral with suicide precautions) for safety. The patient will participate in group, recreational, and milieu therapies and will be offered additional individual and family sessions as clinically appropriate. Case discussed with Dr. Wise. Agreed to offer Invega and Ativan prns with plan to use in combo with Abilify Maintena over next month while Abilify in system. Avoid typicals as prone to EPS if possible. 05/24--increase Invega to 6 mg, he'd prefer am dosing. Will add standing Klonopin to minimize breakthrough/Ativan prns. 05/25--continue current med plan for today, if remains sedated may dose Klonopin TID, no evidence of NMS, if fever check CPK and consult with infection control. 05/26--continue paliperidone 6 mg daily and 3 mg as needed, clonazepam 0.5 mg twice daily, and lorazepam 1 mg 3 times daily as needed. Patient remains afebrile and normotensive, but has had episodes of tachycardia. He reports resolution of cough and denies other URI symptoms. Tachycardia may be due to anxiety, as he reports feeling distraught about the command auditory hallucinations. --306 conversion hearing held today; --Schedule discharge planning meeting with [facility] staff and casework specialist. Care coordinated with Dr. Wise; will also notify his therapist Delma Durant of hospitalization. 4/8--Continue current medication regimen - anticipate conversion to Invega Sustenna ~4 weeks after previous Abilify Maintena injection was given. Pt currently on a 305 inpatient commitment. --Dietary consult placed due to patient's focus on snack choices and reported concern surrounding significant weight increase when on Invega Sustenna in the past. --Discharge planning meeting scheduled for 06/02 with [facility] staff and CM --Coordinate outpatient appointments 05/28--Continue current medication regimen --Remainder of treatment plan as above 05/29 - Continue current medication regimen, patient reportedly having a more difficult day today - Pt agreeable with initiation of metformin in attempts to combat metabolic side effects of atypical antipsychotic medications. Will begin with 250mg each evening with dinner and titrate as tolerated (low dose as patient is often preoccupied with medication changes and side effects). - Meeting with [facility] staff and CM on 06/02 - will discuss discharge planning further 05/30-06/01 --continue current medications, encourage patient to work on coping skills (reality testing, identifying healthy supports, examining what his daily structure will be after discharge as OP programming changes due to the pandemic). --Discharge planning meeting with his casework specialist and [facility] staff 06/03/201906/02 - Continue psychiatric medication regimen as above - pt was agreeable with increasing metformin to 500mg with dinner starting this evening. - Positive meeting took place today with the patient, his casework specialist, and [facility] representation - Pt reporting desire to have "like a couple good days in a row" before feeling comfortable with discharge home 06/03 -Continue to encourage group attendance and participation, provide support, and assist the patient to identify short and long-term goals and a plan for how to reach them. He would also benefit from identifying healthy coping skills and reality testing methods. He would be helpful to make a daily schedule to ease his transition back to the [facility], as his current supports are limited due to the pandemic. 06/04 - Continue current medication regimen, patient reporting prn paliperidone was very effective for him yesterday afternoon - Continue therapeutic plan as above, patient continues to require significant assistance from staff regarding recommendations to reach out to his positive supports from [employer] regarding goal planning and coping skills - Despite patient asking staff to stop informing him when his parents call into the unit, patient has been calling them of his own accord - reporting the phone calls are distressing to him. - Given several outpatient psychiatric appointments next week, encourage working with patient on setting discharge goals and a daily schedule - consider discharge early next week if condition remains stable 06/05 - Continue treatment plan as outlined above - Anticipate working with [facility] staff to coordinate a discharge as early as 06/09/201906/07 - shift ranulfopin from hs to 5 pm to address breakthrough anxiety. He has used Vistaril throughout his stay here and is now agreeable to standing dose to ease transition back to [facility]. Inventory Assets Strengths: compliant with outpatient care, intelligent Risk Factors Assessment Male: Yes : Yes Do You Have Access To A Gun?: No Substance Use Disorders: No Previous Attempt: No Previous Psychiatric Hospitalization: Yes Protective Factors Assessment Responsible for Young Children: No Employed: No Supportive Family: Yes Interval History Identifying Information CHAR BOLIVAR is a 34-year-old M who currently lives in [facility], has a history of schizophrenia, and was admitted on 05/23/19 22:20 on a 201 voluntary commitment for increase in paranoia and hallucinations for 2+ weeks. He is also on a 305 outpatient commitment, and 306 conversion held 05/27/2019.Reviewed Chief Complaint "I called Dr. Wise last night because I thought he should know about my [place]". Review of Systems Sleep Information Total Hours of Sleep: 5.5 Sleep Comments: patient reported difficulty falling back to sleep when awake from 0230 to 0330. Meal Information Percent Meal Consumed - Breakfast: 100 Percent Meal Consumed - Lunch: 100 Percent Meal Consumed - Dinner: 100 Nutrition Comment: per meal record Subjective Subjective Patient was seen & assessed and interval progress reviewed with nursing and social work. Anxiety in anticipation of discharge manifest as increase in thought disorganization last pm, DFA. Seems to have difficulty communicating needs to staff at that time due to anxiety. He told a staff member this am that he called his outpatient psychiatrist and left a message. Denies any [place] or sense of an evil presence this am. Physical Exam Psychiatric Orientation: alert Apperance: appropriately groomed Eye Contact: + fair eye contact Motor Behavior: no abnormal motor movements Speech: normal rate/rhythm/volume of speech Affect: + anxious affect Mood: + anxious mood Thought Process: + concrete thought process Thought Content: no delusions Suicidal Thoughts: denies suicidal thoughts Homicidal Thoughts: denies homicidal thoughts Hallucinations: no auditory hallucinations and no visual hallucinations Insight: + limited insight Judgement: + limited judgement Vital Signs (Past 24 Hours) Last Vital Signs Temp 34.7 C L 06/08/19 07:00 Pulse 105 H 06/08/19 07:01 Resp 18 06/08/19 07:00 BP 123/76 06/08/19 07:01 Pulse Ox 96 05/26/19 17:35 Results & Data ([facility]) Current Inpatient Medications Current Inpatient Medications: Current Inpatient Medications Acetaminophen (Tylenol) 650 mg PO Q4H PRN PRN Reason: Headache or Minor Fever Stop: 06/22/19 22:53 Al Hydrox/Mg Hydrox/Simethicone (Maalox) 30 ml PO Q4H PRN PRN Reason: GI Upset Stop: 06/22/19 22:53 Benztropine Mesylate (Cogentin) 0.5 mg PO TID@1000,1400,2200 [facility] Stop: 06/23/19 13:59 Last Admin: 06/08/19 07:46 Dose: 0.5 mg Documented by: Bismuth Subsalicylate (Kaopectate) 15 ml PO PRN PRN PRN Reason: Loose Stool Stop: 06/22/19 22:53 Clonazepam (Klonopin) 0.5 mg PO BID17 [facility] Stop: 07/08/19 16:59 Fluconazole (Diflucan) 200 mg PO Mo@0900 [facility] Stop: 07/01/19 08:59 Last Admin: 06/02/19 07:55 Dose: 200 mg Documented by: Hydroxyzine HCl (Vistaril) 50 mg PO HSZ PRN PRN Reason: Insomnia Stop: 06/22/19 22:53 Last Admin: 06/08/19 00:09 Dose: 50 mg Documented by: Hydroxyzine HCl (Vistaril) 50 mg PO TODAY@ [facility] Stop: 07/08/19 19:59 Lorazepam (Ativan) 1 mg PO TID PRN PRN Reason: Anxiety Stop: 06/22/19 22:54 Last Admin: 06/06/19 10:40 Dose: 1 mg Documented by: Magnesium Hydroxide (Milk Of Magnesia) 30 ml PO DAILY PRN PRN Reason: Constipation Stop: 06/22/19 22:53 Metformin HCl (Glucophage) 500 mg PO DAILYBD [facility] Stop: 07/05/19 17:14 Last Admin: 06/07/19 17:25 Dose: 500 mg Documented by: Paliperidone (Invega) 3 mg PO Q6 PRN PRN Reason: Agitation Stop: 06/23/19 17:59 Last Admin: 06/07/19 19:46 Dose: 3 mg Documented by: Paliperidone (Invega) 6 mg PO QAM SARA Stop: 06/24/19 13:14 Last Admin: 06/08/19 07:46 Dose: 6 mg Documented by: Sodium Chloride (Tensas Nasal) 1 - 2 sprays NA PRN PRN PRN Reason: Nasal Dryness/Congestion Stop: 06/22/19 22:53 Mental Health & Subst Abuse Tx Psychiatrist Name of Psychiatrist: Dr. Wise Psychiatrist's Date of Appointment with Psychiatrist: 06/11/19 Time of Appointment with Psychiatrist: 12:20pm Psychiatric Appointment Comment: [address] [place] [address], [address] Therapist Name of Therapist: [facility] - Delma Durant Therapist's Date of Therapist Appointment: 06/10/19 Time of Therapist Appointment: 9:00 a.m. Therapy Appointment Comment: Telephone appt Professor Of Astronomy Name of Professor Of Astronomy: [facility] Service Zeferino Barron Phone Number for Professor Of Astronomy: [phone] Post Discharge Appointments Primary Care Physician Name Of Family Doctor: Cristiana Lyons Primary Care Provider Appointment Comment: [address] [facility] Contact Information Discharge Discharge Address: [address] [place] [address], [place] [address]
[2019-06-08] MEDS: METFORMIN HCL 500 MG TAB PO SCH (17:28)
[2019-06-09] MEDS: BENZTROPINE MESYLATE 0.5 MG TAB PO SCH ×2 (07:38→12:30)
[2019-06-09] MEDS: FLUCONAZOLE 100 MG TAB PO SCH (07:39)
[2019-06-09] MEDS: clonazePAM 0.5 MG TAB PO SCH (07:39)
[2019-06-09] MEDS: PALIPERIDONE 3 MG TABCR PO SCH (07:39)
--- NOTE | 2019-06-09 10:23 | Discharge Summary ---
Date of Service June 09, 2019 History of Present Illness Per Dr. Rockwell: Noted increase in paranoia and hallucinations (auditory) since March. 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 Reports he is less sedated/fewer side effects overall on Abilify but "my thinking just isn't quite right". He reports feeling off topic and disorganized at times and now preoccupied with safety, particularly at night resulting in several days of poor sleep. He also reports decreased appetite and feels isolated from housemates. Normally he goes to [facility] but this was discontinued due to COVID-19. He was seen in ED on 05/20 but [place] were rather non- specific and not command in nature so he was safety planned home. Sleep only worsened and birmingham did become command in sense he believed he may harm someone. He also made statements about there being an implant in his head and believes money was removed from his family accounts. Physical Exam Psychiatric Orientation: alert and cooperative Apperance: appropriately dressed, appropriately groomed and appeared stated age Eye Contact: + fair eye contact Motor Behavior: steady gait and station Mild fidgeting Speech: normal rate/rhythm/volume of speech Affect: + anxious affect and mood congruent with affect "Pretty good, better." Thought Process: goal directed thought process Thought Content: + preoccupation (Latter Day themes, recently reading the Bible), reality based without delusions and + loneliness Suicidal Thoughts: denies suicidal thoughts Homicidal Thoughts: denies homicidal thoughts Hallucinations: no auditory hallucinations and no visual hallucinations Cognition: recent memory grossly intact, attention grossly intact and language grossly intact Estimated Intelligence: consistent with education level Insight: + fair insight Judgement: + impaired judgement Vital Signs (Past 24 Hours) Last Vital Signs Temp 36.4 C L 06/09/19 06:41 Pulse 76 06/09/19 06:42 Resp 18 06/09/19 06:41 BP 113/76 06/09/19 06:42 Pulse Ox 96 06/08/19 12:23 Principal Diagnosis Schizophrenia Psychiatric Data The patient was hospitalized for 17 days. He had multiple medication adjustments and coordination with his outpatient psychiatrist: Oral paliperidone was added (in addition to Abilify Maintena, which he received 05/23/2019), lorazepam was increased and clonazepam added, hydroxyzine added for sleep, and metformin added to combat antipsychotic-induced weight gain. He was calm and cooperative with treatment, attended to participated in groups and therapy, and was able to process stressors, predominantly issues with his parents and social isolation, living at a [facility]. He discharge planning meeting was held for 06/03/2019 with [facility] staff and his home health care case manager, during which he discussed his frustrations and concerns, and staff encouraged him to communicate these more openly with them. He expressed concerns that he was being given extra cleaning tasks, including cleaning up after other residents. They also agreed to help him to look for a new therapist. His anxiety was often exacerbated by discharge planning, and at times he reported considering leaving the [facility] and moving back in with his parents, but at other times stated he did not have a healthy relationship with his parents and did not want to have contact with them. He would perseverate on disturbing, intrusive thoughts, but was able to reality test with staff. He tolerated the additional medications well, with some mild sedation, and doses and timing were adjusted to minimize daytime somnolence. He was able to set some short and long-term goals for himself, including improving communication with [facility] staff and his other clinicians/providers, making friends, and eventually getting a part-time job. He was also encouraged to work on a plan to combat social isolation, as he expressed concerns about returning to the CRR given the current pandemic restrictions, and his already limited social contact. His mood and psychotic symptoms improved throughout his stay, and anxiety improved although he continued to have episodic anxiety and intrusive thoughts. Day of Discharge Assessment Staff report the patient has been attending and participating in groups and therapy, rated his mood and 9/10, is performing his ADLs independently and eating well. On my assessment, he states that he is "feeling a little better today," and although he reports continued episodes of anxiety related to discharge, states "I think the time is about right" for him to leave. He reports improved sleep, and thinks the medication adjustments made here have been helpful. He states that he is worried about being isolated at the halfway, but was told that there will be some groups available by phone which he plans to participate in. He denies suicidal and homicidal thoughts, and denies hallucinations. He reports occasional ruminative, intrusive thoughts, and gives the example of reading the Bible and then "having a hard time wrapping my mind around the Bible, there's some fantastical stuff in there." He is able to review his coping skills, including reality testing/discussing his thoughts with other people, which he finds helpful. He denies safety concerns with discharge. He reports some anxiety about what will happen if he needs to come back into the hospital, and was able to review his safety plan in detail, including who he would contact if he were feeling unsafe. Transition of Care Transition Of Care Record: was reviewed with the patient Advance Directives Advance Directives Information Provided: Yes Advance Directives: No Mental Health Advance Directive: No Advance Directives on File: No Living Will: No Power of Energy Systems Laboratory Director: No Advance Directives Reason:: Declines as Mental Health Visit. Risk Factors Assessment Risk factors were mitigated by admission to the inpatient unit, use of medicati ons to target psychotic and anxiety symptoms, involving the patient in groups and therapy, meeting involving his outpatient supports, coordinating care with his outpatient psychiatrist, and working on healthy coping skills and his discharge safety plan. He has demonstrated improvement in symptoms, resolution of auditory hallucinations and suicidal thoughts, is taking medications as prescribed and tolerating them well, and is performing ADLs independently. He is no longer at acute risk of harm to himself, so can be managed as an outpatient at this time. Male: Yes : Yes Do You Have Access To A Gun?: No Health Problems: No Mental Health Diagnoses: Yes Substance Use Disorders: No Previous Attempt: No Family History of Suicide: No Previous Psychiatric Hospitalization: Yes Hopelessness: No Smoker: No Protective Factors Assessment Latter Day Beliefs: Yes : No Responsible for Young Children: No Employed: No Stable Relationships: Yes Supportive Family: Yes Good Rapport with Provider: Yes Tobacco Cessation at Discharge Tobacco Cessation Medication Prescribed at Discharge: Not Applicable/Non-Smoker Total Time Total Time Spent: Greater Than 30 Minutes Total Time Includes: Examination of the patient, Discharge Planning and Medication Reconciliation Discharge Data Lab Results 05/23/19 05/23/19 05/23/19 17:55 17:55 18:31 WBC 10.16 RBC 5.33 Hgb 16.5 Hct 46.5 MCV 87.2 MCH 31.0 MCHC 35.5 RDW Std Deviation 46.6 H RDW Coeff of Fidelina 14.6 H Plt Count 147 MPV 12.2 H Immature Gran % (Auto) 0.2 Neut % (Auto) 72.6 Lymph % (Auto) 17.3 [place] % (Auto) 8.9 Eos % (Auto) 0.7 Baso % (Auto) 0.3 Immature Gran # (Auto) 0.02 Neut # (Auto) 7.38 H Lymph # (Auto) 1.76 [place] # (Auto) 0.90 H Eos # (Auto) 0.07 Baso # (Auto) 0.03 Sodium Potassium Chloride Carbon Dioxide Anion Gap BUN Creatinine Est Cr Clr Drug Dosing Est GFR ( Amer) Est GFR (Non-Af Amer) BUN/Creatinine Ratio Glucose Fasting Glucose Calcium Total Bilirubin AST ALT Alkaline Phosphatase Total Protein Albumin Globulin Albumin/Globulin Ratio Triglycerides Cholesterol LDL Cholesterol, Calc VLDL Cholesterol, Calc HDL Cholesterol Cholesterol/HDL Ratio TSH Urine Color Dark Yellow Urine Appearance Clear Urine pH 5.5 Ur Specific [place] 1.038 H Urine Protein Trace H Urine Glucose (UA) Negative Urine Ketones 2+ H Urine Blood Negative Urine Nitrite Negative Urine Bilirubin Negative Urine Urobilinogen Negative Ur Leukocyte Esterase Negative Urine WBC (Auto) 1-5 Urine RBC (Auto) 0-4 U Hyaline Cast (Auto) 1-5 U Epithel Cells (Auto) 20-30 H Urine Bacteria (Auto) Negative Urine Mucus Present A Salicylates Urine Opiates Screen Neg Ur Methadone, Qual Neg Acetaminophen Urine Barbiturates Neg Ur Phencyclidine (PCP) Neg U Amphetamin/Meth Scrn Neg MDMA (Ecstasy) Screen Neg U Benzodiazepines Scrn Neg Ur Cocaine Metabolite Neg U Marijuana (THC) Screen Neg Ethyl Alcohol mg/dL 05/23/19 05/23/19 05/23/19 18:31 18:31 18:31 WBC RBC Hgb Hct MCV MCH MCHC RDW Std Deviation RDW Coeff of Fidelina Plt Count MPV Immature Gran % (Auto) Neut % (Auto) Lymph % (Auto) [place] % (Auto) Eos % (Auto) Baso % (Auto) Immature Gran # (Auto) Neut # (Auto) Lymph # (Auto) [place] # (Auto) Eos # (Auto) Baso # (Auto) Sodium 137 Potassium 3.5 Chloride 106 Carbon Dioxide 26 Anion Gap 5.0 BUN 11 Creatinine 0.99 Est Cr Clr Drug Dosing 145.5 Est GFR ( Amer) 115.5 Est GFR (Non-Af Amer) 99.7 BUN/Creatinine Ratio 10.8 Glucose 91 Fasting Glucose Calcium 9.3 Total Bilirubin 0.9 AST 43 H ALT 78 Alkaline Phosphatase 76 Total Protein 7.8 Albumin 4.1 Globulin 3.7 Albumin/Globulin Ratio 1.1 Triglycerides Cholesterol LDL Cholesterol, Calc VLDL Cholesterol, Calc HDL Cholesterol Cholesterol/HDL Ratio TSH 1.310 Urine Color Urine Appearance Urine pH Ur Specific [place] Urine Protein Urine Glucose (UA) Urine Ketones Urine Blood Urine Nitrite Urine Bilirubin Urine Urobilinogen Ur Leukocyte Esterase Urine WBC (Auto) Urine RBC (Auto) U Hyaline Cast (Auto) U Epithel Cells (Auto) Urine Bacteria (Auto) Urine Mucus Salicylates < 1.7 L Urine Opiates Screen Ur Methadone, Qual Acetaminophen < 2 L Urine Barbiturates Ur Phencyclidine (PCP) U Amphetamin/Meth Scrn MDMA (Ecstasy) Screen U Benzodiazepines Scrn Ur Cocaine Metabolite U Marijuana (THC) Screen Ethyl Alcohol mg/dL < 3.0 05/25/19 07:33 WBC RBC Hgb Hct MCV MCH MCHC RDW Std Deviation RDW Coeff of Fidelina Plt Count MPV Immature Gran % (Auto) Neut % (Auto) Lymph % (Auto) [place] % (Auto) Eos % (Auto) Baso % (Auto) Immature Gran # (Auto) Neut # (Auto) Lymph # (Auto) [place] # (Auto) Eos # (Auto) Baso # (Auto) Sodium Potassium Chloride Carbon Dioxide Anion Gap BUN Creatinine Est Cr Clr Drug Dosing Est GFR ( Amer) Est GFR (Non-Af Amer) BUN/Creatinine Ratio Glucose Fasting Glucose 86 Calcium Total Bilirubin AST ALT Alkaline Phosphatase Total Protein Albumin Globulin Albumin/Globulin Ratio Triglycerides 105 Cholesterol 192 LDL Cholesterol, Calc 118 VLDL Cholesterol, Calc 21 HDL Cholesterol 53 Cholesterol/HDL Ratio 4 TSH Urine Color Urine Appearance Urine pH Ur Specific [place] Urine Protein Urine Glucose (UA) Urine Ketones Urine Blood Urine Nitrite Urine Bilirubin Urine Urobilinogen Ur Leukocyte Esterase Urine WBC (Auto) Urine RBC (Auto) U Hyaline Cast (Auto) U Epithel Cells (Auto) Urine Bacteria (Auto) Urine Mucus Salicylates Urine Opiates Screen Ur Methadone, Qual Acetaminophen Urine Barbiturates Ur Phencyclidine (PCP) U Amphetamin/Meth Scrn MDMA (Ecstasy) Screen U Benzodiazepines Scrn Ur Cocaine Metabolite U Marijuana (THC) Screen Ethyl Alcohol mg/dL Hospital Course (1) Paranoid schizophrenia: 05/23--The patient was admitted to the [facility] ([facility] mental health unit) on q15 min checks (behavioral with suicide precautions) for safety. The patient will participate in group, recreational, and milieu therapies and will be offered additional individual and family sessions as clinically appropriate. Case discussed with Dr. Wise. Agreed to offer Invega and Ativan prns with plan to use in combo with Abilify Maintena over next month while Abilify in system. Avoid typicals as prone to EPS if possible. 05/24--increase Invega to 6 mg, he'd prefer am dosing. Will add standing Klonopin to minimize breakthrough/Ativan prns. 05/25--continue current med plan for today, if remains sedated may dose Klonopin TID, no evidence of NMS, if fever check CPK and consult with infection control. 05/26--continue paliperidone 6 mg daily and 3 mg as needed, clonazepam 0.5 mg twice daily, and lorazepam 1 mg 3 times daily as needed. Patient remains afebrile and normotensive, but has had episodes of tachycardia. He reports resolution of cough and denies other URI symptoms. Tachycardia may be due to anxiety, as he reports feeling distraught about the command auditory hallucinations. --306 conversion hearing held today; --Schedule discharge planning meeting with [facility]R staff and home health care case manager. Care coordinated with Dr. Wise; will also notify his therapist Delma Durant of hospitalization. 05/27--Continue current medication regimen - anticipate conversion to Invega Sustenna ~4 weeks after previous Abilify Maintena injection was given. Pt currently on a 305 inpatient commitment. --Dietary consult placed due to patient's focus on snack choices and reported concern surrounding significant weight increase when on Invega Sustenna in the past. --Discharge planning meeting scheduled for 06/02 with CRR staff and CM --Coordinate outpatient appointments 05/28--Continue current medication regimen --Remainder of treatment plan as above 05/29 - Continue current medication regimen, patient reportedly having a more difficult day today - Pt agreeable with initiation of metformin in attempts to combat metabolic side effects of atypical antipsychotic medications. Will begin with 250mg each evening with dinner and titrate as tolerated (low dose as patient is often preoccupied with medication changes and side effects). - Meeting with CRR staff and CM on 06/02 - will discuss discharge planning further 05/30-06/01 --continue current medications, encourage patient to work on coping skills (reality testing, identifying healthy supports, examining what his daily structure will be after discharge as OP programming changes due to the pandemic). --Discharge planning meeting with his home health care case manager and halfway staff 06/03/201906/02 - Continue psychiatric medication regimen as above - pt was agreeable with increasing metformin to 500mg with dinner starting this evening. - Positive meeting took place today with the patient, his home health care case manager, and CRR representation - Pt reporting desire to have "like a couple good days in a row" before feeling comfortable with discharge home 06/03 -Continue to encourage group attendance and participation, provide support, and assist the patient to identify short and long-term goals and a plan for how to reach them. He would also benefit from identifying healthy coping skills and reality testing methods. He would be helpful to make a daily schedule to ease his transition back to the CRR, as his current supports are limited due to the pandemic. 06/04 - Continue current medication regimen, patient reporting prn paliperidone was very effective for him yesterday afternoon - Continue therapeutic plan as above, patient continues to require significant assistance from staff regarding recommendations to reach out to his positive supports from [facility] regarding goal planning and coping skills - Despite patient asking staff to stop informing him when his parents call into the unit, patient has been calling them of his own accord - reporting the phone calls are distressing to him. - Given several outpatient psychiatric appointments next week, encourage working with patient on setting discharge goals and a daily schedule - consider discharge early next week if condition remains stable 06/05 - Continue treatment plan as outlined above - Anticipate working with [facility] staff to coordinate a discharge as early as 06/09/201906/07 - shift klonopin from hs to 5 pm to address breakthrough anxiety. He has used Vistaril throughout his stay here and is now agreeable to standing dose to ease transition back to halfway. 06/08 -Discharge to [facility] halfway. Follow-up with Dr. Wise 06/11/2019 Mental Health & Subst Abuse Tx Psychiatrist Name of Psychiatrist: Dr. Wise Psychiatrist's Date of Appointment with Psychiatrist: 06/11/19 Time of Appointment with Psychiatrist: 12:20pm Psychiatric Appointment Comment: [address], [address], [place] Psychiatrist Release of Information: Obtained, Reviewed and Signed Therapist Name of Therapist: Elli Durant Therapist's Date of Therapist Appointment: 06/10/19 Time of Therapist Appointment: 9:00 a.m. Therapy Appointment Comment: Telephone appt Therapist Release of Information: Obtained, Reviewed and Signed Sports Medicine Coordinator Name of Sports Medicine Coordinator: [facility] Zeferino Barron Phone Number for Sports Medicine Coordinator: [phone] Date of Appointment with Sports Medicine Coordinator: 06/09/19 Case Management Appointment Comment: Will call you to check in post discharge Sports Medicine Coordinator Release of Information: Obtained, Reviewed and Signed Post Discharge Appointments Primary Care Physician Name Of Family Doctor: Cristiana Lyons Primary Care Provider Appointment Comment: [address] [place] [address] Primary Care Release of Information: Obtained, Reviewed and Signed Smoking Cessation Counseling Tobacco Cessation Medication Prescribed at Discharge: Not Applicable/Non-Smoker Contact Information Discharge Discharge Address: [address] [place] [id number] Discharge Plan Discharge Items Patient Disposition: Home - Self-Care Reason For Visit: PARANOID SCHIZOPHRENIA Discharge Diagnosis: Schizophrenia Activity: Per Instructions section Non-emergency contact: Psychiatrist, Therapist and Grants Officer Call non-emergency contact if: you have any medication questions and your symptoms worsen Follow-up/Referrals: Elia Lyons MD [Primary Care Provider] - Diet: Regular Addtl Attending Provider Instructions: SPECIAL CARE INSTRUCTIONS: 1. Follow through with your scheduled aftercare appointments. If unable to keep an appointment, please call to reschedule. 2. Take your medication only as prescribed. Medication should not be changed or stopped without the approval of your doctor. In the event of worsening symptoms or concerns about side effects, contact your doctor immediately. 3. Utilize new healthy coping skills, anger management skills, and stress management skills learned during your hospitalization. Journal feelings and process them with a support person. Identify stressors or situations that may result in relapse, deterioration or inappropriate behaviors and develop a plan to deal with those issues. 4. If your coping skills are ineffective and you are in crisis, contact your outpatient providers for direction. If unable to reach your providers, please call the CAN HELP LINE AT or go to the closest Emergency Room. 5. Avoid alcohol and un-prescribed drugs. 6. You have been provided with the Mental Health Advance Directives Pamphlet for your review. AFTERCARE APPOINTMENTS: * Please call your insurance company prior to your scheduled appointment to confirm your aftercare providers are covered. Take your insurance information to your appointments. WHO TO CALL AND WHEN: Medical Emergencies: For questions or emergencies related to your hospital stay, please contact the Inpatient Behavioral Health Unit at [phone]. A industrial designer is on-call 11/09 for the Behavioral Health Unit for emergencies At any time you feel your situation is an emergency, you may also call 911 immediately. Your Doctors Instructions noted above were prepared by provider Beba Monet MD. Pending Studies at Discharge: No Stand-Alone Forms: [facility] Inbilin, Smoking Cessation, Suicide Prevention Resources Medications and DC Order Prescriptions: New metformin [Glucophage] 500 mg Tablet 500 mg PO DAILYBD Qty: 60 RF: 0 clonazepam 0.5 mg Tablet 0.5 mg PO BID17 Qty: 14 RF: 0 hydroxyzine HCl 25 mg Tablet 50 mg PO HSZ PRN (Reason: sleep) Qty: 30 RF: 0 lorazepam 1 mg Tablet 1 mg PO TID PRN (Reason: anxiety) Qty: 21 RF: 0 paliperidone [Invega] 3 mg Tablet Extended Release 24hr 6 mg PO QAM Qty: 30 RF: 0 Continued Abilify Maintena 400 mg suspension,extended rel syring 300 mg IM Q4WK RF: 0 fluconazole [Diflucan] 200 mg tablet 200 mg PO DIRECTED PRN (Reason: Acne) RF: 0 benztropine 0.5 mg Tablet 0.5 mg PO TID RF: 0 acetaminophen [Tylenol Extra Strength] 500 mg Tablet 500 mg PO DIRECTED PRN (Reason: pain/fever) RF: 0 multivitamin Tablet 1 tab PO BID RF: 0 [place] [employer]-1000 1,000-200 mg Capsule 1 cap PO DAILY RF: 0 niacin 500 mg Tablet 500 mg PO BID RF: 0 niacin 1,000 mg Tablet Extended Release 1,000 mg PO HS RF: 0 ascorbic acid (vitamin C) [Vitamin C] 1,000 mg Tablet 1,000 mg PO BID RF: 0 cholecalciferol (vitamin D3) 2,000 unit Tablet,Chewable 2,000 unit PO DAILY RF: 0 vitamin E 400 unit Capsule 800 unit PO DAILY RF: 0 pyridoxine (vitamin B6) [Vitamin B-6] 100 mg Tablet 100 mg PO QPM RF: 0 vitamin B complex Tablet 1 tab PO DAILY RF: 0 Discontinued aripiprazole [Abilify] 5 mg Tablet 5 mg PO HS RF: 0 lorazepam [Ativan] 0.5 mg Tablet 0.5 mg PO TID RF: 0 Discharge Orders: Discharge Order (Routine); Ordered 06/09/19 Ordered By: Beba Monet Admission Data Admit Date/Time: 05/23/19 22:20 Attending Provider: Sandrita Rockwell Admit Provider: Sandrita Rockwell Primary Care Provider: Elia Lyons Other Interventions: Discharge Summary Assessment (RN) Last Done: 06/08/19 12:23 PSY Interdisciplinary Discharge Planning Last Done: 06/09/19 09:27 Coding Level of Care Code 77461 D/C day mgmt > 30 min Diagnoses Paranoid schizophrenia F20.0
[2019-06-09] MEDS: LORazepam 1 MG TAB PO PRN (12:30)
== END 2019-06-09 13:05 | disposition home or self-care (01) | DRG 885 ==
LOC: ED 17:45 → 3S 22:20